=== PATIENT | female | born 1955 | race Caucasian/White ===

== ENCOUNTER 2016-11-21 01:00 | Emergency (ER) ==
[2016-11-21 01:12] VITALS: BP 174/96; TEMP 96.8; BMI 26.6
[2016-11-21] MEDS ORDERED: SODIUM CHLORIDE 1,000 ML IV STA (01:36)
[2016-11-21 02:16] LABS: BASOPHILS % (AUTO) 0.3 % (0.0-3.0); EOSINOPHILS % (AUTO) 0.3 % (0.0-7.0); HEMATOCRIT 38.2 % (37.0-47.0); HEMOGLOBIN 12.8 g/dl (12.0-16.0); IMMATURE GRANULOCYTE % (AUTO) 0.5 % (0.0-5.0); LYMPHOCYTES # (AUTO) 1.3 K/uL (0.60-3.4); LYMPHOCYTES % (AUTO) 20.9 (10.0-50.0); MEAN CORPUSCULAR HEMOGLOBIN 29.2 pg (27.0-31.0); MEAN CORPUSCULAR HGB CONC 33.5 (31.8-35.4); MEAN CORPUSCULAR VOLUME 87.2 fl (81.0-99.0); MONOCYTES # (AUTO) 0.6 K/uL (0.4-2.0); MONOCYTES % (AUTO) 9.5 (0-10); NEUTROPHILS # (AUTO) 4.3 K/ul (2.0-6.9); NEUTROPHILS % (AUTO) 68.5; PLATELET COUNT 178 10^3/uL (140-440); RED BLOOD COUNT 4.38 10^6/ul (4.20-5.40); WHITE BLOOD COUNT 6.33 K/ul (4.6-10.2)
[2016-11-21 02:34] LABS: ALBUMIN 3.8 g/dL (3.4-5.0); ALBUMIN/GLOBULIN RATIO 0.93; ANION GAP 17.1; BILIRUBIN,TOTAL 0.49 mg/dL (0.00-1.20); BUN/CREATININE RATIO 11.5; CALCIUM 9.7 mg/dL (8.2-10.2); CREATININE 1.13 mg/dL (0.60-1.30); POTASSIUM 4.1 mmol/L (3.5-5.10); TOTAL PROTEIN 7.9 g/dL (5.8-8.1)
[2016-11-21] MEDS: ATIVAN IVP PRN ×3 (02:46→06:02)
[2016-11-21 03:03] LABS: ABG BASE EXCESS 6 (-2.0-2.0); ABG HCO3 29.5 (22.0-26.0); ABG PCO2 36.6 mmHg (35-45); ABG PH 7.514 (7.35-7.45); ABG TCO2 31 (22.0-28.0)
[2016-11-21 03:16] LABS: TROPONIN I 0.014 ng/ml (0.0000-0.4000)
[2016-11-21 04:00] LABS: BILIRUBIN,URINE 1+ (NEGATIVE); KETONES,URINE Negative (NEGATIVE); LEUKOCYTE ESTERASE ,URINE Negative (NEGATIVE); NITRITE,URINE Negative (NEGATIVE); PH,URINE 5.5 (5-9); PROTEIN,URINE 1+ (NEGATIVE); URINE, BLOOD Negative (NEGATIVE)
[2016-11-21 04:01] LABS: ADD URINE MICROSCOPIC YES
[2016-11-21 04:11] LABS: COCAIN SCREEN,URINE NEGATIVE (NEGATIVE)
--- NOTE | 2016-11-21 04:15 | CT ---
EXAM: CT brain without contrast HISTORY: Mental status change TECHNIQUE: CT of the brain without intravenous contrast FINDINGS: There is no acute hemorrhage midline shift or mass effect. No hydrocephalus or abnormal extra-axial fluid collection. Chronic microvascular changes of the periventricular white matter, mi ld. No parenchymal attenuation abnormalities otherwise. Relative preservation of cortical volume. The bony cranium appears normal. The visualized paranasal sinuses are clear. Soft tissues without s ignificant abnormality. IMPRESSION: 1. Minor chronic microvascular change of the periventricular white matter. No acute intracranial a bnormality is seen.
--- NOTE | 2016-11-21 04:18 | CT ---
Exam: CT of the chest without contrast History: Chronic obstructive pulmonary disease and altered mental status Technique: [address] of the chest without intravascular contrast FINDINGS: The lung windows show no infiltrative opacities, suspicious nodules or masses. Mild emph ysematous change. Atherosclerotic calcification of the aorta and coronary arteries. No aneurysmal dilation of the aorta. Left approach pacemaker. No pathologic lymph node enlargement or abundance. Prior healed right-sided rib fractures. No acute findings of the bony thorax or chest wall soft t issues. Prior left sided rib fractures also present. Prior low grade thoracic spine wedge deformiti es at T12 and T11. No acute findings of the upper abdomen. Impression: 1. No acute findings of the chest 2. Mild emphysematous change
--- NOTE | 2016-11-21 05:22 | ED.PDOC ---
General Stated Complaint: brought in with her for altered mental status Time Seen by Physician: 01:05 Mode of Arrival: Walk-In Information Source: Patient, Family Exam Limitations: No limitations Nursing and Triage Documentation Reviewed and Agree: Yes <RANI EDGE - Last Filed: 11/21/16 05:55> <DAVON VALLADARES JR - Last Filed: 11/21/16 08:42> ED Provider: [facility] DAVON [facility]ES JR [facility] (DAVON VALLADARES JR) Chief Complaint: Altered Mental Status Primary Care Provider: JAMISON CABRERA ([facility] (DAVON VALLADARES JR) Neurological Complaint Exam - Altered Mental Status Complaint/Exam Current Mental Status: Unresponsiveness, Confusion Onset: Gradual Symptoms Are: Still present Timing: Constant Initial Severity: Mild Current Severity: Moderate Eye Deviation Present: No Character: Reports: Confusion, Agitation, Lethargy Aggravating: Reports: Ingestion Alleviating: Reports: None Associated Signs and Symptoms: Denies: Dizziness, Weakness, Headache, Fever, Illness, Nuchal rigidity, Seizure, Nausea, Vomiting, Recently depressed, Trauma Related History: Reports: Similar episode (brought in several times with same malady) Carotid Bruit Present: No Nystagmus Present: No Gag Reflex Present: Yes Meningeal Signs Positive: No Focal Weakness: Present: None Focal Sensory Loss: Present: None Gait: Unsteady Romberg Test Positive: No Signs of Injury: Present: Normal findings Thrombolytics Considered: No Differential Diagnoses: Medication reaction, Other <RANI EDGE - Last Filed: 11/21/16 05:55> Review of Systems - Review Of Systems Constitutional: Reports: No symptoms Eyes: Reports: No symptoms Ears, Nose, Mouth, Throat: Reports: No symptoms Respiratory: Reports: No symptoms Cardiac: Reports: No symptoms GI: Reports: No symptoms : Reports: No symptoms Musculoskeletal: Reports: No symptoms Skin: Reports: No symptoms Neurological: Reports: Cognitive dysfunction Endocrine: Reports: No symptoms Hematologic/Lymphatic: Reports: No symptoms All Other Systems: Reviewed and Negative <RANI EDGE - Last Filed: 11/21/16 05:55> Past Medical History - Past Medical History Previously Healthy: No Endocrine: Reports: None Cardiovascular: Reports: Hypertension Respiratory: Reports: COPD, Asthma, Pneumonia Hematological: Reports: Anemia Gastrointestinal: Reports: GERD Genitourinary: Reports: CKD Neuro/Psych: Reports: CVA, Schizophrenia Musculoskeletal: Reports: Arthritis, Other Cancer: Reports: Unknown Last Menstrual Period: UNKNOWN Other Pertinent Past Medical History: colon resection - Surgical History General Surgical History: Reports: Appendectomy, Pacemaker, Orthopedic (LEFT LEG FRACTURE,lorne in leg leg and hip SURGERY), Other (KIDNEY, COLON RESECTION, LEFT LEG) - Family History Family History: Reports: Unknown - Social History Smoking Status: Current every day smoker, Heavy tobacco smoker Hx Substance Use: Yes (MARIJUANA IN THE PAST) Alcohol Screening: None Lives: With family - Immunizations Tetanus Shot up to Date: Yes <RANI EDGE Filed: 11/21/16 05:55> Physical Exam - Physical Exam Appearance: Well-appearing, No pain distress, Well-nourished Eyes: SETH, EOMI, Conjunctiva clear ENT: Ears normal, Nose normal, Oropharynx normal Neck: Supple Respiratory: Airway patent, Breath sounds clear, Breath sounds equal, Respirations nonlabored Cardiovascular: RRR, Pulses normal, No rub, No murmur GI/: Soft, Nontender, No masses, Bowel sounds normal, No Organomegaly Musculoskeletal: Normal strength, ROM intact, No edema, No calf tenderness Skin: Warm, Dry, Normal color Neurological: Sensation intact, Motor intact, Reflexes intact, Cranial nerves intact, Disoriented Psychiatric: Affect appropriate, Mood appropriate <RANI EDGE Filed: 11/21/16 05:55> Interpretation - Radiology Interpretation Radiology Interpretation By: Radiologist Radiology Results: Negative Exam Interpreted: CT Scan - EKG Interpretation Time of EKG #1: 02:20 Rate: Normal Rhythm: Sinus Ectopy: None [place]: NL ST Segment: Normal Interpretation: nsr <RANI EDGE Filed: 11/21/16 05:55> Re-Evaluation - Re-Evaluation Time of Re-Evaluation: 05:23 Status: Improved (asleep) Vital Signs Stable: Yes Pain Level: 0 Appearance: NAD Lungs: Clear Skin: Warm and Dry Neuro: Alert and Oriented X3 CV: RRR <RANI EDGE Filed: 11/21/16 05:55> Physician Notification - Case Discussed Physician Notified: dr valladares Time of Notification: 05:23 <RANI EDGE Filed: 11/21/16 05:55> - Case Discussed Endorsed To/Discussed With: 0700 dr nowak Time of Discussion: 07:00 <DAVON VALLADARES JR - Last Filed: 11/21/16 08:42> Critical Care Note - Critical Care Note Total Time (mins): 15 <RANI EDGE - Last Filed: 11/21/16 05:55> Course - Course Hematology/Chemistry: 11/21/16 02:00 11/21/16 02:00 <RANI EDGE - Last Filed: 11/21/16 05:55> - Course Hematology/Chemistry: 11/21/16 02:00 11/21/16 02:00 <DAVON VALLADARES JR - Last Filed: 11/21/16 08:42> - Course Orders, Labs, Meds: Lab Review 11/21/16 11/21/16 11/21/16 01:33 02:00 03:55 WBC 6.33 RBC 4.38 Hgb 12.8 Hct 38.2 MCV 87.2 MCH 29.2 MCHC 33.5 RDW Coeff of Lynda 12.7 Plt Count 178 Immature Gran % (Auto) 0.5 Neut % (Auto) 68.5 Lymph % (Auto) 20.9 [place] % (Auto) 9.5 Eos % (Auto) 0.3 Baso % (Auto) 0.3 Immature Gran # (Auto) 0.0 Neut # 4.3 Lymph # 1.3 [place] # 0.6 Eos # 0.0 Baso # 0.0 D-Dimer 0.50 Puncture Site Lb O2 Saturation 100.0 ABG pH 7.514 H* ABG pCO2 36.6 ABG pO2 191.0 H ABG HCO3 29.5 H ABG Total CO2 31 H ABG Base Excess 6 H Aaron Test + FiO2 % 21.0 Sodium 142 Potassium 4.1 Chloride 107 Carbon Dioxide 22 L Anion Gap 17.1 BUN 13 Creatinine 1.13 Estimated GFR (MDRD) 49.00 BUN/Creatinine Ratio 11.50 Glucose 117 H Calcium 9.7 Total Bilirubin 0.49 AST 19 ALT 19 Alkaline Phosphatase 81 Total Creatine Kinase 69 Troponin I 0.0140 Total Protein 7.9 Albumin 3.8 Globulin 4.1 Albumin/Globulin Ratio 0.93 Urine Color Yellow Urine Clarity Clear Urine pH 5.5 Ur Specific Vivian >=1.030 Urine Protein 1+ Urine Glucose (UA) Negative Urine Ketones Negative Urine Blood Negative Urine Nitrite Negative Urine Bilirubin 1+ Urine Urobilinogen 0.2 Ur Leukocyte Esterase Negative Urine Microscopic RBC 0-2 Ur Squamous Epith Cells 2-5 Hyaline Casts 2-5 Salicylate Level mg/dL Urine Opiates Screen Positive Ur Oxycodone Screen Negative Urine Methadone Screen Negative Ur Propoxyphene Screen Negative Acetaminophen Ur Barbiturates Screen Negative U Tricyclic Antidepress Positive Ur Phencyclidine Scrn Negative Ur Amphetamine Screen Negative U Methamphetamines Scrn Negative U Benzodiazepines Scrn Positive Urine Cocaine Screen Negative U Cannabinoids Screen Negative Plasma/Serum Alcohol 11/21/16 05:35 WBC RBC Hgb Hct MCV MCH MCHC RDW Coeff of Lynda Plt Count Immature Gran % (Auto) Neut % (Auto) Lymph % (Auto) [place] % (Auto) Eos % (Auto) Baso % (Auto) Immature Gran # (Auto) Neut # Lymph # [place] # Eos # Baso # D-Dimer Puncture Site O2 Saturation ABG pH ABG pCO2 ABG pO2 ABG HCO3 ABG Total CO2 ABG Base Excess Aaron Test FiO2 % Sodium Potassium Chloride Carbon Dioxide Anion Gap BUN Creatinine Estimated GFR (MDRD) BUN/Creatinine Ratio Glucose Calcium Total Bilirubin AST ALT Alkaline Phosphatase Total Creatine Kinase Troponin I Total Protein Albumin Globulin Albumin/Globulin Ratio Urine Color Urine Clarity Urine pH Ur Specific Vivian Urine Protein Urine Glucose (UA) Urine Ketones Urine Blood Urine Nitrite Urine Bilirubin Urine Urobilinogen Ur Leukocyte Esterase Urine Microscopic RBC Ur Squamous Epith Cells Hyaline Casts Salicylate Level mg/dL < 5.0 Urine Opiates Screen Ur Oxycodone Screen Urine Methadone Screen Ur Propoxyphene Screen Acetaminophen < 3 L Ur Barbiturates Screen U Tricyclic Antidepress Ur Phencyclidine Scrn Ur Amphetamine Screen U Methamphetamines Scrn U Benzodiazepines Scrn Urine Cocaine Screen U Cannabinoids Screen Plasma/Serum Alcohol < 10.0 Orders Category Date Time Status ABG DRAW REQUEST Stat CARDIO 11/21/16 01:33 Completed EKG-(ED ONLY) Stat CARDIO 11/21/16 01:33 Completed IV [ED IV/MEDIPORT/POWERPORT] .ONCE EMERGENCY 11/21/16 01:36 Active ABG Stat LAB 11/21/16 01:33 Completed ACETAMINOPHEN Stat LAB 11/21/16 05:35 Completed CBC W/ AUTO DIFF Stat LAB 11/21/16 02:00 Completed COMPREHENSIVE METABOLIC PANEL Stat LAB 11/21/16 02:00 Completed CREATINE KINASE Stat LAB 11/21/16 02:00 Completed D-DIMER Stat LAB 11/21/16 02:00 Completed ETOH LEVEL [BLOOD ALCOHOL] Stat LAB 11/21/16 05:35 Completed SALICYLATE Stat LAB 11/21/16 05:35 Completed TROPONIN I Stat LAB 11/21/16 02:00 Completed URINALYSIS C & S IF INDICATED Stat LAB 11/21/16 03:55 Completed URINE DRUG SCREEN (RAPID FOR ED) [DRUG SCREEN, URINE, LAB 11/21/16 03:55 Completed RAPID] Stat 0.9 % Sodium Chloride [Saline Flush] MEDS 11/21/16 01:36 Active 1 syr IVF PRN PRN Diphenhydramine Inj [Benadryl] MEDS 11/21/16 06:57 Discontinued 25 mg IVP ONCE STA Hydroxyzine Pamoate [Vistaril] MEDS 11/21/16 08:24 Discontinued 50 mg PO ONCE STA Lorazepam Inj [Ativan] MEDS 11/21/16 02:09 Active 1 mg IVP Q2H PRN Lorazepam Inj [Ativan] MEDS 11/21/16 06:47 Discontinued 2 mg IVP ONCE STA Sodium Chloride 0.9% [Sodium Chloride] 1,000 ml MEDS 11/21/16 01:36 Active IV 30 mls/hr CT CHEST W/O CONTRAST Stat RADS 11/21/16 01:[address] HEAD W/O CONTRAST Stat RADS 11/21/16 01:34 Completed Medications Generic Name Dose Route Start Last Admin Trade Name Freq PRN Reason Stop Dose Admin Sodium Chloride 1,000 mls @ 30 mls/hr 11/21/16 01:36 11/21/16 03:10 Sodium Chloride IV 11/22/16 10:55 30 mls/hr .[id number] STA Administration Lorazepam 1 mg 11/21/16 02:09 11/21/16 06:02 Ativan IVP 1 mg Q2H PRN Administration Agitation Sodium Chloride 1 syr 11/21/16 01:36 11/21/16 02:50 Saline Flush IVF 1 syr PRN PRN Administration To flush IV Discontinued Medications Generic Name Dose Route Start Last Admin Trade Name Freq PRN Reason Stop Dose Admin Diphenhydramine HCl 25 mg 11/21/16 06:57 11/21/16 07:23 Benadryl IVP 11/21/16 06:58 25 mg ONCE STA Administration Hydroxyzine Pamoate 50 mg 11/21/16 08:24 11/21/16 08:30 Vistaril PO 11/21/16 08:25 50 mg ONCE STA Administration Lorazepam 2 mg 11/21/16 06:47 11/21/16 06:49 Ativan IVP 11/21/16 06:48 2 mg ONCE STA Administration (RANI EDGE) (DAVON VALLADARES JR) Vital Signs: Temp Pulse Resp BP Pulse Ox 11/21/16 01:01 96.8 F L 91 H 20 174/96 H 97 (RANI EDGE) (DAVON VALLADARES JR) Departure - Departure Time of Disposition: 05:23 Pt referred to PMD for follow-up: Yes Disposition Discussed With: Patient, Family <RANI EDGE - Last Filed: 11/21/16 05:55> <DAVON VALLADARES JR - Last Filed: 11/21/16 08:42> - Departure Disposition: HOME SELF-CARE Discharge Problem: Substance abuse Instructions: Polysubstance Abuse (ED) Condition: Stable Additional Instructions: f/u with pcsp Call your psychiatrist for medication refill today contact your personal physician for office follow up may take each morning medication when you get home and continue usual home medications return if fever over 101.0 or if unable to swallow medications advance diet gradually- begin with fluids when fully awake may resume usual activity recommend rest if any lightheadedness or drowsiness Allergies/Adverse Reactions: Allergies haloperidol [From Haldol] Allergy (Severe, Verified 11/21/16 01:13) swelling in mouth Pt to get medical alert necklace haloperidol lactate [From Haldol] Allergy (Severe, Verified 11/21/16 01:13) swelling in mouth Pt to get medical alert necklace olanzapine [From Zyprexa] Adverse Reaction (Severe, Verified 11/21/16 01:13) Hives oxytetracycline [From Terramycin] Adverse Reaction (Severe, Verified 11/21/16 01 :13) Hives oxytetracycline HCl [From Terramycin] Adverse Reaction (Severe, Verified 01:13) Hives Sulfa (Sulfonamide Antibiotics) Adverse Reaction (Verified 11/21/16 01:13) Home Medications: Ambulatory Orders Hydrocodone Bit/Acetaminophen [Lortab 10-500] 1 tab PO TID #1 11/02/14 Budesonide/Formoterol Fumarate [Symbicort 160-4.5 Mcg Inhaler] 2 puff IH BID Benztropine Mesylate 2 mg PO DAILY 04/20/15 Quetiapine Fumarate [Seroquel] 600 mg PO BEDTIME 10/29/16 Baclofen 20 mg PO BID 11/21/16 Citalopram Hydrobromide [Citalopram HBr] 40 mg PO BEDTIME 11/21/16 Cyclobenzaprine HCl 10 mg PO BID 11/21/16 Dicyclomine HCl 10 mg PO TID 11/21/16 Fluphenazine HCl 10 mg PO BEDTIME 11/21/16 Gabapentin 300 mg PO TID 11/21/16 Hydroxyzine HCl 50 mg PO TID 11/21/16 Omeprazole [Prilosec] 20 mg PO QDAC 11/21/16 Zolpidem Tartrate [Ambien] 5 mg PO BEDTIME 11/21/16
[2016-11-21 06:03] LABS: ACETAMINOPHEN < 3 ug/ml (10-30); SALICYLATE < 5.0 mg/dL (2.8-20.0)
[2016-11-21] MEDS ORDERED: ATIVAN IVP STA (06:47)
[2016-11-21] MEDS ORDERED: BENADRYL IVP STA (06:57)
[2016-11-21] MEDS ORDERED: VISTARIL PO STA (08:24)
== END 2016-11-21 08:45 | disposition home or self-care (01) ==
LOC: ED 01:00
DX: F19.10 Other psychoactive substance abuse, uncomplicated (principal); F20.9 Schizophrenia, unspecified; I10 Essential (primary) hypertension; F17.210 Nicotine dependence, cigarettes, uncomplicated; Z79.899 Other long term (current) drug therapy; Z87.19 Personal history of other diseases of the digestive system; Z86.73 Personal history of transient ischemic attack (TIA), and cerebral infarction without residual deficits; Z87.09 Personal history of other diseases of the respiratory system; Z95.0 Presence of cardiac pacemaker
CPT/HCPCS: 36415; 80053; 80306; 80307; 81001; 82550; 82803; 84484; 85025; 85379; 93005; 93010; 96360; 96361; 96374; 96375; 96376; 99285

== ENCOUNTER 2016-11-29 10:52 | Emergency (ER) ==
[2016-11-29 11:00] VITALS: BP 97/51; TEMP 97.9; BMI 27.4
--- NOTE | 2016-11-29 11:16 | ED.PDOC ---
General ED Provider: Dr. SHYLA KOHLI Chief Complaint: Non-specific Complaint Stated Complaint: Patient is a 61 year female who comes to the Er with right cathy area pain after she tripped over the cat and twisted right leg two days ago. States she has limited weight bearing on it. Time Seen by Physician: 11:14 Mode of Arrival: Wheelchair Information Source: Patient Exam Limitations: No limitations Primary Care Provider: JAMISON CABRERA Nursing and Triage Documentation Reviewed and Agree: Yes Musculoskeletal Complaint Exam - Hip/Pelvis Complaint/Exam Location of Pain: Reports: Right Mechanism of Injury: Reports: Trauma (Twisting when she tripped on cat ) Onset/Duration: 2 days Symptoms Are: Still present Initial Severity: Severe Current Severity: Moderate Location: Reports: Discrete Character: Reports: Aching, Throbbing Aggravating: Reports: Movement, Weight bearing Alleviating: Reports: Rest, Position Associated Signs and Symptoms: Denies: Swelling, Redness, Bruising, Fever, Weakness, Dizziness, Syncope, Abdominal pain, Knee pain Related History: Denies: Similar episode, Occupational injury Able to Bear Weight: Yes Septic Arthritis Risk Factors: Reports: None Related Surgical History: Reports: None Pelvis Palpation: Stable Hip/Pelvis Findings: Absent: Extremity shortened, Swelling, Ecchymosis, Erythema , Warmth, Blisters Tenderness: Present: Right, Pubis Range of Motion Limited In: Present: Extension NV Bundle Intact Distal to Injury: Yes Differential Diagnoses: Fracture, Sprain, Strain Review of Systems - Review Of Systems Constitutional: Reports: No symptoms Eyes: Reports: No symptoms Ears, Nose, Mouth, Throat: Reports: No symptoms Respiratory: Reports: No symptoms Cardiac: Reports: No symptoms GI: Reports: No symptoms : Reports: No symptoms Musculoskeletal: Reports: Joint pain Skin: Reports: No symptoms Neurological: Reports: Anxiety Endocrine: Reports: No symptoms Hematologic/Lymphatic: Reports: No symptoms All Other Systems: Reviewed and Negative Past Medical History - Past Medical History Previously Healthy: No Endocrine: Reports: None Cardiovascular: Reports: Hypertension Respiratory: Reports: COPD, Asthma, Pneumonia Hematological: Reports: Anemia Gastrointestinal: Reports: GERD Genitourinary: Reports: CKD Neuro/Psych: Reports: CVA, Schizophrenia Musculoskeletal: Reports: Arthritis, Other Cancer: Reports: Unknown Last Menstrual Period: 1999 Other Pertinent Past Medical History: colon resection - Surgical History General Surgical History: Reports: Appendectomy, Pacemaker, Orthopedic (LEFT LEG FRACTURE,lorne in leg leg and hip SURGERY), Other (KIDNEY, COLON RESECTION, LEFT LEG) - Family History Family History: Reports: Unknown - Social History Smoking Status: Current every day smoker Hx Substance Use: No Alcohol Screening: None - Immunizations Tetanus Shot up to Date: Yes Physical Exam - Physical Exam Appearance: Well-nourished Pain Distress: Mild Eyes: SETH Respiratory: Airway patent, Breath sounds clear, Breath sounds equal, Respirations nonlabored Cardiovascular: RRR, Pulses normal, No rub, No murmur GI/: Soft, Nontender, No masses, Bowel sounds normal, No Organomegaly Musculoskeletal: Normal strength, No edema, No calf tenderness, Limited ROM ( right hip ) Skin: Warm, Dry, Normal color Neurological: Sensation intact, Motor intact, Reflexes intact, Cranial nerves intact, Alert, Oriented Psychiatric: Affect appropriate, Mood appropriate Interpretation - Radiology Interpretation Radiology Interpretation By: Radiologist Radiology Results: Negative Exam Interpreted: Other (Pelvic and right hip. ) Critical Care Note - Critical Care Note Total Time (mins): 0 Course - Course Orders, Labs, Meds: Orders Category Date Time Status HIP, RIGHT 2 VIEWS Stat RADS 11/29/16 11:15 Completed PELVIS 1 OR 2 VIEWS Stat RADS 11/29/16 11:16 Completed Vital Signs: Temp Pulse Resp BP Pulse Ox 11/29/16 10:53 97.9 F 87 22 97/51 L 94 L Departure - Departure Time of Disposition: 12:19 Disposition: HOME SELF-CARE Discharge Problem: Hip sprain Instructions: Hip Sprain (ED) Condition: Fair Pt referred to PMD for follow-up: Yes Additional Instructions: Continue home medications Follow up with PCP in 3 days. Allergies/Adverse Reactions: Allergies haloperidol [From Haldol] Allergy (Severe, Verified 11/29/16 11:03) swelling in mouth Pt to get medical alert necklace haloperidol lactate [From Haldol] Allergy (Severe, Verified 11/29/16 11:03) swelling in mouth Pt to get medical alert necklace olanzapine [From Zyprexa] Adverse Reaction (Severe, Verified 11/29/16 11:03) Hives oxytetracycline [From Terramycin] Adverse Reaction (Severe, Verified 11/29/16 11 :03) Hives oxytetracycline HCl [From Terramycin] Adverse Reaction (Severe, Verified 11:03) Hives Sulfa (Sulfonamide Antibiotics) Adverse Reaction (Verified 11/29/16 11:03) Home Medications: Ambulatory Orders Hydrocodone Bit/Acetaminophen [Lortab 10-500] 1 tab PO TID #1 11/02/14 Budesonide/Formoterol Fumarate [Symbicort 160-4.5 Mcg Inhaler] 2 puff IH BID Benztropine Mesylate 2 mg PO DAILY 04/20/15 Quetiapine Fumarate [Seroquel] 600 mg PO BEDTIME 10/29/16 Baclofen 20 mg PO BID 11/21/16 Citalopram Hydrobromide [Citalopram HBr] 40 mg PO BEDTIME 11/21/16 Cyclobenzaprine HCl 10 mg PO BID 11/21/16 Dicyclomine HCl 10 mg PO TID 11/21/16 Fluphenazine HCl 10 mg PO BEDTIME 11/21/16 Gabapentin 300 mg PO TID 11/21/16 Hydroxyzine HCl 50 mg PO TID 11/21/16 Omeprazole [Prilosec] 20 mg PO QDAC 11/21/16 Zolpidem Tartrate [Ambien] 5 mg PO BEDTIME 11/21/16 Disposition Discussed With: Patient, Family
--- NOTE | 2016-11-29 11:59 | DI ---
Examination: Two radiographic images of the pelvis. Comparison: 11/29/2016 and 02/05/2015. Reason for study: Fall with right hip pain. FINDINGS: No acute fracture or dislocation. The the right femoral head is articulating with the [place] acetabulum. The pelvic ring appears to be intact. The partially imaged left intertrochanteric p late and screw fixation is unchanged from the prior study. Impression: No acute fracture or malalignment is seen within the right hip.
--- NOTE | 2016-11-29 11:59 | DI ---
Examination: Two radiographic images of the right hip. Comparison: Pelvic radiographs from the same day. Reason for study: Hip pain. FINDINGS: No acute fracture or dislocation. The femoral head articulates with the acetabulum. No obvious cortical irregularity or malalignment. Impression: No acute fracture or dislocation in the right hip.
== END 2016-11-29 12:38 | disposition home or self-care (01) ==
LOC: ED 10:52
DX: S73.101A Unspecified sprain of right hip, initial encounter (principal); W01.0XXA Fall on same level from slipping, tripping and stumbling without subsequent striking against object, initial encounter; F17.210 Nicotine dependence, cigarettes, uncomplicated
CPT/HCPCS: 99282; 99283

== ENCOUNTER 2017-02-20 09:00 | Outpatient (CLI) ==
--- NOTE | 2017-02-20 09:42 | DI ---
EXAM: Four views of the lumbar spine HISTORY: Facet arthropathy and degenerative disease of the lumbar spine. COMPARISON: Lumbar spine and 10/11/2008 FINDINGS: There is compression deformity at T11 and T12 which is unchanged. There is minimal compre ssion deformity at L3 which is stable. No new compression fracture is identified. There is no subl uxation. There is scattered facet arthropathy. The lumbosacral junction is intact and unchanged. There is atherosclerotic disease of the aorta. IMPRESSION: 1. No new/acute compression fracture or subluxation. 2. Multilevel compression deformity, stable since 2007. 3. Multilevel degenerative disease of the spine.
--- NOTE | 2017-02-20 09:42 | DI ---
EXAM: Cervical spine six view HISTORY: Cervical disc degeneration, disc disorder with radiculopathy COMPARISON: None TECHNIQUE: Five views cervical spine were performed including oblique views FINDINGS: Evaluation is limited due to patient positioning. C6 and C7 are partially obscured on th e lateral view. No fracture is visualized. Visualized vertebral bodies normal in height. Visualiz ed intervertebral disc spaces maintained with C6 and C7 not visualized. Multilevel facet and uncove rtebral hypertrophy. Evaluation of the neural foramen on the right is limited due to positioning. There could be neural foraminal narrowing on the right in the lower cervical spine though this is ve ry poorly evaluated. There is a 2 mm anterolisthesis of C3 on C4 and a 2 mm anterolisthesis of C4 o n C5. Prevertebral soft tissues appear normal IMPRESSION: 1. Limited examination due to positioning. 2. Chronic discogenic degenerative disease and facet arthrosis with 2 mm anterolisthesis of C3 on C 4 and C4 on C5
== END 2017-02-20 09:01 | disposition home or self-care (01) ==
LOC: RAD 09:00
PROVIDERS: ATTEND Pain Medicine Interventional Pain Medicine
DX: M51.36 Other intervertebral disc degeneration, lumbar region (principal); M51.37 Other intervertebral disc degeneration, lumbosacral region; M47.816 Spondylosis without myelopathy or radiculopathy, lumbar region; M47.817 Spondylosis without myelopathy or radiculopathy, lumbosacral region; M50.122 Cervical disc disorder at C5-C6 level with radiculopathy; M50.31 Other cervical disc degeneration, high cervical region; M50.321 Other cervical disc degeneration at C4-C5 level

== ENCOUNTER 2017-03-26 17:03 | Emergency (ER) ==
[2017-03-26 17:15] VITALS: BP 195/117; TEMP 97.2; BMI 28.3
[2017-03-26] MEDS ORDERED: TRANDATE IVP STA (17:15)
[2017-03-26] MEDS ORDERED: CATAPRES PO STA (17:15)
[2017-03-26 17:39] LABS: BASOPHILS % (AUTO) 0.3 % (0.0-3.0); EOSINOPHILS % (AUTO) 0.2 % (0.0-7.0); HEMATOCRIT 33.2 % (37.0-47.0); IMMATURE GRANULOCYTE % (AUTO) 0.5 % (0.0-5.0); LYMPHOCYTES # (AUTO) 1.6 K/uL (0.60-3.4); LYMPHOCYTES % (AUTO) 27.3 (10.0-50.0); MEAN CORPUSCULAR HEMOGLOBIN 29.5 pg (27.0-31.0); MEAN CORPUSCULAR HGB CONC 33.1 (31.8-35.4); MONOCYTES # (AUTO) 0.5 K/uL (0.4-2.0); MONOCYTES % (AUTO) 7.7 (0-10); NEUTROPHILS # (AUTO) 3.8 K/ul (2.0-6.9); PLATELET COUNT 143 10^3/uL (140-440); RED BLOOD COUNT 3.73 10^6/ul (4.20-5.40); WHITE BLOOD COUNT 5.98 K/ul (4.6-10.2)
[2017-03-26] MEDS ORDERED: NORVASC PO STA (18:04)
--- NOTE | 2017-03-26 18:04 | CT ---
EXAM: CT head without contrast HISTORY: Headache COMPARISON: CT head from 11/21/2016 TECHNIQUE: Helical axial CT of the head was performed without contrast. Coronal and sagittal reconst ructions were performed. FINDINGS: Examination is stable. There is no acute intracranial abnormality. There is no hemorrhage, mass, mid line shift, abnormal extra-axial fluid collection, hydrocephalus or evolving ischemia. The donald-whit e matter junction is well maintained. There is trace chronic small vessel ischemia in the [place]. Brain parenchyma, ventricles and sulci are otherwise normal. There are no acute calvarial lesions. Visualized orbits and globes are unremarkable. The mastoid a ir cells are poorly aerated. The visualized paranasal sinuses show no air-fluid levels. There is sergio e membrane thickening noted and maxillary sinus wall thickening on the right. The sphenoid sinus is hypoplastic. IMPRESSION: 1. No acute intracranial abnormality. There is some minimal chronic small vessel ischemia in the wh ite matter. 2. 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
--- NOTE | 2017-03-26 18:09 | ED.PDOC ---
General ED Provider: Dr. RANI DE LA PAZ-ER Chief Complaint: Hypertension Stated Complaint: my bp has been up for 3 days and my head hurts--my chest hurt yesterday but not today Time Seen by Physician: 17:05 Mode of Arrival: Walk-In Information Source: Patient, Family Exam Limitations: No limitations [facility] and Triage Documentation Reviewed and Agree: Yes Cardiovascular Complaint Exam - Hypertension Complaint/Exam Onset/Duration: 3 days Symptoms Are: Still present Timing: Constant Reported B/P Prior to Arrival: 200/120 Aggravating: Reports: None Alleviating: Reports: None Associated Signs and Symptoms: Reports: Headache. Denies: Chest pain, Vision changes, Anxiety, Recent stress, Numbness, Tingling, Weakness, Dizziness, Short of air, Swelling Related History: Reports: Current Kaiden Inhibitors Cardiac Risk Factors: Reports: Hypertension Recent Change in Medications: No A/V [place]: No Papilledema Present: No JVD Present: No Carotid Bruit Present: No Femoral Pulses Bounding: Yes Differential Diagnoses: Hypertension Review of Systems - Review Of Systems Constitutional: Reports: No symptoms Eyes: Reports: No symptoms Ears, Nose, Mouth, Throat: Reports: No symptoms Respiratory: Reports: No symptoms Cardiac: Reports: No symptoms GI: Reports: No symptoms : Reports: No symptoms Musculoskeletal: Reports: No symptoms Skin: Reports: No symptoms Neurological: Reports: Headache Endocrine: Reports: No symptoms Hematologic/Lymphatic: Reports: No symptoms All Other Systems: Reviewed and Negative Past Medical History - Past Medical History Previously Healthy: No Endocrine: Reports: None Cardiovascular: Reports: Hypertension Respiratory: Reports: COPD, Asthma, Pneumonia Hematological: Reports: Anemia Gastrointestinal: Reports: GERD Genitourinary: Reports: CKD Neuro/Psych: Reports: CVA, Schizophrenia Musculoskeletal: Reports: Arthritis, Other Cancer: Reports: Unknown Last Menstrual Period: N/A Other Pertinent Past Medical History: colon resection - Surgical History General Surgical History: Reports: Appendectomy, Pacemaker, Orthopedic (LEFT LEG FRACTURE,lorne in leg leg and hip SURGERY), Other (KIDNEY, COLON RESECTION, LEFT LEG) - Family History Family History: Reports: Unknown - Social History Smoking Status: Current every day smoker Hx Substance Use: No Alcohol Screening: None Lives: With family - Immunizations Tetanus Shot up to Date: Yes Physical Exam - Physical Exam Appearance: Well-appearing, No pain distress, Well-nourished Pain Distress: Mild Eyes: SETH, EOMI, Conjunctiva clear ENT: Ears normal, Nose normal, Oropharynx normal Neck: Supple Respiratory: Airway patent, Breath sounds clear, Breath sounds equal, Respirations nonlabored Cardiovascular: RRR, Pulses normal, No rub, No murmur GI/: Soft, Nontender, No masses, Bowel sounds normal, No Organomegaly Musculoskeletal: Normal strength, ROM intact, No edema, No calf tenderness Skin: Warm, Dry, Normal color Neurological: Sensation intact, Motor intact, Reflexes intact, Cranial nerves intact, Alert, Oriented Psychiatric: Affect appropriate, Mood appropriate Interpretation - Radiology Interpretation Radiology Interpretation By: Radiologist Radiology Results: Negative Exam Interpreted: CT Scan - EKG Interpretation Time of EKG #1: 18:10 Rate: Normal Rhythm: Sinus Ectopy: None [place]: NL ST Segment: Normal Re-Evaluation - Re-Evaluation Time of Re-Evaluation: 18:16 Status: Improved (bp 160/78--fallon resolved "i sure feel a lot better') Vital Signs Stable: Yes Pain Level: 0 Appearance: NAD Lungs: Clear Skin: Warm and Dry Neuro: Alert and Oriented X3 CV: RRR Critical Care Note - Critical Care Note Total Time (mins): 0 Course - Course Hematology/Chemistry: 03/26/17 17:35 Orders, Labs, Meds: Lab Review 03/26/17 17:35 WBC 5.98 RBC 3.73 L Hgb 11.0 L Hct 33.2 L MCV 89.0 MCH 29.5 MCHC 33.1 RDW Coeff of Lynda 13.0 Plt Count 143 Immature Gran % (Auto) 0.5 Neut % (Auto) 64.0 Lymph % (Auto) 27.3 Wise % (Auto) 7.7 Eos % (Auto) 0.2 Baso % (Auto) 0.3 Immature Gran # (Auto) 0.0 Neut # 3.8 Lymph # 1.6 Wise # 0.5 Eos # 0.0 Baso # 0.0 Orders Category Date Time Status EKG-(ED ONLY) Stat CARDIO 03/26/17 17:14 Completed Fitness Instructor [ED SERVICES HOST APPLIED] .ONCE EMERGENCY 03/26/17 17:15 Active IV [ED IV/MEDIPORT/POWERPORT] .ONCE EMERGENCY 03/26/17 17:15 Active CBC W/ AUTO DIFF Stat LAB 03/26/17 17:35 Completed COMPREHENSIVE METABOLIC PANEL Stat LAB 03/26/17 17:35 Received CREATINE KINASE Stat LAB 03/26/17 17:35 Received TROPONIN I Stat LAB 03/26/17 17:35 Received 0.9 % Sodium Chloride [Saline Flush] MEDS 03/26/17 17:15 Active 1 syr IVF PRN PRN Amlodipine Besylate [Norvasc] MEDS 03/26/17 18:04 Discontinued 5 mg PO ONCE STA Clonidine HCl [Catapres] MEDS 03/26/17 17:15 Discontinued 0.2 mg PO ONCE STA Labetalol HCl [Trandate] MEDS 03/26/17 17:15 Discontinued 20 [address] IVP ONCE STA CT HEAD W/O CONTRAST Stat RADS 03/26/17 17:27 Completed Medications Generic Name Dose Route Start Last Admin Trade Name Freq PRN Reason Stop Dose Admin Sodium Chloride 1 syr 03/26/17 17:15 03/26/17 18:02 Saline Flush IVF 1 syr PRN PRN Administration To flush IV Discontinued Medications Generic Name Dose Route Start Last Admin Trade Name Freq PRN Reason Stop Dose Admin Amlodipine Besylate 5 mg 03/26/17 18:04 Norvasc PO 03/26/17 18:05 ONCE STA Clonidine 0.2 mg 03/26/17 17:15 03/26/17 17:15 Catapres PO 03/26/17 17:16 0.2 mg ONCE STA Administration Labetalol HCl 20 mg 03/26/17 17:15 03/26/17 18:01 Trandate IVP 03/26/17 17:16 20 mg ONCE STA Administration Vital Signs: Temp Pulse Resp BP Pulse Ox 03/26/17 17:03 97.2 F L 83 20 195/117 H 93 L ELODIA Risk Score ELODIA Risk Score: Risk Score Odds of by 30D 0 0.1 (0.1-0.2) 1 0.3 (0.2-0.3) 2 0.4 (0.3-0.5) 3 0.7 (0.6-0.9) 4 1.2 (1.0-1.5) 5 2.2 (1.9-2.6) 6 3.0 (2.5-3.6) 7 4.8 (3.8-6.1) Departure - Departure Time of Disposition: 18:17 Disposition: HOME SELF-CARE Discharge Problem: HTN (hypertension) Qualifiers: Hypertension type: essential hypertension Qualifier Code: (I10) Essential ( primary) hypertension Instructions: Hypertensive Crisis (ED) Condition: Good Pt referred to PMD for follow-up: Yes Additional Instructions: continue lisinopril --add procardia xl 30mg #30--monitor bp--f/u with pcp Allergies/Adverse Reactions: Allergies haloperidol [From Haldol] Allergy (Severe, Verified 03/26/17 17:10) swelling in mouth Pt to get medical alert necklace haloperidol lactate [From Haldol] Allergy (Severe, Verified 03/26/17 17:10) swelling in mouth Pt to get medical alert necklace olanzapine [From Zyprexa] Adverse Reaction (Severe, Verified 03/26/17 17:10) Hives oxytetracycline [From Terramycin] Adverse Reaction (Severe, Verified 03/26/17 17 :10) Hives oxytetracycline HCl [From Terramycin] Adverse Reaction (Severe, Verified 17:10) Hives Sulfa (Sulfonamide Antibiotics) Adverse Reaction (Verified 03/26/17 17:10) Home Medications: Ambulatory Orders Hydrocodone Bit/Acetaminophen [Lortab 10-500] 1 tab PO TID #1 11/02/14 Budesonide/Formoterol Fumarate [Symbicort 160-4.5 Mcg Inhaler] 2 puff IH BID Benztropine Mesylate 2 mg PO DAILY 04/20/15 Quetiapine Fumarate [Seroquel] 600 mg PO BEDTIME 10/29/16 Baclofen 20 mg PO BID 11/21/16 Citalopram Hydrobromide [Citalopram HBr] 40 mg PO BEDTIME 11/21/16 Cyclobenzaprine HCl 10 mg PO BID 11/21/16 Dicyclomine HCl 10 mg PO TID 11/21/16 Fluphenazine HCl 10 mg PO BEDTIME 11/21/16 Gabapentin 300 mg PO TID 11/21/16 Hydroxyzine HCl 50 mg PO TID 11/21/16 Omeprazole [Prilosec] 20 mg PO QDAC 11/21/16 Zolpidem Tartrate [Ambien] 5 mg PO BEDTIME 11/21/16 Hydroxyzine HCl 25 mg PO BEDTIME 12/24/16 Disposition Discussed With: Patient, Family
[2017-03-26 18:15] LABS: ALBUMIN 3.5 g/dL (3.4-5.0); ALBUMIN/GLOBULIN RATIO 0.95; ANION GAP 11.5; BILIRUBIN,TOTAL 0.26 mg/dL (0.00-1.20); BUN/CREATININE RATIO 13.75; CALCIUM 9.1 mg/dL (8.2-10.2); CREATININE 0.8 mg/dL (0.60-1.30); POTASSIUM 3.5 mmol/L (3.5-5.10); TOTAL PROTEIN 7.2 g/dL (5.8-8.1); TROPONIN I 0.012 ng/ml (0.0000-0.4000)
[2017-03-26 18:35] LABS: CREATINE KINASE MB 3.5 ng/ml (0.0-3.6)
== END 2017-03-26 18:29 | disposition home or self-care (01) ==
LOC: ED 17:03
DX: I10 Essential (primary) hypertension (principal); R51 Headache; N18.9 Chronic kidney disease, unspecified; D63.1 Anemia in chronic kidney disease; J44.9 Chronic obstructive pulmonary disease, unspecified; F17.210 Nicotine dependence, cigarettes, uncomplicated; Z79.899 Other long term (current) drug therapy; Z86.73 Personal history of transient ischemic attack (TIA), and cerebral infarction without residual deficits
CPT/HCPCS: 36415; 80053; 82550; 82553; 84484; 85025; 93005; 93010; 96374; 99283

== ENCOUNTER 2017-04-04 13:25 | Emergency (ER) ==
[2017-04-04 13:38] VITALS: BP 162/97; TEMP 97.6; BMI 28.4
--- NOTE | 2017-04-04 14:50 | ED.PDOC ---
General ED Provider: Dr. SHYLA KOHLI Chief Complaint: Extremity Pain/Injury Stated Complaint: Patient states she twisted her right ankle 2 days ago and still has pain. Time Seen by Physician: 14:48 Mode of Arrival: Wheelchair Information Source: Patient, Family Exam Limitations: No limitations [facility] Nursing and Triage Documentation Reviewed and Agree: Yes Review of Systems - Review Of Systems Constitutional: Reports: No symptoms Eyes: Reports: No symptoms Ears, Nose, Mouth, Throat: Reports: No symptoms Respiratory: Reports: No symptoms Cardiac: Reports: No symptoms GI: Reports: No symptoms : Reports: No symptoms Musculoskeletal: Reports: Joint pain Skin: Reports: No symptoms Neurological: Reports: Anxiety Endocrine: Reports: No symptoms Hematologic/Lymphatic: Reports: No symptoms All Other Systems: Reviewed and Negative Past Medical History - Past Medical History Previously Healthy: No Endocrine: Reports: None Cardiovascular: Reports: Hypertension Respiratory: Reports: COPD, Asthma, Pneumonia Hematological: Reports: Anemia Gastrointestinal: Reports: GERD Genitourinary: Reports: CKD Neuro/Psych: Reports: CVA, Schizophrenia Musculoskeletal: Reports: Arthritis, Other Cancer: Reports: Unknown Last Menstrual Period: none Other Pertinent Past Medical History: colon resection - Surgical History General Surgical History: Reports: Appendectomy, Pacemaker, Orthopedic (LEFT LEG FRACTURE,lorne in leg leg and hip SURGERY), Other (KIDNEY, COLON RESECTION, LEFT LEG) - Family History Family History: Reports: Unknown - Social History Smoking Status: Current every day smoker Hx Substance Use: No Alcohol Screening: None Physical Exam - Physical Exam Appearance: Well-appearing, No pain distress, Well-nourished Eyes: SETH, EOMI, Conjunctiva clear ENT: Ears normal, Nose normal, Oropharynx normal Respiratory: Airway patent, Breath sounds clear, Breath sounds equal, Respirations nonlabored Cardiovascular: RRR, Pulses normal, No rub, No murmur GI/: Soft, Nontender, No masses, Bowel sounds normal, No Organomegaly Musculoskeletal: ROM intact, No edema, No calf tenderness Skin: Warm, Dry, Normal color Neurological: Sensation intact, Motor intact, Reflexes intact, Cranial nerves intact, Alert, Oriented Psychiatric: Affect appropriate, Mood appropriate Interpretation - Radiology Interpretation Radiology Interpretation By: ED Physician Radiology Results: Negative Exam Interpreted: Other (Ankle x ray ) Critical Care Note - Critical Care Note Total Time (mins): 0 Course - Course Orders, Labs, Meds: Orders Category Date Time Status ANKLE, RIGHT MIN 3 VIEWS Stat RADS 04/04/17 14:11 Completed Vital Signs: Temp Pulse Resp BP Pulse Ox 04/04/17 13:25 97.6 F 67 18 162/97 H 93 L Departure - Departure Time of Disposition: 14:49 Disposition: HOME SELF-CARE Discharge Problem: Right ankle sprain Qualifiers: Encounter type: initial encounter Involved ligament of ankle: other ligament Qualifier Code: (S93.491A) Sprain of other ligament of right ankle, initial encounter Instructions: Ankle Sprain (ED) Condition: Stable Pt referred to PMD for follow-up: Yes Additional Instructions: Take home pain medications Rest Followup with PCP as needed Allergies/Adverse Reactions: Allergies haloperidol [From Haldol] Allergy (Severe, Verified 04/04/17 13:30) swelling in mouth Pt to get medical alert necklace haloperidol lactate [From Haldol] Allergy (Severe, Verified 04/04/17 13:30) swelling in mouth Pt to get medical alert necklace olanzapine [From Zyprexa] Adverse Reaction (Severe, Verified 04/04/17 13:30) Hives oxytetracycline [From Terramycin] Adverse Reaction (Severe, Verified 04/04/17 13 :30) Hives oxytetracycline HCl [From Terramycin] Adverse Reaction (Severe, Verified 13:30) Hives Sulfa (Sulfonamide Antibiotics) Adverse Reaction (Verified 04/04/17 13:30) Home Medications: Ambulatory Orders Hydrocodone Bit/Acetaminophen [Lortab 10-500] 1 tab PO TID #1 11/02/14 Budesonide/Formoterol Fumarate [Symbicort 160-4.5 Mcg Inhaler] 2 puff IH BID Benztropine Mesylate 2 mg PO DAILY 04/20/15 Quetiapine Fumarate [Seroquel] 600 mg PO BEDTIME 10/29/16 Baclofen 20 mg PO BID 11/21/16 Citalopram Hydrobromide [Citalopram HBr] 40 mg PO BEDTIME 11/21/16 Cyclobenzaprine HCl 10 mg PO BID 11/21/16 Dicyclomine HCl 10 mg PO TID 11/21/16 Fluphenazine HCl 10 mg PO BEDTIME 11/21/16 Omeprazole [Prilosec] 20 mg PO QDAC 11/21/16 Zolpidem Tartrate [Ambien] 5 mg PO BEDTIME 11/21/16 Hydroxyzine HCl 25 mg PO BEDTIME 12/24/16 Disposition Discussed With: Patient
--- NOTE | 2017-04-04 17:36 | DI ---
EXAM: Three views of the right ankle. History: Right ankle trauma. Findings: No acute fracture or dislocation. Diffuse subcutaneous edema. Mild polyarticular joint space narrowing. Impression: No acute osseous abnormality. Subcutaneous edema.
== END 2017-04-04 14:53 | disposition home or self-care (01) ==
LOC: ED 13:25
DX: S93.491A Sprain of other ligament of right ankle, initial encounter (principal); X50.1XXA Overexertion from prolonged static or awkward postures, initial encounter; F17.210 Nicotine dependence, cigarettes, uncomplicated
CPT/HCPCS: 99282

== ENCOUNTER 2017-04-10 14:08 | Outpatient (CLI) | END 2017-04-10 14:09 | disposition home or self-care (01) | LOC: RAD 14:08 | PROVIDERS: ATTEND Emergency Medicine | DX: Z12.31 Encounter for screening mammogram for malignant neoplasm of breast (principal); R19.7 Diarrhea, unspecified; E11.9 Type 2 diabetes mellitus without complications ==

== ENCOUNTER 2017-05-03 14:13 | Emergency (ER) ==
[2017-05-03 14:19] VITALS: BP 119/82; TEMP 97.4; BMI 29.1
[2017-05-03] MEDS ORDERED: SODIUM CHLORIDE 1,000 ML IV STA (14:30)
[2017-05-03] MEDS ORDERED: DUONEB NEB STA (14:31)
[2017-05-03 15:00] LABS: BASOPHILS % (AUTO) 0.4 % (0.0-3.0); EOSINOPHILS # (AUTO) 0.1 K/ul (0.0-0.7); EOSINOPHILS % (AUTO) 2.4 % (0.0-7.0); HEMATOCRIT 37.5 % (37.0-47.0); HEMOGLOBIN 12.5 g/dl (12.0-16.0); IMMATURE GRANULOCYTE % (AUTO) 0.2 % (0.0-5.0); LYMPHOCYTES # (AUTO) 1.7 K/uL (0.60-3.4); LYMPHOCYTES % (AUTO) 30.7 (10.0-50.0); MEAN CORPUSCULAR HEMOGLOBIN 29.8 pg (27.0-31.0); MEAN CORPUSCULAR HGB CONC 33.3 (31.8-35.4); MEAN CORPUSCULAR VOLUME 89.5 fl (81.0-99.0); MONOCYTES # (AUTO) 0.4 K/uL (0.4-2.0); MONOCYTES % (AUTO) 6.9 (0-10); NEUTROPHILS # (AUTO) 3.3 K/ul (2.0-6.9); NEUTROPHILS % (AUTO) 59.4; PLATELET COUNT 151 10^3/uL (140-440); RED BLOOD COUNT 4.19 10^6/ul (4.20-5.40); WHITE BLOOD COUNT 5.47 K/ul (4.6-10.2)
[2017-05-03 15:02] LABS: ABG BASE EXCESS 4 (-2.0-2.0); ABG HCO3 27.5 (22.0-26.0); ABG TCO2 29 (22.0-28.0)
--- NOTE | 2017-05-03 15:04 | CT ---
EXAM: CT chest without contrast HISTORY: Cough and congestion TECHNIQUE: Multi-slice transaxial helical with coronal and sagittal reformed images CONTRAST: None COMPARISON: CT chest from 11/21/2016 FINDINGS: The ascending thoracic aorta is ectatic to 35.0 mm. The aortic arch and descending thorac ic aorta have normal caliber. The left trans-subclavian dual chamber pacemaker is unchanged. The h eart is mildly enlarged. No pericardial or left pleural fluid are detected. A small right pleural effusion layers dependently. No suspicious lymphadenopathy is evident. There are focal opacities i n the right lung base. The lungs are mildly emphysematous. No pulmonary nodules or masses are appr eciated. A calcified granulomas are noted the spleen. There is suggestion of a previous partial left nephrec samir. The solid abdominal organs otherwise normal in their visualized portions of the upper abdomen . The gallbladder is present without biliary dilatation. The bones are free of suspicious osteolytic or osteoblastic lesions. No acute fractures of the righ t fifth, sixth, seventh lateral ribs. There is an old healed fracture of the left 10th anterior rib . There is an old healed sternal fracture. Chronic compression fractures are also noted and T12, T1 1, T5, T4, T3, T1, and C7. IMPRESSION: 1. Small right pleural effusion with subjacent atelectasis and/or pneumonia. 2. Acute minimally-displaced fractures of the right fifth through seventh lateral ribs. 3. Multiple additional old healed fractures involving several thoracic vertebrae and the left 10th anterior rib. Chronic C7 fracture also suggested. 4. Mild cardiomegaly. 5. Ectasia of the ascending thoracic aorta 35.0 mm. 6. Pacemaker. 7. Mild emphysema.
--- NOTE | 2017-05-03 15:04 | CT ---
EXAM: CT scan of the cervical spine without contrast HISTORY: Trauma TECHNIQUE: Imaging of the cervical spine was performed without contrast. Sagittal and coronal vik nstructions and axial images were provided for interpretation. FINDINGS: The alignment is normal. Chronic appearing superior endplate deformities are seen at the T1, T2, T3, and T4 levels. The spinous processes are intact. The occipital condyles, C1 ring appe ar intact. No acute abnormalities are seen within the odontoid process. There is a normal alignment of the facet joints. IMPRESSION: No evidence of acute fracture dislocation seen within the cervical spine.
--- NOTE | 2017-05-03 15:08 | CT ---
EXAM: CT brain without contrast HISTORY: Head trauma TECHNIQUE: Multi-slice transaxial helical with coronal and sagital reformated images COMPARISON: CT brain from 03/26/2017 FINDINGS: The midline structures are central. The ventricles are neither dilated nor displaced. M inimal low attenuation in the periventricular white matter is nonspecific but probably represents th e sequelae of chronic microvascular ischemic disease. No acute intraparenchymal or extraaxial hemorr jerrod are appreciated. Minimal debris is suggested in the right maxillary sinus. The other visible paranasal sinuses and mastoid air cells are clear. The calvarium is intact. The visible paranasal sinuses and mastoid air cells are clear. IMPRESSION: No acute intracranial process. Minimal chronic microvascular ischemic disease. Inspissated debris within the right maxillary sinus.
[2017-05-03 15:19] LABS: ALBUMIN 3.3 g/dL (3.4-5.0); ALBUMIN/GLOBULIN RATIO 0.77; ANION GAP 15.9; BILIRUBIN,TOTAL 0.27 mg/dL (0.00-1.20); BUN/CREATININE RATIO 23.15; CALCIUM 9.1 mg/dL (8.2-10.2); CREATININE 0.95 mg/dL (0.60-1.30); POTASSIUM 3.9 mmol/L (3.5-5.10); TOTAL PROTEIN 7.6 g/dL (5.8-8.1)
[2017-05-03] MEDS ORDERED: URO-JET MUCOUSMEMB STA (15:23)
[2017-05-03] MEDS ORDERED: NARCAN IVP STA (16:11)
[2017-05-03 16:14] LABS: BILIRUBIN,URINE 1+ (NEGATIVE); KETONES,URINE Negative (NEGATIVE); LEUKOCYTE ESTERASE ,URINE Negative (NEGATIVE); NITRITE,URINE Negative (NEGATIVE); PROTEIN,URINE 1+ (NEGATIVE); URINE, BLOOD Negative (NEGATIVE)
[2017-05-03 16:17] LABS: ADD URINE MICROSCOPIC YES
[2017-05-03 16:24] LABS: COCAIN SCREEN,URINE NEGATIVE (NEGATIVE)
--- NOTE | 2017-05-03 16:52 | ED.PDOC ---
General ED Provider: Dr. RANI DE LA PAZ-ER Chief Complaint: Respiratory Complaint Stated Complaint: brought in by for cough and change in mental status Time Seen by Physician: 14:15 Mode of Arrival: Wheelchair Information Source: Patient, Family Exam Limitations: Altered mental status Primary Care Provider: PHYLLIS JIMENEZ-[facility] Nursing and Triage Documentation Reviewed and Agree: Yes Respiratory Complaint Exam - Respiratory Complaint/Exam Onset/Duration: 24 hrs Symptoms Are: Still present Timing: Intermittent Initial Severity: Mild Current Severity: Mild Location: Chest Character: Reports: Non-productive cough Aggravating: Reports: URI Alleviating: Reports: None Associated Signs and Symptoms: Reports: Decreased oral intake. Denies: Rapid breathing, Dyspnea, Fever, Chills, Chest pain, Pleuritic chest pain, Wheezing, Hemoptysis, Dizziness, Calf pain, Calf swelling, Edema, URI, Nasal congestion, Hoarseness, Sinus discomfort, Vomiting, Sore throat, Weight loss, Increased thirst, Increased appetite, Increased urination Related History: Reports: Similar episode History of Healthcare-Acquired Pneumonia: No Pseudomonas Risk Factors: Reports: Chronic Lung Disease Tuberculosis Risk Factors: Reports: Chronic Resp. Faliure, Smoking Status Asthmaticus Risk Factors: Reports: None Home Oxygen Use: No Recent Stress Test: No Recent Echo/LV Function: No Current Antibiotic Use: No Current Asthma Medication Use: No Respiratory Distress: Mild Inadequate Respiratory Effort: Yes Dysphagia Present: No Stridor Present: No JVD Present: No Accessory Muscle Use: No Retractions: Not Present Diminished Breath Sounds: Yes Sinus Tenderness: None Grunting Respirations: No Kussmaul Respirations: No Differential Diagnoses: CHF, Pulmonary Edema, Pneumonia Non-Traumatic Chest Pain Syncope: EKG Performed Review of Systems - Review Of Systems Constitutional: Reports: Weakness Eyes: Reports: No symptoms Ears, Nose, Mouth, Throat: Reports: No symptoms Respiratory: Reports: Cough Cardiac: Reports: No symptoms GI: Reports: No symptoms : Reports: No symptoms Musculoskeletal: Reports: No symptoms Skin: Reports: No symptoms Neurological: Reports: No symptoms Endocrine: Reports: No symptoms Hematologic/Lymphatic: Reports: No symptoms All Other Systems: Reviewed and Negative Past Medical History - Past Medical History Previously Healthy: No Endocrine: Reports: None Cardiovascular: Reports: Hypertension Respiratory: Reports: COPD, Asthma, Pneumonia Hematological: Reports: Anemia Gastrointestinal: Reports: GERD Genitourinary: Reports: CKD Neuro/Psych: Reports: CVA, Schizophrenia Musculoskeletal: Reports: Arthritis, Other Cancer: Reports: Unknown Last Menstrual Period: menopause Other Pertinent Past Medical History: colon resection - Surgical History General Surgical History: Reports: Appendectomy, Pacemaker, Orthopedic (LEFT LEG FRACTURE,lorne in leg leg and hip SURGERY), Other (KIDNEY, COLON RESECTION, LEFT LEG) - Family History Family History: Reports: Unknown - Social History Smoking Status: Current every day smoker Hx Substance Use: No Alcohol Screening: None Lives: With family Physical Exam - Physical Exam Appearance: Well-appearing, No pain distress, Well-nourished Ill-appearing: Mild Eyes: SETH, EOMI, Conjunctiva clear ENT: Ears normal, Nose normal, Oropharynx normal Neck: Supple Respiratory: Crackles, Rhonchi Cardiovascular: RRR, Pulses normal, No rub, No murmur GI/: Soft, Nontender, No masses, Bowel sounds normal, No Organomegaly Musculoskeletal: Normal strength, ROM intact, No edema, No calf tenderness Skin: Warm, Dry, Normal color Neurological: Sensation intact Psychiatric: Affect appropriate, Mood appropriate Interpretation - Radiology Interpretation Radiology Interpretation By: Radiologist Radiology Results: Positive Exam Interpreted: CT Scan Re-Evaluation - Re-Evaluation Time of Re-Evaluation: 16:53 Status: Improved Vital Signs Stable: Yes Pain Level: 0 Appearance: NAD (0) Lungs: Other (course rhonchi) Skin: Warm and Dry Neuro: Alert and Oriented X3 CV: RRR Additional Comments: we begged ms calderón to be admitted but she absolutely refused- Critical Care Note - Critical Care Note Total Time (mins): 0 Course - Course Hematology/Chemistry: 05/03/17 14:50 05/03/17 14:50 Orders, Labs, Meds: Lab Review 05/03/17 05/03/17 05/03/17 14:29 14:50 14:59 WBC 5.47 RBC 4.19 L Hgb 12.5 Hct 37.5 MCV 89.5 MCH 29.8 MCHC 33.3 RDW Coeff of Lynda 12.8 Plt Count 151 Immature Gran % (Auto) 0.2 Neut % (Auto) 59.4 Lymph % (Auto) 30.7 [place] % (Auto) 6.9 Eos % (Auto) 2.4 Baso % (Auto) 0.4 Immature Gran # (Auto) 0.0 Neut # 3.3 Lymph # 1.7 [place] # 0.4 Eos # 0.1 Baso # 0.0 Puncture Site R rad O2 Saturation 95.0 ABG pH 7.50 H ABG pCO2 35.0 ABG pO2 66.0 L ABG HCO3 27.5 H ABG Total CO2 29 H ABG Base Excess 4 H Aaron Test + FiO2 % 21.0 Sodium 140 Potassium 3.9 Chloride 102 Carbon Dioxide 26 Anion Gap 15.9 BUN 22 H Creatinine 0.95 Estimated GFR (MDRD) 60.00 BUN/Creatinine Ratio 23.15 Glucose 88 Lactic Acid 5.9 Calcium 9.1 Total Bilirubin 0.27 AST 21 ALT 26 Alkaline Phosphatase 89 B-Natriuretic Peptide 11 Total Protein 7.6 Albumin 3.3 L Globulin 4.3 Albumin/Globulin Ratio 0.77 Procalcitonin < 0.05 Urine Color Urine Clarity Urine pH Ur Specific [place] Urine Protein Urine Glucose (UA) Urine Ketones Urine Blood Urine Nitrite Urine Bilirubin Urine Urobilinogen Ur Leukocyte Esterase Urine Microscopic RBC Urine Microscopic WBC Ur Squamous Epith Cells Urine Opiates Screen Ur Oxycodone Screen Urine Methadone Screen Ur Propoxyphene Screen Ur Barbiturates Screen U Tricyclic Antidepress Ur Phencyclidine Scrn Ur Amphetamine Screen U Methamphetamines Scrn U Benzodiazepines Scrn Urine Cocaine Screen U Cannabinoids Screen 05/03/17 16:10 WBC RBC Hgb Hct MCV MCH MCHC RDW Coeff of Lynda Plt Count Immature Gran % (Auto) Neut % (Auto) Lymph % (Auto) [place] % (Auto) Eos % (Auto) Baso % (Auto) Immature Gran # (Auto) Neut # Lymph # [place] # Eos # Baso # Puncture Site O2 Saturation ABG pH ABG pCO2 ABG pO2 ABG HCO3 ABG Total CO2 ABG Base Excess Aaron Test FiO2 % Sodium Potassium Chloride Carbon Dioxide Anion Gap BUN Creatinine Estimated GFR (MDRD) BUN/Creatinine Ratio Glucose Lactic Acid Calcium Total Bilirubin AST ALT Alkaline Phosphatase B-Natriuretic Peptide Total Protein Albumin Globulin Albumin/Globulin Ratio Procalcitonin Urine Color Yellow Urine Clarity Clear Urine pH 6.0 Ur Specific [place] >=1.030 Urine Protein 1+ Urine Glucose (UA) Negative Urine Ketones Negative Urine Blood Negative Urine Nitrite Negative Urine Bilirubin 1+ Urine Urobilinogen 1.0 Ur Leukocyte Esterase Negative Urine Microscopic RBC 0-2 Urine Microscopic WBC 0-2 Ur Squamous Epith Cells Not present Urine Opiates Screen Positive Ur Oxycodone Screen Negative Urine Methadone Screen Negative Ur Propoxyphene Screen Negative Ur Barbiturates Screen Negative U Tricyclic Antidepress Positive Ur Phencyclidine Scrn Negative Ur Amphetamine Screen Negative U Methamphetamines Scrn Negative U Benzodiazepines Scrn Positive Urine Cocaine Screen Negative U Cannabinoids Screen Positive Orders Category Date Time Status ABG DRAW REQUEST Stat CARDIO 05/03/17 14:29 Completed EKG-(ED ONLY) Stat CARDIO 05/03/17 14:29 Completed NEBULIZER TREATMENT Stat CARDIO 05/03/17 14:31 Completed ED IV/MEDIPORT/POWERPORT .ONCE EMERGENCY 05/03/17 14:30 Active [place] [ED CATHETER INSERTION AND CARE] .ONCE EMERGENCY 05/03/17 15:23 Active ABG Stat LAB 05/03/17 14:29 Completed BLOOD CULTURE Stat LAB 05/03/17 14:50 Received BNP [B-TYPE NATRIURETIC PEPTIDE] Stat LAB 05/03/17 14:59 Completed CBC W/ AUTO DIFF Stat LAB 05/03/17 14:50 Completed COMPREHENSIVE METABOLIC PANEL Stat LAB 05/03/17 14:50 Completed LACTIC ACID Stat LAB 05/03/17 14:50 Completed PROCALCITONIN Stat LAB 05/03/17 14:50 Completed URINALYSIS C & S IF INDICATED Stat LAB 05/03/17 16:10 Completed URINE DRUG SCREEN (RAPID FOR ED) [DRUG SCREEN, URINE, LAB 05/03/17 16:10 Completed RAPID] Stat 0.9 % Sodium Chloride [Saline Flush] MEDS 05/03/17 14:30 Active 1 syr IVF PRN PRN Ipratropium/Albuterol Neb [Duoneb] MEDS 05/03/17 14:31 Discontinued 1 vial NEB ONCE STA Lidocaine HCl [Uro-Jet] MEDS 05/03/17 15:23 Discontinued 10 ml [id number] ONCE STA Naloxone HCl [Narcan] MEDS 05/03/17 16:11 Discontinued 0.4 mg IVP ONCE STA Sodium Chloride 0.9% [Sodium Chloride] 1,000 ml MEDS 05/03/17 14:30 Active IV 100 mls/hr CT CERVICAL SPINE W/O CONTRAST Stat RADS 05/03/17 14:[address] CHEST W/O CONTRAST Stat RADS 05/03/17 14:[address] HEAD W/O CONTRAST Stat RADS 05/03/17 14:30 Completed Medications Generic Name Dose Route Start Last Admin Trade Name Freq PRN Reason Stop Dose Admin Sodium Chloride 1,000 mls @ 100 mls/hr 05/03/17 14:30 05/03/17 15:17 Sodium Chloride IV 05/04/17 00:29 100 mls/hr .Q10H STA Administration Sodium Chloride 1 syr 05/03/17 14:30 05/03/17 15:17 Saline Flush IVF 1 syr PRN PRN Administration To flush IV Discontinued Medications Generic Name Dose Route Start Last Admin Trade Name Freq PRN Reason Stop Dose Admin Albuterol/Ipratropium 1 vial 05/03/17 14:31 05/03/17 14:54 Duoneb NEB 05/03/17 14:32 1 vial ONCE STA Administration Lidocaine HCl 10 ml 05/03/17 15:23 05/03/17 15:26 Uro-Jet [id number] 05/03/17 15:24 Not Given ONCE STA Naloxone HCl 0.4 mg 05/03/17 16:11 05/03/17 16:23 Narcan IVP 05/03/17 16:12 0.4 mg ONCE STA Administration Vital Signs: Temp Pulse Resp BP Pulse Ox 05/03/17 14:13 97.4 F L 68 16 119/82 88 L Departure - Departure Time of Disposition: 16:54 Disposition: AMA Discharge Problem: Altered mental status Pneumonia Qualifiers: Pneumonia type: due to unspecified organism Laterality: unspecified laterality Lung location: unspecified part of lung Qualifier Code: (J18.9) Pneumonia, unspecified organism Instructions: Pneumonitis (ED) Condition: Stable Pt referred to PMD for follow-up: Yes Additional Instructions: f/u pcp--call 911 if condition worsens Allergies/Adverse Reactions: Allergies haloperidol [From Haldol] Allergy (Severe, Verified 05/03/17 14:21) swelling in mouth Pt to get medical alert necklace haloperidol lactate [From Haldol] Allergy (Severe, Verified 05/03/17 14:21) swelling in mouth Pt to get medical alert necklace olanzapine [From Zyprexa] Adverse Reaction (Severe, Verified 05/03/17 14:21) Hives oxytetracycline [From Terramycin] Adverse Reaction (Severe, Verified 05/03/17 14 :21) Hives oxytetracycline HCl [From Terramycin] Adverse Reaction (Severe, Verified 14:21) Hives Sulfa (Sulfonamide Antibiotics) Adverse Reaction (Verified 05/03/17 14:21) Home Medications: Ambulatory Orders Hydrocodone Bit/Acetaminophen [Lortab 10-500] 1 tab PO TID #1 11/02/14 Budesonide/Formoterol Fumarate [Symbicort 160-4.5 Mcg Inhaler] 2 puff IH BID Benztropine Mesylate 2 mg PO DAILY 04/20/15 Quetiapine Fumarate [Seroquel] 600 mg PO BEDTIME 10/29/16 Baclofen 20 mg PO BID 11/21/16 Citalopram Hydrobromide [Citalopram HBr] 40 mg PO BEDTIME 11/21/16 Cyclobenzaprine HCl 10 mg PO BID 11/21/16 Dicyclomine HCl 10 mg PO TID 11/21/16 Fluphenazine HCl 10 mg PO BEDTIME 11/21/16 Omeprazole [Prilosec] 20 mg PO QDAC 11/21/16 Zolpidem Tartrate [Ambien] 5 mg PO BEDTIME 11/21/16 Hydroxyzine HCl 25 mg PO BEDTIME 12/24/16 Disposition Discussed With: Patient, Family, Other (again i felt she is at great risk for harm by not being admitted but she is insistent on leaving the hospital--the also tried to convince her to stay but she would not--it must be noted she was alert and oriented at the time we tried to convince her to stay)
== END 2017-05-03 17:20 | disposition left against medical advice (07) ==
LOC: ED 14:13
DX: J18.9 Pneumonia, unspecified organism (principal); R41.82 Altered mental status, unspecified; F17.210 Nicotine dependence, cigarettes, uncomplicated; J44.9 Chronic obstructive pulmonary disease, unspecified; N18.9 Chronic kidney disease, unspecified; D63.1 Anemia in chronic kidney disease; I10 Essential (primary) hypertension; Z79.899 Other long term (current) drug therapy; Z86.73 Personal history of transient ischemic attack (TIA), and cerebral infarction without residual deficits; Z87.19 Personal history of other diseases of the digestive system
CPT/HCPCS: 36415; 80053; 80306; 81001; 82803; 83605; 83880; 84145; 85025; 87040; 93005; 93010; 94640; 96361; 96374; 99284

== ENCOUNTER 2017-05-04 08:26 | Inpatient (IN) ==
[2017-05-04 08:31] VITALS: BMI 29.9
--- NOTE | 2017-05-04 08:57 | ED.PDOC ---
General ED Provider: Dr. LESLIE HERNANDEZ Chief Complaint: Respiratory Complaint Stated Complaint: Short of air Time Seen by Physician: 08:35 Mode of Arrival: Wheelchair Information Source: Patient, Family Exam Limitations: Other (Lethargic; wakes up when prompted) [facility] Nursing and Triage Documentation Reviewed and Agree: Yes Review of Systems - Review Of Systems Constitutional: Reports: Weakness Eyes: Reports: No symptoms Ears, Nose, Mouth, Throat: Reports: No symptoms Respiratory: Reports: Cough, Short of air Cardiac: Reports: No symptoms GI: Reports: No symptoms : Reports: No symptoms Musculoskeletal: Reports: No symptoms Skin: Reports: No symptoms Neurological: Reports: Weakness Endocrine: Reports: No symptoms All Other Systems: Reviewed and Negative Past Medical History - Past Medical History Previously Healthy: No Endocrine: Reports: None Cardiovascular: Reports: Hypertension Respiratory: Reports: COPD, Asthma, Pneumonia Hematological: Reports: Anemia Gastrointestinal: Reports: GERD Genitourinary: Reports: CKD Neuro/Psych: Reports: CVA, Schizophrenia Musculoskeletal: Reports: Arthritis, Other Cancer: Reports: Unknown Last Menstrual Period: n/a Other Pertinent Past Medical History: colon resection - Surgical History General Surgical History: Reports: Appendectomy, Pacemaker, Orthopedic (LEFT LEG FRACTURE,lorne in leg leg and hip SURGERY), Other (KIDNEY, COLON RESECTION, LEFT LEG) - Family History Family History: Reports: Unknown - Social History Smoking Status: Current every day smoker Hx Substance Use: No Alcohol Screening: None Physical Exam - Physical Exam Appearance: Ill-appearing Ill-appearing: Mild Eyes: SETH, EOMI, Conjunctiva clear ENT: Nose normal, Oropharynx normal Neck: Supple Respiratory: Airway patent, Breath sounds clear, Breath sounds equal, Breath sounds diminished Cardiovascular: RRR, Pulses normal GI/: Soft, Nontender Musculoskeletal: Normal strength, ROM intact Skin: Warm, Dry, Normal color Neurological: Sensation intact, Motor intact, Alert ( with rompting) Psychiatric: Affect appropriate, Mood appropriate Interpretation - Radiology Interpretation Radiology Interpretation By: Radiologist Radiology Results: No acute changes Exam Interpreted: Portable CXR - Low Altitude [employer]ner Time of Low Altitude [employer]ner Interpretation: 08:50 Rate: Normal Rhythm: Sinus Ectopy: None - EKG Interpretation Time of EKG #1: 09:04 Rate: Normal Rhythm: Sinus Ectopy: None [place]: [place] ST Segment: Normal Critical Care Note - Critical Care Note Total Time (mins): 35 Course - Course Hematology/Chemistry: 05/04/17 09:00 05/04/17 09:00 Orders, Labs, Meds: Lab Review 05/04/17 05/04/17 09:00 09:05 WBC 7.47 RBC 4.19 L Hgb 12.5 Hct 37.3 MCV 89.0 MCH 29.8 MCHC 33.5 RDW Coeff of Lynda 12.9 Plt Count 146 Immature Gran % (Auto) 0.3 Neut % (Auto) 69.5 Lymph % (Auto) 21.6 [place] % (Auto) 7.0 Eos % (Auto) 1.3 Baso % (Auto) 0.3 Immature Gran # (Auto) 0.0 Neut # 5.2 Lymph # 1.6 [place] # 0.5 Eos # 0.1 Baso # 0.0 Puncture Site R rad O2 Saturation 87.0 L ABG pH 7.410 ABG pCO2 44.9 ABG pO2 53.0 L* ABG HCO3 28.5 H ABG Total CO2 30 H ABG Base Excess 4 H Aaron Test + FiO2 % 21.0 Sodium 139 Potassium 3.9 Chloride 101 Carbon Dioxide 26 Anion Gap 15.9 BUN 17 Creatinine 0.85 Estimated GFR (MDRD) 68.00 BUN/Creatinine Ratio 20.00 Glucose 118 H Calcium 9.2 Total Bilirubin 0.44 AST 19 ALT 22 Alkaline Phosphatase 87 Troponin I < 0.0100 Total Protein 7.6 Albumin 3.3 L Globulin 4.3 Albumin/Globulin Ratio 0.77 Orders Category Date Time Status ADMIT PATIENT INPATIENT .TO [facility] (MONITORED BED) ADMISSION 05/04/17 10: 04 Active ABG DRAW REQUEST Stat CARDIO 05/04/17 08:56 Completed EKG-(IP & OP ONLY) Stat CARDIO 05/04/17 08:50 Completed OXYGEN Routine CARDIO 05/04/17 10:05 Ordered ACTIVITY .BR with BRP CARE 05/04/17 10:04 Active INTAKE & OUTPUT Q8HR CARE 05/04/17 10:04 Active TELEMETRY MONITORING TELE CARE 05/04/17 10:10 Active VITAL SIGNS Q8HR CARE 05/04/17 10:04 Active REGULAR DIET DIETARY 05/04/17 Lunch Ordered ABG Stat LAB 05/04/17 09:05 Completed CBC W/ AUTO DIFF DAILY@0600 LAB 05/05/17 06:00 Ordered CBC W/ AUTO DIFF DAILY@0600 LAB 05/06/17 06:00 Ordered CBC W/ AUTO DIFF DAILY@0600 LAB 05/07/17 06:00 Ordered CBC W/ AUTO DIFF DAILY@0600 LAB 05/08/17 06:00 Ordered CBC W/ AUTO DIFF DAILY@0600 LAB 05/09/17 06:00 Ordered CBC W/ AUTO DIFF DAILY@0600 LAB 05/10/17 06:00 Ordered CBC W/ AUTO DIFF DAILY@0600 LAB 05/11/17 06:00 Ordered CBC W/ AUTO DIFF DAILY@0600 LAB 05/12/17 06:00 Ordered CBC W/ AUTO DIFF DAILY@0600 LAB 05/13/17 06:00 Ordered CBC W/ AUTO DIFF DAILY@0600 LAB 05/14/17 06:00 Ordered CBC W/ AUTO DIFF DAILY@0600 LAB 05/15/17 06:00 Ordered CBC W/ AUTO DIFF DAILY@0600 LAB 05/16/17 06:00 Ordered CBC W/ AUTO DIFF DAILY@0600 LAB 05/17/17 06:00 Ordered CBC W/ AUTO DIFF DAILY@0600 LAB 05/18/17 06:00 Ordered CBC W/ AUTO DIFF DAILY@0600 LAB 05/19/17 06:00 Ordered CBC W/ AUTO DIFF DAILY@0600 LAB 05/20/17 06:00 Ordered CBC W/ AUTO DIFF DAILY@0600 LAB 05/21/17 06:00 Ordered CBC W/ AUTO DIFF DAILY@0600 LAB 05/22/17 06:00 Ordered CBC W/ AUTO DIFF DAILY@0600 LAB 05/23/17 06:00 Ordered CBC W/ AUTO DIFF DAILY@0600 LAB 05/24/17 06:00 Ordered CBC W/ AUTO DIFF Stat LAB 05/04/17 09:00 Completed COMPREHENSIVE METABOLIC PANEL DAILY@0600 LAB 05/05/17 06:00 Ordered COMPREHENSIVE METABOLIC PANEL DAILY@0600 LAB 05/06/17 06:00 Ordered COMPREHENSIVE METABOLIC PANEL DAILY@0600 LAB 05/07/17 06:00 Ordered COMPREHENSIVE METABOLIC PANEL DAILY@0600 LAB 05/08/17 06:00 Ordered COMPREHENSIVE METABOLIC PANEL DAILY@0600 LAB 05/09/17 06:00 Ordered COMPREHENSIVE METABOLIC PANEL DAILY@0600 LAB 05/10/17 06:00 Ordered COMPREHENSIVE METABOLIC PANEL DAILY@0600 LAB 05/11/17 06:00 Ordered COMPREHENSIVE METABOLIC PANEL DAILY@0600 LAB 05/12/17 06:00 Ordered COMPREHENSIVE METABOLIC PANEL DAILY@0600 LAB 05/13/17 06:00 Ordered COMPREHENSIVE METABOLIC PANEL DAILY@0600 LAB 05/14/17 06:00 Ordered COMPREHENSIVE METABOLIC PANEL DAILY@0600 LAB 05/15/17 06:00 Ordered COMPREHENSIVE METABOLIC PANEL DAILY@0600 LAB 05/16/17 06:00 Ordered COMPREHENSIVE METABOLIC PANEL DAILY@0600 LAB 05/17/17 06:00 Ordered COMPREHENSIVE METABOLIC PANEL DAILY@0600 LAB 05/18/17 06:00 Ordered COMPREHENSIVE METABOLIC PANEL DAILY@0600 LAB 05/19/17 06:00 Ordered COMPREHENSIVE METABOLIC PANEL DAILY@0600 LAB 05/20/17 06:00 Ordered COMPREHENSIVE METABOLIC PANEL DAILY@0600 LAB 05/21/17 06:00 Ordered COMPREHENSIVE METABOLIC PANEL DAILY@0600 LAB 05/22/17 06:00 Ordered COMPREHENSIVE METABOLIC PANEL DAILY@0600 LAB 05/23/17 06:00 Ordered COMPREHENSIVE METABOLIC PANEL DAILY@0600 LAB 05/24/17 06:00 Ordered COMPREHENSIVE METABOLIC PANEL Stat LAB 05/04/17 09:00 Completed TROPONIN I Stat LAB 05/04/17 09:00 Completed Albuterol Sulfate 0.083% Neb [Albuterol 0.083% Neb] MEDS 05/04/17 10:11 Active 1 vial NEB Q4-6H PRN Baclofen [Baclofen] MEDS 05/04/17 21:00 Ordered 20 mg PO BID Benztropine Mesylate [Benztropine Mesylate] MEDS 05/04/17 10:15 Ordered 2 mg PO DAILY Budesonide/Formoterol Fumarate [Symbicort 160-4.5 Mcg MEDS 05/04/17 10:30 Ordered Inhaler] 2 puff IH BID Ceftriaxone Sodium [Rocephin] 1 gm MEDS 05/04/17 10:30 Active 0.9 % Sodium Chloride [Sodium Chloride] 50 ml IV DAILY Citalopram Hydrobromide [Citalopram HBr] MEDS 05/04/17 10:15 Ordered 40 mg PO BEDTIME Cyclobenzaprine HCl [Flexeril] MEDS 05/04/17 10:30 Ordered 10 mg PO BID Dicyclomine HCl [Bentyl] MEDS 05/04/17 10:30 Ordered 10 mg PO TID Enoxaparin Sodium [Lovenox] MEDS 05/04/17 10:30 Active 40 mg SUBCUT DAILY Ferrous Sulfate [Ferrous Sulfate] MEDS 05/04/17 10:15 Ordered 325 mg PO BID Fluphenazine HCl [Fluphenazine HCl] MEDS 05/04/17 21:00 Ordered 10 mg PO BEDTIME Gabapentin [Neurontin] MEDS 05/04/17 10:30 Ordered 300 mg PO TID Hydrocodone Bit/Acetaminophen MEDS 05/04/17 10:15 Ordered 1 tab PO TID Hydroxyzine HCl [Atarax] MEDS 05/04/17 21:00 Ordered 25 mg PO BEDTIME Lisinopril [Zestril] MEDS 05/04/17 10:30 Ordered 40 mg PO DAILY Metoprolol Tartrate [Lopressor] MEDS 05/04/17 10:30 Ordered 50 mg PO BID Omeprazole [Prilosec] MEDS 05/04/17 10:30 Ordered 20 mg PO QDAC Quetiapine Fumarate [Seroquel] MEDS 05/04/17 21:00 Ordered 600 mg PO BEDTIME Sodium Chloride 0.9% [Sodium Chloride] 1,000 ml MEDS 05/04/17 10:30 Active IV 75 mls/hr Zolpidem Tartrate [Ambien] MEDS 05/04/17 21:00 Ordered 5 mg PO BEDTIME RESUSCITATION STATUS Routine OTHERS 05/04/17 10:04 Ordered CHEST, 1V AP ONLY Stat RADS 05/04/17 08:50 Completed Medications Generic Name Dose Route Start Last Admin Trade Name Freq PRN Reason Stop Dose Admin Albuterol Sulfate 1 vial 05/04/17 10:11 Albuterol 0.083% Neb NEB Q4-6H PRN Wheezing Budesonide/Formoterol Fumarate 2 puff 05/04/17 10:30 Symbicort 160-4.5 Mcg Inhaler IH BID FAUSTINO Cyclobenzaprine HCl 10 mg 05/04/17 10:30 Flexeril PO BID FAUSTINO Dicyclomine HCl 10 mg 05/04/17 10:30 Bentyl PO TID FAUSTINO Enoxaparin Sodium 40 mg 05/04/17 10:30 Lovenox SUBCUT DAILY FAUSTINO Gabapentin 300 mg 05/04/17 10:30 Neurontin PO TID FAUSTINO Hydroxyzine HCl 25 mg 05/04/17 21:00 Atarax PO BEDTIME FAUSTINO Ceftriaxone Sodium 1 gm/ 50 mls @ 75 mls/hr 05/04/17 10:30 Sodium Chloride IV DAILY [facility] Sodium Chloride 1,000 mls @ 75 mls/hr 05/04/17 10:30 Sodium Chloride IV .[id number] [facility] Lisinopril 40 mg 05/04/17 10:30 Zestril PO DAILY [facility] Metoprolol Tartrate 50 mg 05/04/17 10:30 Lopressor PO BID [facility] Non-Formulary Medication 20 mg 05/04/17 21:00 Baclofen [Baclofen] PO BID [place]USTINO Non-Formulary Medication 2 mg 05/04/17 10:15 Benztropine Mesylate [Benztropine Mesylate] PO DAILY [facility] Non-Formulary Medication 40 mg 05/04/17 10:15 Citalopram Hydrobromide [Citalopram Hbr] PO BEDTIME [facility] Non-Formulary Medication 325 mg 05/04/17 10:15 Ferrous Sulfate [Ferrous Sulfate] PO BID [facility] Non-Formulary Medication 10 mg 05/04/17 21:00 Fluphenazine Hcl [Fluphenazine Hcl] PO BEDTIME [facility] Non-Formulary Medication 1 tab 05/04/17 10:15 Hydrocodone Bit/Acetaminophen PO TID [facility] Non-Formulary Medication 600 mg 05/04/17 21:00 Quetiapine Fumarate [Seroquel] PO BEDTIME [facility] Omeprazole 20 mg 05/04/17 10:30 Prilosec PO QDAC [facility] Zolpidem Tartrate 5 mg 05/04/17 21:00 Ambien PO BEDTIME [facility] Vital Signs: Temp Pulse Resp BP Pulse Ox 05/04/17 08:27 97.0 F L 86 20 107/70 84 L Departure - Departure Time of Disposition: 10:19 Disposition: ADMITTED INPATIENT Discharge Problem: Respiratory failure Qualifiers: Chronicity: acute Respiratory failure complication: hypoxia and hypercapnia Qualifier Code: (J96.01) Acute respiratory failure with hypoxia Condition: Stable Pt referred to PMD for follow-up: Yes Allergies/Adverse Reactions: Allergies haloperidol [From Haldol] Allergy (Severe, Verified 05/04/17 09:04) swelling in mouth Pt to get medical alert necklace haloperidol lactate [From Haldol] Allergy (Severe, Verified 05/04/17 09:04) swelling in mouth Pt to get medical alert necklace olanzapine [From Zyprexa] Adverse Reaction (Severe, Verified 05/04/17 09:04) Hives oxytetracycline [From Terramycin] Adverse Reaction (Severe, Verified 05/04/17 09 :04) Hives oxytetracycline HCl [From Terramycin] Adverse Reaction (Severe, Verified 09:04) Hives Sulfa (Sulfonamide Antibiotics) Adverse Reaction (Verified 05/04/17 09:04) Home Medications: Ambulatory Orders Hydrocodone Bit/Acetaminophen [Lortab 10-500] 1 tab PO TID #1 11/02/14 Budesonide/Formoterol Fumarate [Symbicort 160-4.5 Mcg Inhaler] 2 puff IH BID Benztropine Mesylate 2 mg PO DAILY 04/20/15 Quetiapine Fumarate [Seroquel] 600 mg PO BEDTIME 10/29/16 Baclofen 20 mg PO BID 11/21/16 Citalopram Hydrobromide [Citalopram HBr] 40 mg PO BEDTIME 11/21/16 Cyclobenzaprine HCl 10 mg PO BID 11/21/16 Dicyclomine HCl 10 mg PO TID 11/21/16 Fluphenazine HCl 10 mg PO BEDTIME 11/21/16 Omeprazole [Prilosec] 20 mg PO QDAC 11/21/16 Zolpidem Tartrate [Ambien] 5 mg PO BEDTIME 11/21/16 Hydroxyzine HCl 25 mg PO BEDTIME 12/24/16
[2017-05-04 09:08] LABS: BASOPHILS % (AUTO) 0.3 % (0.0-3.0); EOSINOPHILS # (AUTO) 0.1 K/ul (0.0-0.7); EOSINOPHILS % (AUTO) 1.3 % (0.0-7.0); HEMATOCRIT 37.3 % (37.0-47.0); HEMOGLOBIN 12.5 g/dl (12.0-16.0); IMMATURE GRANULOCYTE % (AUTO) 0.3 % (0.0-5.0); LYMPHOCYTES # (AUTO) 1.6 K/uL (0.60-3.4); LYMPHOCYTES % (AUTO) 21.6 (10.0-50.0); MEAN CORPUSCULAR HEMOGLOBIN 29.8 pg (27.0-31.0); MEAN CORPUSCULAR HGB CONC 33.5 (31.8-35.4); MONOCYTES # (AUTO) 0.5 K/uL (0.4-2.0); NEUTROPHILS # (AUTO) 5.2 K/ul (2.0-6.9); NEUTROPHILS % (AUTO) 69.5; PLATELET COUNT 146 10^3/uL (140-440); RED BLOOD COUNT 4.19 10^6/ul (4.20-5.40); WHITE BLOOD COUNT 7.47 K/ul (4.6-10.2)
[2017-05-04 09:16] LABS: ABG PCO2 44.9 mmHg (35-45)
[2017-05-04 09:18] LABS: ABG BASE EXCESS 4 (-2.0-2.0); ABG HCO3 28.5 (22.0-26.0); ABG TCO2 30 (22.0-28.0)
--- NOTE | 2017-05-04 09:35 | DI ---
EXAM: One-view chest HISTORY: Shortness of breath TECHNIQUE: Single frontal view the chest was obtained. Comparison 07/07/2016. FINDINGS: The heart is normal size. Lungs are clear. The pulmonary vasculature appears normal. T here is stable appearance of the pacemaker. IMPRESSION: No active cardiopulmonary disease.
[2017-05-04 09:37] LABS: ALANINE AMINOTRANSFERASE 22 U/L (12-78); ALBUMIN 3.3 g/dL (3.4-5.0); ALBUMIN/GLOBULIN RATIO 0.77; ALKALINE PHOSPHATASE 87 U/L (53-141); ANION GAP 15.9; ASPARTATE AMINO TRANSFERASE 19 U/L (15-37); BILIRUBIN,TOTAL 0.44 mg/dL (0.00-1.20); BLOOD UREA NITROGEN 17 mg/dL (7-18); CALCIUM 9.2 mg/dL (8.2-10.2); CARBON DIOXIDE 26 mmol/L (23-31); CHLORIDE 101 mmol/L (98-107); CREATININE 0.85 mg/dL (0.60-1.30); GLUCOSE 118 mg/dL (82-115); POTASSIUM 3.9 mmol/L (3.5-5.10); SODIUM 139 mmol/L (136-145); TOTAL PROTEIN 7.6 g/dL (5.8-8.1)
[2017-05-04] MEDS ORDERED: ALBUTEROL 0.083% NEB NEB PRN (10:11)
[2017-05-04] MEDS ORDERED: BENZTROPINE MESYLATE 2 MG PO SCH (10:15)
[2017-05-04] MEDS ORDERED: NON-FORMULARY MEDICATION (Hydrocodone Bit/Acetaminophen 1 TAB) PO SCH (10:15)
[2017-05-04] MEDS ORDERED: NON-FORMULARY MEDICATION (Citalopram Hydrobromide [Citalopram Hbr] 40 MG) PO SCH ×22 (10:15)
[2017-05-04] MEDS ORDERED: NON-FORMULARY MEDICATION (Ferrous Sulfate [Ferrous Sulfate] 325 MG) PO SCH ×22 (10:15)
[2017-05-04] MEDS ORDERED: ZOFRAN 4 MG/2 ML IVP PRN (12:52)
[2017-05-04] MEDS: LOVENOX SUBCUT SCH (12:59)
[2017-05-04] MEDS: FLEXERIL PO SCH ×2 (13:00→20:51)
[2017-05-04] MEDS: BENTYL PO SCH ×3 (13:00→20:50)
[2017-05-04] MEDS: NEURONTIN PO SCH ×3 (13:00→20:50)
[2017-05-04] MEDS: FERROUS SULFATE PO SCH ×2 (13:00→20:51)
[2017-05-04] MEDS: PRILOSEC PO SCH (13:00)
[2017-05-04] MEDS: LOPRESSOR PO SCH ×2 (13:00→20:52)
[2017-05-04] MEDS: ROCEPHIN 1 GM in SODIUM CHLORIDE 50 ML IV SCH (13:01)
[2017-05-04] MEDS: COGENTIN PO SCH (13:01)
[2017-05-04] MEDS: ZESTRIL PO SCH (13:01)
[2017-05-04] MEDS: SODIUM CHLORIDE 1,000 ML IV SCH (13:02)
[2017-05-04] MEDS: SYMBICORT 160-4.5 MCG INHALER IH SCH ×2 (13:03→20:47)
[2017-05-04] MEDS: SOLU-MEDROL 125 MG IVP SCH ×2 (13:37→20:53)
[2017-05-04] MEDS: MORPHINE 2 MG/ML SYRINGE IVP PRN ×2 (13:38→19:44)
[2017-05-04] MEDS: NORCO 10-325 PO SCH ×2 (16:07→20:52)
[2017-05-04] MEDS: DUONEB NEB SCH ×2 (17:43→23:00)
[2017-05-04] MEDS: ATARAX PO SCH (20:51)
[2017-05-04] MEDS: BACLOFEN PO SCH (20:51)
[2017-05-04] MEDS: CELEXA PO SCH (20:51)
[2017-05-04] MEDS: SEROQUEL PO SCH (20:52)
[2017-05-04] MEDS: MUCINEX PO SCH (20:52)
[2017-05-04] MEDS: AMBIEN PO SCH (20:52)
[2017-05-04] MEDS: FLUPHENAZINE HCL 10 MG PO SCH (20:53)
[2017-05-04] MEDS ORDERED: NON-FORMULARY MEDICATION (Baclofen [Baclofen] 20 MG) PO SCH (21:00)
[2017-05-04] MEDS ORDERED: NON-FORMULARY MEDICATION (Quetiapine Fumarate [Seroquel] 600 MG) PO SCH (21:00)
[2017-05-05] MEDS: SODIUM CHLORIDE 1,000 ML IV SCH ×3 (02:10→17:30)
[2017-05-05] MEDS: MORPHINE 2 MG/ML SYRINGE IVP PRN (02:28)
[2017-05-05] MEDS: SOLU-MEDROL 125 MG IVP SCH ×3 (04:56→21:40)
[2017-05-05] MEDS: DUONEB NEB SCH ×4 (04:59→23:13)
[2017-05-05 05:39] LABS: BASOPHILS % (AUTO) 0.2 % (0.0-3.0); HEMATOCRIT 35.6 % (37.0-47.0); HEMOGLOBIN 12.2 g/dl (12.0-16.0); IMMATURE GRANULOCYTE % (AUTO) 0.3 % (0.0-5.0); LYMPHOCYTES # (AUTO) 0.8 K/uL (0.60-3.4); LYMPHOCYTES % (AUTO) 12.8 (10.0-50.0); MEAN CORPUSCULAR HEMOGLOBIN 30.3 pg (27.0-31.0); MEAN CORPUSCULAR HGB CONC 34.3 (31.8-35.4); MEAN CORPUSCULAR VOLUME 88.3 fl (81.0-99.0); MONOCYTES # (AUTO) 0.1 K/uL (0.4-2.0); NEUTROPHILS % (AUTO) 85.7; PLATELET COUNT 149 10^3/uL (140-440); RED BLOOD COUNT 4.03 10^6/ul (4.20-5.40); WHITE BLOOD COUNT 5.85 K/ul (4.6-10.2)
[2017-05-05] MEDS: PRILOSEC PO SCH (05:41)
[2017-05-05 05:56] LABS: ALBUMIN 3.2 g/dL (3.4-5.0); ALBUMIN/GLOBULIN RATIO 0.74; ANION GAP 18.2; BILIRUBIN,TOTAL 0.24 mg/dL (0.00-1.20); BUN/CREATININE RATIO 25.92; CALCIUM 8.8 mg/dL (8.2-10.2); CREATININE 0.81 mg/dL (0.60-1.30); POTASSIUM 4.2 mmol/L (3.5-5.10); TOTAL PROTEIN 7.5 g/dL (5.8-8.1)
[2017-05-05] MEDS: BACLOFEN PO SCH ×2 (09:04→21:21)
[2017-05-05] MEDS: FLEXERIL PO SCH ×2 (09:04→21:22)
[2017-05-05] MEDS: NORCO 10-325 PO SCH ×3 (09:05→21:36)
[2017-05-05] MEDS: ZESTRIL PO SCH (09:05)
[2017-05-05] MEDS: FERROUS SULFATE PO SCH ×2 (09:05→21:22)
[2017-05-05] MEDS: MUCINEX PO SCH ×2 (09:05→21:22)
[2017-05-05] MEDS: BENTYL PO SCH ×3 (09:05→21:22)
[2017-05-05] MEDS: COGENTIN PO SCH (09:05)
[2017-05-05] MEDS: LOPRESSOR PO SCH ×2 (09:06→21:22)
[2017-05-05] MEDS: LOVENOX SUBCUT SCH (09:06)
[2017-05-05] MEDS: NEURONTIN PO SCH ×3 (09:06→21:24)
[2017-05-05] MEDS: ROCEPHIN 1 GM in SODIUM CHLORIDE 50 ML IV SCH (09:08)
[2017-05-05] MEDS: SYMBICORT 160-4.5 MCG INHALER IH SCH ×2 (09:08→21:28)
--- NOTE | 2017-05-05 11:01 | PCM.PROG ---
Attending Provider: ATTENDING PROVIDER: [facility] DATE OF SERVICE: 05/05/17 SUBJECTIVE: This 61 year old WHITE/ F was hospitalized 05/04/17. The patient is admitted with COPD exacerbation secondary to bronchitis and hypoxemia. The patient is still coughing, getting thick phlegm and is short of breath with minimal exertion. No fever no chills. The patient's family is in the room and she is wanting to go home. The came and is talking with her. REVIEW OF SYSTEMS: CONSTITUTIONAL: No fever, no chills. ENDOCRINE: No weight loss or weight gain. HEENT: No sinus drainage, no sore throat. CVS: No angina symptoms. No CHF symptoms. No palpitations. No atypical chest pain for CAD. Shortness of breath with minimal exertion. RESPIRATORY: Cough, productive. No hemoptysis. GI: No melena. No abdominal pain. No nausea, no vomiting. : No hematuria. No polyuria. SKIN: No rash. No wounds. MUSCULOSKELETAL: No pain. DIGESTER OPERATOR HELPER: No blackout, no dizziness. No headache. No double vision. PSYCHIATRIC: Not anxious; no depression. No suicidal thoughts. No homicidal thoughts. PHYSICAL EXAMINATION: GENERAL: Lying in bed in no distress. VITAL SIGNS: Temperature 97.7 F, Pulse 77, Respiratory Rate 19, BP 148/79, Pulse Ox 93% HEENT: Normocephalic, atraumatic. Mucosa is dry, pallor positive. No scleral icterus. NECK: No JVP, no carotid bruit. No lymphadenopathy. CARDIAC: S1, S2, no S3. No murmur, gallop or regurgitation. LUNGS: Clear to auscultation. ABDOMEN: Soft, non-tender. Bowel sounds active. No rigidity, guarding or CVA tenderness. EXTREMITIES: No clubbing, cyanosis or edema. NEUROLOGIC: Awake, alert and oriented x3. LYMPHATIC: No palpable lymph nodes SKIN: Not dry. Intact. MUSCULOSKELETAL: No joint swelling. LAB REVIEW: 05/05/17 05:37 05/05/17 05:37 05/05/17 05:37: WBC 5.85, RBC 4.03 L, Hgb 12.2, Hct 35.6 L, MCV 88.3, MCH 30.3, MCHC 34.3, RDW Coeff of Lynda 12.4, Plt Count 149, Immature Gran % (Auto) 0.3, Neut % (Auto) 85.7, Lymph % (Auto) 12.8, [place] % (Auto) 1.0, Eos % (Auto) 0.0, Baso % (Auto) 0.2, Immature Gran # (Auto) 0.0, Neut # 5.0, Lymph # 0.8, [place] # 0.1 L, Eos # 0.0, Baso # 0.0, Sodium 140, Potassium 4.2, Chloride 102, Carbon Dioxide 24, Anion Gap 18.2, BUN 21 H, Creatinine 0.81, Estimated GFR (MDRD) 72.00, BUN/Creatinine Ratio 25.92, Glucose 138 H, Calcium 8.8, Total Bilirubin 0.24, AST 18, ALT 18, Alkaline Phosphatase 81, Total Protein 7.5, Albumin 3.2 L , Globulin 4.3, Albumin/Globulin Ratio 0.74 ASSESSMENT: 1. COPD exacebation secondary to bronchitis. 2. Hypoxemia secondary to COPD exacerbation. 3. Depression. 4. DJD spine. 5. Substance abuse 6. Hypertension PLAN: 1. Continue Rocephin, Solu-Medrol and Duonebs 2. Daily I & O's 3. Out of bed to chair as the patient tolerates Plan and coordination of the patient's care discussed in the presence of Sandblast Operator and nurse. CONDITION: Stable SCRIBED BY: ELDON FRIAS [facility] Home Mother scribed while in presence of service performed by Dr. PHYLLIS JIMENEZ-[facility] on 05/05/17 ([id number])
[2017-05-05] MEDS: ATARAX PO SCH (21:21)
[2017-05-05] MEDS: CELEXA PO SCH (21:21)
[2017-05-05] MEDS: SEROQUEL PO SCH (21:26)
[2017-05-05] MEDS: FLUPHENAZINE HCL 10 MG PO SCH (21:33)
[2017-05-05] MEDS: AMBIEN PO SCH (21:35)
[2017-05-06 04:48] LABS: BASOPHILS % (AUTO) 0.1 % (0.0-3.0); HEMATOCRIT 34.1 % (37.0-47.0); HEMOGLOBIN 11.4 g/dl (12.0-16.0); IMMATURE GRANULOCYTE % (AUTO) 0.5 % (0.0-5.0); LYMPHOCYTES # (AUTO) 0.6 K/uL (0.60-3.4); LYMPHOCYTES % (AUTO) 4.5 (10.0-50.0); MEAN CORPUSCULAR HEMOGLOBIN 29.5 pg (27.0-31.0); MEAN CORPUSCULAR HGB CONC 33.4 (31.8-35.4); MEAN CORPUSCULAR VOLUME 88.3 fl (81.0-99.0); MONOCYTES # (AUTO) 0.2 K/uL (0.4-2.0); MONOCYTES % (AUTO) 1.3 (0-10); NEUTROPHILS # (AUTO) 12.4 K/ul (2.0-6.9); NEUTROPHILS % (AUTO) 93.6; PLATELET COUNT 159 10^3/uL (140-440); RED BLOOD COUNT 3.86 10^6/ul (4.20-5.40); WHITE BLOOD COUNT 13.28 K/ul (4.6-10.2)
[2017-05-06] MEDS: DUONEB NEB SCH (04:57)
[2017-05-06 05:09] LABS: ALBUMIN/GLOBULIN RATIO 0.79; ANION GAP 17.1; BILIRUBIN,TOTAL 0.19 mg/dL (0.00-1.20); BUN/CREATININE RATIO 27.16; CALCIUM 8.7 mg/dL (8.2-10.2); CREATININE 0.81 mg/dL (0.60-1.30); POTASSIUM 4.1 mmol/L (3.5-5.10); TOTAL PROTEIN 6.8 g/dL (5.8-8.1)
[2017-05-06 05:12] VITALS: BP 150/72; TEMP 97.2
[2017-05-06] MEDS: SOLU-MEDROL 125 MG IVP SCH (05:26)
[2017-05-06] MEDS: PRILOSEC PO SCH (05:41)
--- NOTE | 2017-05-18 15:02 | DS ---
DATE OF SERVICE: 05/06/17 FINAL DIAGNOSIS: 1. CHRONIC OBSTRUCTIVE PULMONARY DISEASE EXACERBATION SECONDARY TO BRONCHITIS WITH HYPOXEMIA 2. HISTORY OF HYPERTENSION 3. DYSLIPIDEMIA 4. OSTEOARTHRITIS 5. DJD OF THE SPINE 6. SUBSTANCE USE 7. DEPRESSION 8. BIPOLAR 9. PERMANENT PACEMAKER 10. HISTORY OF SEIZURE DISORDER, NONE SINCE 2011 11. APPENDECTOMY 12. STATUS POST LEFT HALF NEPHRECTOMY 13. PARTIAL COLECTOMY FOR THE ULCERATIVE COLITIS IN 2009 PLAN: 1. Discharge the patient home. 2. Follow up in the [facility] in one week on 05/12/2017. 3. Medication-New prescription of Clindamycin 500 mg p.o. twice daily for 7 days and Medrol dose pack, Albuterol nebulizer. 4. Continue using the C-PAP at home at night time. 5. Diet-cardiac and healthy. 6. Activity as much as tolerated. 7. Continue the rest of the home medications; Baclofen 20 mg p.o. twice daily Benztropine 2 mg p.o. daily Symbicort two puffs twice daily Citalopram 40 mg at bedtime Cyclobenzaprine 10 mg twice daily Dicyclomine 10 mg three times daily Ferrous sulfate 325 mg twice daily Fluphenazine 10 mg at bedtime Gabapentin 300 mg p.o. three times daily Hydrocodone one tablet p.o. three times daily Hydroxyzine 25 mg tablet at bedtime Lisinopril 40 mg tablet daily Metoprolol 50 mg p.o. twice daily Prilosec 20 mg p.o. daily Seroquel 600 mg p.o. at bedtime Ambien 5 mg at bedtime DISEASE SPECIFIC EDUCATION: About the COPD and the risk of pneumonia. Advised to get the pneumonia vaccination. HOSPITAL COURSE: The patient came to the emergency room with shortness of breath, coughing, congestion and was seen by Dr. Abernathy in the emergency room. ABG's showed the pH of 7.410, PO2 53. Chest x-ray showed negative for any infection. BUN and creatinine was now normal. After treatment with the breathing treatment, the patient was still having problems with the coughing and shortness of breath and wheezing. The patient was admitted to the hospital for the same reason with the hypoxemia and COPD exacerbation. The patient was started on the breathing treatments, DuoNebs and Solu-Medrol and Mucinex was given. IV fluids at 50 ml per hour. With the given treatment, she started feeling better. Rocephin was also given. She was up and about and walking. Less short of breath. Saturations were above 94 at 2 liters. At that time, the patient was discharged to home. Time spent on the patient is more than 60 minutes today. LUISD
== END 2017-05-06 09:30 | disposition home or self-care (01) | DRG 202 ==
LOC: ED 08:26 → SCU 10:16
PROVIDERS: ADMIT Emergency Medicine; ATTEND Emergency Medicine
DX: J20.9 Acute bronchitis, unspecified (principal); J96.01 Acute respiratory failure with hypoxia; J44.1 Chronic obstructive pulmonary disease with (acute) exacerbation; I10 Essential (primary) hypertension; E78.5 Hyperlipidemia, unspecified; M19.90 Unspecified osteoarthritis, unspecified site; M47.9 Spondylosis, unspecified; F19.90 Other psychoactive substance use, unspecified, uncomplicated; F31.9 Bipolar disorder, unspecified; F17.200 Nicotine dependence, unspecified, uncomplicated; R53.83 Other fatigue; R05 Cough; Z79.899 Other long term (current) drug therapy; Z95.0 Presence of cardiac pacemaker; Z86.69 Personal history of other diseases of the nervous system and sense organs
CPT/HCPCS: 36415; 80053; 82803; 84484; 85025; 93005; 93010; 94640; 99284

== ENCOUNTER 2017-06-01 13:37 | Outpatient (CLI) ==
--- NOTE | 2017-06-01 14:59 | DI ---
Exam: Right ankle three-view. HISTORY: Right ankle pain. Findings: Three images of the right ankle are submitted. These demonstrate a diffusely osteopenic patient with no acute fracture or dislocation. There is no osseous erosion or radiodense foreign bod y. There is no focal soft tissue swelling. Impressions: Diffuse osteopenia with no acute fracture or dislocation identified in the right ankle .
== END 2017-06-01 13:38 | disposition home or self-care (01) ==
LOC: RAD 13:37
PROVIDERS: ATTEND Emergency Medicine
DX: M25.571 Pain in right ankle and joints of right foot (principal)

== ENCOUNTER 2017-07-10 13:55 | Outpatient (CLI) ==
--- NOTE | 2017-07-10 15:26 | DEXA ---
EXAM: Bone densitometry. History: Age related osteoporosis. Findings: Evaluation of the lumbar spine reveals a total bone mineral density of 0.854 grams per centimeter squ ared with T-score of negative 2.7. Evaluation of the right hip reveals a total bone mineral density of 0.598 grams per centimeter square d with T-score of negative 3.3 Impression: Osteoporosis of the lumbar spine and right hip
== END 2017-07-10 13:56 | disposition home or self-care (01) ==
LOC: RAD 13:55
PROVIDERS: ATTEND Emergency Medicine
DX: M81.0 Age-related osteoporosis without current pathological fracture (principal)

== ENCOUNTER 2017-07-13 13:11 | Outpatient (CLI) ==
[2017-07-13 13:52] LABS: BASOPHILS % (AUTO) 0.7 % (0.0-3.0); EOSINOPHILS # (AUTO) 0.1 K/ul (0.0-0.7); EOSINOPHILS % (AUTO) 2.1 % (0.0-7.0); HEMATOCRIT 35.5 % (37.0-47.0); HEMOGLOBIN 12.2 g/dl (12.0-16.0); IMMATURE GRANULOCYTE % (AUTO) 0.2 % (0.0-5.0); LYMPHOCYTES # (AUTO) 1.6 K/uL (0.60-3.4); LYMPHOCYTES % (AUTO) 36.8 (10.0-50.0); MEAN CORPUSCULAR HEMOGLOBIN 30.3 pg (27.0-31.0); MEAN CORPUSCULAR HGB CONC 34.4 (31.8-35.4); MEAN CORPUSCULAR VOLUME 88.1 fl (81.0-99.0); MONOCYTES # (AUTO) 0.3 K/uL (0.4-2.0); MONOCYTES % (AUTO) 5.9 (0-10); NEUTROPHILS # (AUTO) 2.4 K/ul (2.0-6.9); NEUTROPHILS % (AUTO) 54.3; PLATELET COUNT 168 10^3/uL (140-440); RED BLOOD COUNT 4.03 10^6/ul (4.20-5.40); WHITE BLOOD COUNT 4.38 K/ul (4.6-10.2)
[2017-07-13 16:11] LABS: ALBUMIN 3.3 g/dL (3.4-5.0); ALBUMIN/GLOBULIN RATIO 0.87; ANION GAP 12.1; BILIRUBIN,TOTAL 0.28 mg/dL (0.00-1.20); BUN/CREATININE RATIO 11.32; CALCIUM 9.4 mg/dL (8.2-10.2); CHOL/HDL RATIO 5.2 (4.5-5.5); CREATININE 1.06 mg/dL (0.60-1.30); POTASSIUM 4.1 mmol/L (3.5-5.10); TOTAL PROTEIN 7.1 g/dL (5.8-8.1)
== END 2017-07-13 13:12 | disposition home or self-care (01) ==
LOC: LAB 13:11
DX: Z79.899 Other long term (current) drug therapy (principal)
CPT/HCPCS: 36415; 80053; 80061; 83036; 84439; 84443; 85025

== ENCOUNTER 2017-07-16 19:44 | Emergency (ER) ==
[2017-07-16 19:48] VITALS: BP 145/86; TEMP 98.1; BMI 27.4
[2017-07-16] MEDS ORDERED: ZOFRAN 4 MG/2 ML IM STA (19:55)
[2017-07-16 20:14] LABS: BASOPHILS % (AUTO) 0.3 % (0.0-3.0); EOSINOPHILS # (AUTO) 0.1 K/ul (0.0-0.7); HEMATOCRIT 37.4 % (37.0-47.0); HEMOGLOBIN 12.8 g/dl (12.0-16.0); IMMATURE GRANULOCYTE % (AUTO) 0.2 % (0.0-5.0); LYMPHOCYTES # (AUTO) 2.6 K/uL (0.60-3.4); LYMPHOCYTES % (AUTO) 42.7 (10.0-50.0); MEAN CORPUSCULAR HEMOGLOBIN 29.9 pg (27.0-31.0); MEAN CORPUSCULAR HGB CONC 34.2 (31.8-35.4); MEAN CORPUSCULAR VOLUME 87.4 fl (81.0-99.0); MONOCYTES # (AUTO) 0.5 K/uL (0.4-2.0); MONOCYTES % (AUTO) 7.7 (0-10); NEUTROPHILS # (AUTO) 2.8 K/ul (2.0-6.9); NEUTROPHILS % (AUTO) 47.1; PLATELET COUNT 179 10^3/uL (140-440); RED BLOOD COUNT 4.28 10^6/ul (4.20-5.40); WHITE BLOOD COUNT 5.97 K/ul (4.6-10.2)
[2017-07-16 20:16] LABS: BILIRUBIN,URINE Negative (NEGATIVE); KETONES,URINE Negative (NEGATIVE); LEUKOCYTE ESTERASE ,URINE Trace (NEGATIVE); NITRITE,URINE Negative (NEGATIVE); PH,URINE 5.5 (5-9); PROTEIN,URINE Negative (NEGATIVE); URINE, BLOOD Negative (NEGATIVE)
[2017-07-16 20:17] LABS: ADD URINE MICROSCOPIC YES
[2017-07-16 20:34] LABS: ALBUMIN 3.4 g/dL (3.4-5.0); ALBUMIN/GLOBULIN RATIO 0.79; ANION GAP 14.6; BILIRUBIN,TOTAL 0.22 mg/dL (0.00-1.20); BUN/CREATININE RATIO 13.04; CALCIUM 9.4 mg/dL (8.2-10.2); CREATININE 0.92 mg/dL (0.60-1.30); POTASSIUM 3.6 mmol/L (3.5-5.10); TOTAL PROTEIN 7.7 g/dL (5.8-8.1)
[2017-07-16 20:40] LABS: CREATINE KINASE 50 U/L; LIPASE 49 U/L (8-78)
[2017-07-16] MEDS ORDERED: PHENERGAN 25 MG/ML VIAL IM STA (20:40)
--- NOTE | 2017-07-16 20:59 | CT ---
EXAM: CT scan abdomen pelvis without contrast HISTORY: Nausea COMPARISON: CT scan abdomen pelvis 10/25/2015 FINDINGS: Contiguous axial images obtained from lung bases to the symphysis pubis without contrast u tilizing 3-mm collimation. Sagittal and coronal reconstructions were imaged and reviewed.. The visu alized lung bases are clear. There are benign granulomatous changes in the spleen. Gallbladder appe ars contracted. The liver pancreas and adrenal glands have normal unenhanced CT appearance.. Right kidney is unremarkable. There has been partial left nephrectomy. Atherosclerotic changes are seen i nvolving the aorta without aneurysm formation.. Redemonstrated is a supraumbilical hernia containing only fat.. Postsurgical changes are seen in relation to the colon.. There is no evidence of free f luid or inflammatory changes.. Chronic compression deformities are seen within the lower thoracic sp ine. Avascular necrosis is seen within the right femoral head. There is left-sided intramedullary ro d and nail. There is a chronic fracture involving the anterior and foramen on the left. There is int erval fracture right inferior pubic ramus with partial healing. IMPRESSION: No acute intra-abdominal findings. Stable tiny ventral hernia containing only fat. Postoperative changes as described. ASVD without aneurysm.
--- NOTE | 2017-07-16 21:10 | ED.PDOC ---
General ED Provider: Dr. RANI DE LA PAZ-ER Chief Complaint: Nausea/Vomiting Stated Complaint: aurelio had nausea since starting lexapro 5 days ago Time Seen by Physician: 19:50 Mode of Arrival: Walk-In Information Source: Patient Exam Limitations: No limitations Primary Care Provider: PH[facility]LLIS [facility] Nursing and Triage Documentation Reviewed and Agree: Yes GI Complaint Exam - Vomiting/Diarrhea Complaint/Exam Onset/Duration: 5 days Episodes of Vomiting over last 24 Hours: 0 Initial Severity: Mild Current Severity: Mild Aggravating: Reports: None Alleviating: Reports: None Associated Signs and Symptoms: Denies: Dizziness, Light-headedness, Melena, Hematemesis, Fever, Abdominal pain, Cramping Recent Positive Test: No Use of Oral Contraceptives: No Use of Depoprovera: No Non-GI Risk Factors: Reports: None Related Surgical History: Reports: None Abdominal Findings: Present: None Kussmaul Respirations Present: No Differential Diagnoses: Other Review of Systems - Review Of Systems Constitutional: Reports: No symptoms Eyes: Reports: No symptoms Ears, Nose, Mouth, Throat: Reports: No symptoms Respiratory: Reports: No symptoms Cardiac: Reports: No symptoms GI: Reports: Nausea. Denies: Abdominal pain, Constipated, Diarrhea, Rectal bleeding, Vomiting : Reports: No symptoms Musculoskeletal: Reports: No symptoms Skin: Reports: No symptoms Neurological: Reports: No symptoms Endocrine: Reports: No symptoms Hematologic/Lymphatic: Reports: No symptoms All Other Systems: Reviewed and Negative Past Medical History - Past Medical History Previously Healthy: No Endocrine: Reports: None Cardiovascular: Reports: Hypertension Respiratory: Reports: COPD, Asthma, Pneumonia Hematological: Reports: Anemia Gastrointestinal: Reports: GERD Genitourinary: Reports: CKD Neuro/Psych: Reports: CVA, Schizophrenia Musculoskeletal: Reports: Arthritis, Other Cancer: Reports: Unknown Last Menstrual Period: N/A Other Pertinent Past Medical History: colon resection - Surgical History General Surgical History: Reports: Appendectomy, Pacemaker, Orthopedic (LEFT LEG FRACTURE,lorne in leg leg and hip SURGERY), Other (KIDNEY, COLON RESECTION, LEFT LEG) - Family History Family History: Reports: Unknown - Social History Smoking Status: Current every day smoker Hx Substance Use: No Alcohol Screening: None Lives: With family - Immunizations Tetanus Shot up to Date: No Physical Exam - Physical Exam Appearance: Well-appearing Eyes: SETH, EOMI, Conjunctiva clear ENT: Ears normal, Nose normal, Oropharynx normal Neck: Supple Respiratory: Airway patent, Breath sounds clear, Breath sounds equal, Respirations nonlabored Cardiovascular: RRR, Pulses normal, No rub, No murmur GI/: Soft, Nontender, No masses, Bowel sounds normal, No Organomegaly Musculoskeletal: Normal strength, ROM intact, No edema, No calf tenderness Skin: Warm Neurological: Sensation intact Psychiatric: Affect appropriate, Mood appropriate Interpretation - Radiology Interpretation Radiology Interpretation By: Radiologist Radiology Results: Negative Exam Interpreted: CT Scan - EKG Interpretation Time of EKG #1: 21:10 Rate: Normal Rhythm: Sinus Ectopy: None [place]: NL ST Segment: Normal Critical Care Note - Critical Care Note Total Time (mins): 0 Course - Course Hematology/Chemistry: 07/16/17 20:12 07/16/17 20:12 Orders, Labs, Meds: Lab Review 07/16/17 07/16/17 07/16/17 20:12 20:12 20:12 WBC 5.97 RBC 4.28 Hgb 12.8 Hct 37.4 MCV 87.4 MCH 29.9 MCHC 34.2 RDW Coeff of Lynda 12.7 Plt Count 179 Immature Gran % (Auto) 0.2 Neut % (Auto) 47.1 Lymph % (Auto) 42.7 [place] % (Auto) 7.7 Eos % (Auto) 2.0 Baso % (Auto) 0.3 Immature Gran # (Auto) 0.0 Neut # 2.8 Lymph # 2.6 [place] # 0.5 Eos # 0.1 Baso # 0.0 Sodium 139 Potassium 3.6 Chloride 105 Carbon Dioxide 23 Anion Gap 14.6 BUN 12 Creatinine 0.92 Estimated GFR (MDRD) 62.00 BUN/Creatinine Ratio 13.04 Glucose 98 Calcium 9.4 Total Bilirubin 0.22 AST 12 L ALT 9 L Alkaline Phosphatase 97 Total Creatine Kinase Troponin I Total Protein 7.7 Albumin 3.4 Globulin 4.3 Albumin/Globulin Ratio 0.79 Amylase 61 Lipase Urine Color Yellow Urine Clarity Clear Urine pH 5.5 Ur Specific [place] 1.020 Urine Protein Negative Urine Glucose (UA) Negative Urine Ketones Negative Urine Blood Negative Urine Nitrite Negative Urine Bilirubin Negative Urine Urobilinogen 0.2 Ur Leukocyte Esterase Trace Urine Microscopic RBC 0-2 Urine Microscopic WBC 2-5 Ur Squamous Epith Cells 2-5 07/16/17 20:13 WBC RBC Hgb Hct MCV MCH MCHC RDW Coeff of Lynda Plt Count Immature Gran % (Auto) Neut % (Auto) Lymph % (Auto) [place] % (Auto) Eos % (Auto) Baso % (Auto) Immature Gran # (Auto) Neut # Lymph # [place] # Eos # Baso # Sodium Potassium Chloride Carbon Dioxide Anion Gap BUN Creatinine Estimated GFR (MDRD) BUN/Creatinine Ratio Glucose Calcium Total Bilirubin AST ALT Alkaline Phosphatase Total Creatine Kinase 50 Troponin I < 0.0100 Total Protein Albumin Globulin Albumin/Globulin Ratio Amylase Lipase 49 Urine Color Urine Clarity Urine pH Ur Specific [place] Urine Protein Urine Glucose (UA) Urine Ketones Urine Blood Urine Nitrite Urine Bilirubin Urine Urobilinogen Ur Leukocyte Esterase Urine Microscopic RBC Urine Microscopic WBC Ur Squamous Epith Cells Orders Category Date Time Status EKG-(ED ONLY) Stat CARDIO 07/16/17 19:53 Completed AMYLASE Stat LAB 07/16/17 20:12 Completed CBC W/ AUTO DIFF Stat LAB 07/16/17 20:12 Completed COMPREHENSIVE METABOLIC PANEL Stat LAB 07/16/17 20:12 Completed CREATINE KINASE Stat LAB 07/16/17 20:13 Completed LIPASE Stat LAB 07/16/17 20:13 Completed TROPONIN I Stat LAB 07/16/17 20:13 Completed URINALYSIS C & S IF INDICATED Stat LAB 07/16/17 20:12 Completed Ondansetron HCl/Pf [Zofran 4 mg/2 ml] MEDS 07/16/17 19:55 Discontinued 4 mg IM ONCE STA Promethazine HCl [Phenergan 25 mg/ml Vial] MEDS 07/16/17 20:40 Discontinued 25 mg IM ONCE STA CT ABDOMEN/PELVIS WO CONTRAST Stat RADS 07/16/17 19:54 Completed Medications Discontinued Medications Generic Name Dose Route Start Last Admin Trade Name Freq PRN Reason Stop Dose Admin Ondansetron HCl 4 mg 07/16/17 19:55 07/16/17 20:03 Zofran 4 Mg/2 Ml IM 07/16/17 19:56 4 mg ONCE STA Administration Promethazine HCl 25 mg 07/16/17 20:40 07/16/17 20:52 Phenergan 25 Mg/Ml Vial IM 07/16/17 20:41 25 mg ONCE STA Administration Vital Signs: Temp Pulse Resp BP Pulse Ox 07/16/17 19:45 98.1 F 69 20 145/86 H 97 Departure - Departure Time of Disposition: 21:10 Disposition: HOME SELF-CARE Discharge Problem: Nausea Instructions: Abdominal Pain (ED) Condition: Good Pt referred to PMD for follow-up: Yes Additional Instructions: hold lexapro tomorrow until u talk to your doctor Allergies/Adverse Reactions: Allergies haloperidol [From Haldol] Allergy (Severe, Verified 07/16/17 19:49) swelling in mouth Pt to get medical alert necklace haloperidol lactate [From Haldol] Allergy (Severe, Verified 07/16/17 19:49) swelling in mouth Pt to get medical alert necklace olanzapine [From Zyprexa] Adverse Reaction (Severe, Verified 07/16/17 19:49) Hives oxytetracycline [From Terramycin] Adverse Reaction (Severe, Verified 07/16/17 19 :49) Hives oxytetracycline HCl [From Terramycin] Adverse Reaction (Severe, Verified 19:49) Hives Sulfa (Sulfonamide Antibiotics) Adverse Reaction (Verified 07/16/17 19:49) Home Medications: Ambulatory Orders Hydrocodone Bit/Acetaminophen [Lortab 10-500] 1 tab PO TID #1 11/02/14 Budesonide/Formoterol Fumarate [Symbicort 160-4.5 Mcg Inhaler] 2 puff IH BID Benztropine Mesylate 2 mg PO DAILY 04/20/15 Quetiapine Fumarate [Seroquel] 600 mg PO BEDTIME 10/29/16 Baclofen 20 mg PO BID 11/21/16 Citalopram Hydrobromide [Citalopram HBr] 40 mg PO BEDTIME 11/21/16 Cyclobenzaprine HCl 10 mg PO BID 11/21/16 Dicyclomine HCl 10 mg PO TID 11/21/16 Fluphenazine HCl 10 mg PO BEDTIME 11/21/16 Omeprazole [Prilosec] 20 mg PO QDAC 11/21/16 Zolpidem Tartrate [Ambien] 5 mg PO BEDTIME 11/21/16 Hydroxyzine HCl 25 mg PO BEDTIME 12/24/16 Cephalexin [Keflex] 500 mg PO Q12HR #14 capsule 05/06/17 Methylprednisolone [Medrol Dosepak] 4 mg PO DIRECTED #1 tab.ds.pk 05/06/17 Disposition Discussed With: Patient
== END 2017-07-16 21:20 | disposition home or self-care (01) ==
LOC: ED 19:44
DX: R11.0 Nausea (principal); F17.210 Nicotine dependence, cigarettes, uncomplicated; Z79.899 Other long term (current) drug therapy; Z86.73 Personal history of transient ischemic attack (TIA), and cerebral infarction without residual deficits; N18.9 Chronic kidney disease, unspecified; I10 Essential (primary) hypertension; J44.9 Chronic obstructive pulmonary disease, unspecified; K21.9 Gastro-esophageal reflux disease without esophagitis; Z95.0 Presence of cardiac pacemaker
CPT/HCPCS: 36415; 80053; 81001; 82150; 82550; 83690; 84484; 85025; 93005; 93010; 96372; 99283

== ENCOUNTER 2017-08-05 09:36 | Outpatient (CLI) ==
[2017-08-05] MEDS ORDERED: PROLIA SUBCUT STA (09:44)
== END 2017-08-05 09:37 | disposition home or self-care (01) ==
LOC: OPMED 09:36
PROVIDERS: ATTEND Emergency Medicine
DX: M81.0 Age-related osteoporosis without current pathological fracture (principal); M19.90 Unspecified osteoarthritis, unspecified site
CPT/HCPCS: 96372

== ENCOUNTER 2017-08-08 12:49 | Emergency (ER) ==
[2017-08-08 12:49] VITALS: BMI 27.4
[2017-08-08 12:56] VITALS: BP 149/85; TEMP 99
--- NOTE | 2017-08-08 13:15 | ED.PDOC ---
General ED Provider: Dr. GENNARO ANDRES Chief Complaint: Nausea/Vomiting Stated Complaint: Nauseated x 3 days. Onset after Prolia injection (to improve blood count). No vomiting. Diarrhea (frequent watery stools) since yesterday, [facility]. Time Seen by Physician: 13:17 Information Source: Patient Exam Limitations: Physical impairment [facility] T[facility] Documentation Reviewed and Agree: Yes GI Complaint Exam - Vomiting/Diarrhea Complaint/Exam Onset/Duration: 3 days Symptoms Are: Still present Episodes of Vomiting over last 24 Hours: 0 Episodes of Diarrhea Over Last 24 Hours: 20 ([facility]) Initial Severity: Mild Current Severity: Moderate Character of Diarrhea: Reports: Watery Aggravating: Reports: Food Alleviating: Reports: None Related History: Denies: Similar episode, Recent antibiotics Non-GI Risk Factors: Reports: None Surgical Obstruction Risk Factors: Reports: None Related Surgical History: Reports: Colectomy (partial for ulcerative colitis) Abdominal Findings: Present: None Differential Diagnoses: Gastritis, PUD, Viral Gastroenteritis, Bacterial Gastroenteritis Review of Systems - Review Of Systems Constitutional: Reports: No symptoms Eyes: Reports: No symptoms Ears, Nose, Mouth, Throat: Reports: No symptoms Respiratory: Reports: No symptoms Cardiac: Reports: No symptoms GI: Reports: Diarrhea, Nausea. Denies: Vomiting : Reports: No symptoms Musculoskeletal: Reports: No symptoms Skin: Reports: No symptoms Neurological: Reports: No symptoms All Other Systems: Reviewed and Negative Past Medical History - Past Medical History Previously Healthy: No Endocrine: Reports: None Cardiovascular: Reports: Hypertension Respiratory: Reports: COPD, Asthma, Pneumonia Hematological: Reports: Anemia Gastrointestinal: Reports: GERD Genitourinary: Reports: CKD Neuro/Psych: Reports: CVA, Schizophrenia Musculoskeletal: Reports: Arthritis, Other Cancer: Reports: Unknown Last Menstrual Period: n/a Other Pertinent Past Medical History: colon resection - Surgical History General Surgical History: Reports: Appendectomy, Pacemaker, Orthopedic (LEFT LEG FRACTURE,lorne in leg leg and hip SURGERY), Other (KIDNEY, COLON RESECTION, LEFT LEG) - Family History Family History: Reports: Unknown - Social History Smoking Status: Current every day smoker Hx Substance Use: No Alcohol Screening: None - Immunizations Tetanus Shot up to Date: No Physical Exam - Physical Exam Appearance: Well-appearing, No pain distress, Well-nourished Ill-appearing: None Pain Distress: None Eyes: SETH, EOMI, Conjunctiva clear ENT: Ears normal, Nose normal, Oropharynx normal Neck: Supple Respiratory: Airway patent, Breath sounds clear, Breath sounds equal, Respirations nonlabored Cardiovascular: RRR, Pulses normal, No rub, No murmur GI/: Soft, Nontender, No masses, Bowel sounds normal, No Organomegaly Musculoskeletal: Normal strength Skin: Warm, Dry, Normal color Neurological: Sensation intact, Motor intact, Reflexes intact, Cranial nerves intact, Alert, Oriented Psychiatric: Affect appropriate, Mood appropriate Critical Care Note - Critical Care Note Total Time (mins): 0 Course - Course Hematology/Chemistry: 08/08/17 13:35 08/08/17 13:35 Orders, Labs, Meds: Lab Review 08/08/17 08/08/17 08/08/17 13:35 13:35 13:35 WBC 6.81 RBC 4.35 Hgb 13.2 Hct 38.2 MCV 87.8 MCH 30.3 MCHC 34.6 RDW Coeff of Lynda 13.0 Plt Count 174 Immature Gran % (Auto) 0.4 Neut % (Auto) 63.7 Lymph % (Auto) 26.4 [place] % (Auto) 8.2 Eos % (Auto) 0.9 Baso % (Auto) 0.4 Immature Gran # (Auto) 0.0 Neut # 4.3 Lymph # 1.8 [place] # 0.6 Eos # 0.1 Baso # 0.0 Sodium 139 Potassium 4.1 Chloride 106 Carbon Dioxide 22 L Anion Gap 15.1 BUN 11 Creatinine 0.95 Estimated GFR (MDRD) 60.00 BUN/Creatinine Ratio 11.57 Glucose 110 Calcium 9.3 Total Bilirubin 0.44 AST 13 L ALT 9 L Alkaline Phosphatase 91 Total Creatine Kinase 57 Total Protein 8.0 Albumin 3.6 Globulin 4.4 Albumin/Globulin Ratio 0.82 Amylase 52 Lipase 22 Urine Color Yellow Urine Clarity Clear Urine pH 5.5 Ur Specific [place] 1.025 Urine Protein Trace Urine Glucose (UA) Negative Urine Ketones Negative Urine Blood Trace-intact Urine Nitrite Negative Urine Bilirubin Negative Urine Urobilinogen 0.2 Ur Leukocyte Esterase Trace Urine Microscopic RBC 0-2 Urine Microscopic WBC 0-2 Ur Squamous Epith Cells 0-2 Urine Bacteria Trace Orders Category Date Time Status AMYLASE Stat LAB 08/08/17 13:35 Completed CBC W/ AUTO DIFF Stat LAB 08/08/17 13:35 Completed CK [CREATINE KINASE] Stat LAB 08/08/17 13:35 Completed COMPREHENSIVE METABOLIC PANEL Stat LAB 08/08/17 13:35 Completed LIPASE Stat LAB 08/08/17 13:35 Completed URINALYSIS C & S IF INDICATED Stat LAB 08/08/17 13:35 Completed Ondansetron [Zofran Odt] MEDS 08/08/17 13:22 Discontinued 4 mg PO ONCE STA Medications Discontinued Medications Generic Name Dose Route Start Last Admin Trade Name Maritza PRN Reason Stop Dose Admin Ondansetron HCl 4 mg 08/08/17 13:22 08/08/17 13:32 Zofran Odt PO 08/08/17 13:23 4 mg ONCE STA Administration Vital Signs: Temp Pulse Resp BP Pulse Ox 08/08/17 12:51 99.0 F 86 20 149/85 H 97 Departure - Departure Time of Disposition: 14:22 Disposition: HOME SELF-CARE Discharge Problem: Allergic reaction to drug Qualifiers: Encounter type: initial encounter Qualified Code(s): T78.40XA - Allergy, unspecified, initial encounter Instructions: Urticaria (ED), General Allergic Reaction (ED) Condition: Good Pt referred to PMD for follow-up: No (See doctor if no better in 2 days. Advixe doctor of your allergic reaction ) Additional Instructions: Benadryl 25 to 50 mg every 4 hours as needed for itching. Avoid direct sunlight or excessive heat. Allergies/Adverse Reactions: Allergies haloperidol [From Haldol] Allergy (Severe, Verified 08/08/17 12:56) swelling in mouth Pt to get medical alert necklace haloperidol lactate [From Haldol] Allergy (Severe, Verified 08/08/17 12:56) swelling in mouth Pt to get medical alert necklace olanzapine [From Zyprexa] Adverse Reaction (Severe, Verified 08/08/17 12:56) Hives oxytetracycline [From Terramycin] Adverse Reaction (Severe, Verified 08/08/17 12 :56) Hives oxytetracycline HCl [From Terramycin] Adverse Reaction (Severe, Verified 12:56) Hives Sulfa (Sulfonamide Antibiotics) Adverse Reaction (Verified 08/08/17 12:56) Home Medications: Ambulatory Orders Hydrocodone Bit/Acetaminophen [Lortab 10-500] 1 tab PO TID #1 11/02/14 Budesonide/Formoterol Fumarate [Symbicort 160-4.5 Mcg Inhaler] 2 puff IH BID Quetiapine Fumarate [Seroquel] 600 mg PO BEDTIME 10/29/16 Baclofen 20 mg PO BID 11/21/16 Cyclobenzaprine HCl 10 mg PO BID 11/21/16 Dicyclomine HCl 10 mg PO TID 11/21/16 Omeprazole [Prilosec] 20 mg PO QDAC 11/21/16 Zolpidem Tartrate [Ambien] 5 mg PO BEDTIME 11/21/16 Hydroxyzine HCl 25 mg PO BEDTIME 12/24/16 Cephalexin [Keflex] 500 mg PO Q12HR #14 capsule 05/06/17 Methylprednisolone [Medrol Dosepak] 4 mg PO DIRECTED #1 tab.ds.pk 05/06/17 Ondansetron [Zofran Odt] 8 mg PO Q6H PRN #20 tab.rapdis 08/08/17 Disposition Discussed With: Patient
[2017-08-08] MEDS ORDERED: ZOFRAN ODT PO STA ×2 (13:22→14:18)
[2017-08-08 13:46] LABS: BASOPHILS % (AUTO) 0.4 % (0.0-3.0); EOSINOPHILS # (AUTO) 0.1 K/ul (0.0-0.7); EOSINOPHILS % (AUTO) 0.9 % (0.0-7.0); HEMATOCRIT 38.2 % (37.0-47.0); HEMOGLOBIN 13.2 g/dl (12.0-16.0); IMMATURE GRANULOCYTE % (AUTO) 0.4 % (0.0-5.0); LYMPHOCYTES # (AUTO) 1.8 K/uL (0.60-3.4); LYMPHOCYTES % (AUTO) 26.4 (10.0-50.0); MEAN CORPUSCULAR HEMOGLOBIN 30.3 pg (27.0-31.0); MEAN CORPUSCULAR HGB CONC 34.6 (31.8-35.4); MEAN CORPUSCULAR VOLUME 87.8 fl (81.0-99.0); MONOCYTES # (AUTO) 0.6 K/uL (0.4-2.0); MONOCYTES % (AUTO) 8.2 (0-10); NEUTROPHILS # (AUTO) 4.3 K/ul (2.0-6.9); NEUTROPHILS % (AUTO) 63.7; PLATELET COUNT 174 10^3/uL (140-440); RED BLOOD COUNT 4.35 10^6/ul (4.20-5.40); WHITE BLOOD COUNT 6.81 K/ul (4.6-10.2)
[2017-08-08 13:48] LABS: BILIRUBIN,URINE Negative (NEGATIVE); KETONES,URINE Negative (NEGATIVE); LEUKOCYTE ESTERASE ,URINE Trace (NEGATIVE); NITRITE,URINE Negative (NEGATIVE); PH,URINE 5.5 (5-9); PROTEIN,URINE Trace (NEGATIVE); URINE, BLOOD Trace-intact (NEGATIVE)
[2017-08-08 13:50] LABS: ADD URINE MICROSCOPIC YES
[2017-08-08 13:51] LABS: BACTERIA,URINE TRACE (NOT PRESENT)
[2017-08-08 14:06] LABS: ALBUMIN 3.6 g/dL (3.4-5.0); ALBUMIN/GLOBULIN RATIO 0.82; ANION GAP 15.1; BILIRUBIN,TOTAL 0.44 mg/dL (0.00-1.20); CALCIUM 9.3 mg/dL (8.2-10.2); CREATININE 0.95 mg/dL (0.60-1.30); POTASSIUM 4.1 mmol/L (3.5-5.10)
[2017-08-08 14:07] LABS: BUN/CREATININE RATIO 11.57
== END 2017-08-08 14:34 | disposition home or self-care (01) ==
LOC: ED 12:49
DX: T78.40XA Allergy, unspecified, initial encounter (principal); R19.7 Diarrhea, unspecified; R11.0 Nausea; N18.9 Chronic kidney disease, unspecified; D63.1 Anemia in chronic kidney disease; I10 Essential (primary) hypertension; F17.210 Nicotine dependence, cigarettes, uncomplicated; Z79.899 Other long term (current) drug therapy
CPT/HCPCS: 36415; 80053; 81001; 82150; 82550; 83690; 85025; 99284

== ENCOUNTER 2017-08-15 09:08 | Emergency (ER) ==
[2017-08-15 09:16] VITALS: TEMP 98.3; BMI 26.9
[2017-08-15] MEDS ORDERED: PHENERGAN 25 MG/ML VIAL IM STA (09:48)
--- NOTE | 2017-08-15 09:48 | ED.PDOC ---
General ED Provider: Dr. SHYLA KOHLI Chief Complaint: Abdominal Pain Stated Complaint: Patient is a 61 year old female who came to the hospital for Prolia injection 1 week ago for RA since has had abdominal pain/cramping, nausea /vomiting, diarrhea - 4-5 x times a day Time Seen by Physician: 09:46 Mode of Arrival: Walk-In Information Source: Patient Primary Care [facility] Nursing and Triage Documentation Reviewed and Agree: Yes Review of Systems - Review Of Systems Constitutional: Reports: No symptoms Eyes: Reports: No symptoms Ears, Nose, Mouth, Throat: Reports: No symptoms Respiratory: Reports: No symptoms Cardiac: Reports: No symptoms GI: Reports: Nausea, Poor appetite : Reports: No symptoms Musculoskeletal: Reports: No symptoms Skin: Reports: No symptoms Neurological: Reports: No symptoms Endocrine: Reports: No symptoms Hematologic/Lymphatic: Reports: No symptoms All Other Systems: Reviewed and Negative Past Medical History - Past Medical History Previously Healthy: No Endocrine: Reports: None Cardiovascular: Reports: Hypertension Respiratory: Reports: COPD, Asthma, Pneumonia Hematological: Reports: Anemia Gastrointestinal: Reports: GERD Genitourinary: Reports: CKD Neuro/Psych: Reports: CVA, Schizophrenia Musculoskeletal: Reports: Arthritis (Rheumatoid ), Other Cancer: Reports: Unknown Last Menstrual Period: N/A - last time about 8 years ago Other Pertinent Past Medical History: colon resection - Surgical History General Surgical History: Reports: Appendectomy, Pacemaker, Orthopedic (LEFT LEG FRACTURE,lorne in leg leg and hip SURGERY), Other (KIDNEY, COLON RESECTION, LEFT LEG) - Family History Family History: Reports: Unknown - Social History Smoking Status: Current every day smoker Hx Substance Use: No Alcohol Screening: None - Immunizations Tetanus Shot up to Date: Yes Physical Exam - Physical Exam Appearance: Ill-appearing, Obese Ill-appearing: Moderate Eyes: SETH, EOMI, Conjunctiva clear Neck: Supple Respiratory: Airway patent, Breath sounds clear, Breath sounds equal, Respirations nonlabored Cardiovascular: RRR, Pulses normal, No rub, No murmur GI/: Soft, Nontender, No masses, Bowel sounds normal, No Organomegaly Musculoskeletal: Normal strength, ROM intact, No edema, No calf tenderness Skin: Warm, Dry, Normal color Neurological: Sensation intact, Motor intact, Alert, Oriented Psychiatric: Anxious Re-Evaluation - Re-Evaluation Time of Re-Evaluation: 11:03 Status: Improved Vital Signs Stable: Yes (162/88) Critical Care Note - Critical Care Note Total Time (mins): 0 Course - Course Hematology/Chemistry: 08/15/17 10:15 08/15/17 10:15 Orders, Labs, Meds: Lab Review 08/15/17 08/15/17 10:15 10:15 WBC 4.84 RBC 4.22 Hgb 12.7 Hct 36.9 L MCV 87.4 MCH 30.1 MCHC 34.4 RDW Coeff of Lynda 12.8 Plt Count 148 Immature Gran % (Auto) 0.4 Neut % (Auto) 63.7 Lymph % (Auto) 28.9 [place] % (Auto) 5.8 Eos % (Auto) 0.8 Baso % (Auto) 0.4 Immature Gran # (Auto) 0.0 Neut # 3.1 Lymph # 1.4 [place] # 0.3 L Eos # 0.0 Baso # 0.0 Sodium 137 Potassium 4.5 Chloride 108 H Carbon Dioxide 22 L Anion Gap 11.5 BUN 17 Creatinine 1.10 Estimated GFR (MDRD) 51.00 BUN/Creatinine Ratio 15.45 Glucose 99 Calcium 8.7 Total Bilirubin 0.34 AST 12 L ALT 9 L Alkaline Phosphatase 83 Total Protein 7.4 Albumin 3.6 Globulin 3.8 Albumin/Globulin Ratio 0.95 Amylase 84 Lipase 90 H Orders Category Date Time Status AMYLASE Stat LAB 08/15/17 10:15 Completed CBC W/ AUTO DIFF Stat LAB 08/15/17 10:15 Completed COMPREHENSIVE METABOLIC PANEL Stat LAB 08/15/17 10:15 Completed LIPASE Stat LAB 08/15/17 10:15 Completed Promethazine HCl [Phenergan 25 mg/ml Vial] MEDS 08/15/17 09:48 Discontinued 25 mg IM ONCE STA Medications Discontinued Medications Generic Name Dose Route Start Last Admin Trade Name Freq PRN Reason Stop Dose Admin Promethazine HCl 25 mg 08/15/17 09:48 08/15/17 09:56 Phenergan 25 Mg/Ml Vial IM 08/15/17 09:49 25 mg ONCE STA Administration Vital Signs: Temp Pulse Resp BP Pulse Ox 08/15/17 11:00 59 L 18 162/88 H 95 08/15/17 09:10 98.3 F 83 18 180/82 H 97 Departure - Departure Time of Disposition: 10:57 Disposition: HOME SELF-CARE Discharge Problem: Gastroenteritis Gastritis Qualifiers: Gastritis type: unspecified gastritis Chronicity: acute Gastritis bleeding: without bleeding Qualified Code(s): K29.00 - Acute gastritis without bleeding Instructions: Gastritis (ED), Gastroenteritis (ED) Condition: Stable Pt referred to PMD for follow-up: Yes Additional Instructions: Push fluids Take Nausea medications as needed for nausea Followup with PCP in 3 days Prescriptions: Diphenoxylate HCl/Atropine [Lomotil 2.5-0.025 mg Tablet] 1 each PO TID PRN #15 tablet PRN Reason: Diarrhea Promethazine HCl [Phenergan Tab] 25 mg PO Q6H PRN #15 tablet PRN Reason: Nausea / Vomiting Allergies/Adverse Reactions: Allergies haloperidol [From Haldol] Allergy (Severe, Verified 08/08/17 12:56) swelling in mouth Pt to get medical alert necklace haloperidol lactate [From Haldol] Allergy (Severe, Verified 08/08/17 12:56) swelling in mouth Pt to get medical alert necklace olanzapine [From Zyprexa] Adverse Reaction (Severe, Verified 08/08/17 12:56) Hives oxytetracycline [From Terramycin] Adverse Reaction (Severe, Verified 08/08/17 12 :56) Hives oxytetracycline HCl [From Terramycin] Adverse Reaction (Severe, Verified 12:56) Hives Sulfa (Sulfonamide Antibiotics) Adverse Reaction (Verified 08/08/17 12:56) Home Medications: Ambulatory Orders Hydrocodone Bit/Acetaminophen [Lortab 10-500] 1 tab PO TID #1 11/02/14 Budesonide/Formoterol Fumarate [Symbicort 160-4.5 Mcg Inhaler] 2 puff IH BID Quetiapine Fumarate [Seroquel] 600 mg PO BEDTIME 10/29/16 Cyclobenzaprine HCl 10 mg PO BID 11/21/16 Dicyclomine HCl 10 mg PO TID 11/21/16 Omeprazole [Prilosec] 20 mg PO QDAC 11/21/16 Zolpidem Tartrate [Ambien] 5 mg PO BEDTIME 11/21/16 Hydroxyzine HCl 25 mg PO BEDTIME 12/24/16 Denosumab [Prolia] 60 mg SQ DIRECTED 08/15/17 Diphenoxylate HCl/Atropine [Lomotil 2.5-0.025 mg Tablet] 1 each PO TID PRN #15 tablet 08/15/17 Promethazine HCl [Phenergan Tab] 25 mg PO Q6H PRN #15 tablet 08/15/17
[2017-08-15 10:22] LABS: BASOPHILS % (AUTO) 0.4 % (0.0-3.0); EOSINOPHILS % (AUTO) 0.8 % (0.0-7.0); HEMATOCRIT 36.9 % (37.0-47.0); HEMOGLOBIN 12.7 g/dl (12.0-16.0); IMMATURE GRANULOCYTE % (AUTO) 0.4 % (0.0-5.0); LYMPHOCYTES # (AUTO) 1.4 K/uL (0.60-3.4); LYMPHOCYTES % (AUTO) 28.9 (10.0-50.0); MEAN CORPUSCULAR HEMOGLOBIN 30.1 pg (27.0-31.0); MEAN CORPUSCULAR HGB CONC 34.4 (31.8-35.4); MEAN CORPUSCULAR VOLUME 87.4 fl (81.0-99.0); MONOCYTES # (AUTO) 0.3 K/uL (0.4-2.0); MONOCYTES % (AUTO) 5.8 (0-10); NEUTROPHILS # (AUTO) 3.1 K/ul (2.0-6.9); NEUTROPHILS % (AUTO) 63.7; PLATELET COUNT 148 10^3/uL (140-440); RED BLOOD COUNT 4.22 10^6/ul (4.20-5.40); WHITE BLOOD COUNT 4.84 K/ul (4.6-10.2)
[2017-08-15 10:41] LABS: ALBUMIN 3.6 g/dL (3.4-5.0); ALBUMIN/GLOBULIN RATIO 0.95; ANION GAP 11.5; BILIRUBIN,TOTAL 0.34 mg/dL (0.00-1.20); BUN/CREATININE RATIO 15.45; CALCIUM 8.7 mg/dL (8.2-10.2); CREATININE 1.1 mg/dL (0.60-1.30); POTASSIUM 4.5 mmol/L (3.5-5.10); TOTAL PROTEIN 7.4 g/dL (5.8-8.1)
[2017-08-15 11:05] VITALS: BP 162/88
== END 2017-08-15 11:12 | disposition home or self-care (01) ==
LOC: ED 09:08
DX: K29.00 Acute gastritis without bleeding (principal); M06.9 Rheumatoid arthritis, unspecified; I10 Essential (primary) hypertension; F17.210 Nicotine dependence, cigarettes, uncomplicated; Z79.899 Other long term (current) drug therapy
CPT/HCPCS: 36415; 80053; 82150; 83690; 85025; 96372; 99283

== ENCOUNTER 2017-08-18 09:38 | Inpatient (IN) ==
[2017-08-18 10:03] VITALS: BMI 25.7
[2017-08-18] MEDS ORDERED: PHENERGAN 25 MG/ML VIAL 12.5 MG in SODIUM CHLORIDE 50 ML IV PRN (10:14)
[2017-08-18 10:58] LABS: BASOPHILS % (AUTO) 0.3 % (0.0-3.0); EOSINOPHILS # (AUTO) 0.1 K/ul (0.0-0.7); EOSINOPHILS % (AUTO) 1.1 % (0.0-7.0); HEMATOCRIT 36.5 % (37.0-47.0); HEMOGLOBIN 12.7 g/dl (12.0-16.0); IMMATURE GRANULOCYTE % (AUTO) 0.3 % (0.0-5.0); LYMPHOCYTES # (AUTO) 1.6 K/uL (0.60-3.4); LYMPHOCYTES % (AUTO) 23.9 (10.0-50.0); MEAN CORPUSCULAR HEMOGLOBIN 30.2 pg (27.0-31.0); MEAN CORPUSCULAR HGB CONC 34.8 (31.8-35.4); MEAN CORPUSCULAR VOLUME 86.9 fl (81.0-99.0); MONOCYTES # (AUTO) 0.4 K/uL (0.4-2.0); MONOCYTES % (AUTO) 5.7 (0-10); NEUTROPHILS # (AUTO) 4.6 K/ul (2.0-6.9); NEUTROPHILS % (AUTO) 68.7; PLATELET COUNT 171 10^3/uL (140-440); WHITE BLOOD COUNT 6.65 K/ul (4.6-10.2)
[2017-08-18 11:21] LABS: ALBUMIN 3.6 g/dL (3.4-5.0); ALBUMIN/GLOBULIN RATIO 0.9; ANION GAP 12.2; BILIRUBIN,TOTAL 0.45 mg/dL (0.00-1.20); BUN/CREATININE RATIO 13.33; CREATININE 1.05 mg/dL (0.60-1.30); POTASSIUM 4.2 mmol/L (3.5-5.10); TOTAL PROTEIN 7.6 g/dL (5.8-8.1)
[2017-08-18] MEDS ORDERED: ALBUTEROL 0.083% NEB NEB PRN (11:26)
[2017-08-18] MEDS ORDERED: LOMOTIL PO PRN (11:26)
[2017-08-18] MEDS: SODIUM CHLORIDE 1,000 ML IV SCH (12:05)
--- NOTE | 2017-08-18 13:21 | CT ---
EXAM: CT Abdomen without contrast. CT Pelvis without contrast. HISTORY: Epigastric pain for 2 weeks. COMPARISON: 07/16/2017. TECHNIQUE: Multiple axial images of the abdomen and pelvis were obtained without intravenous contras t. Images were reformatted in the coronal plane. FINDINGS: Please note that evaluation of the abdominal and pelvic structures is limited due to lack of intravenous contrast. Internal fixation of old left femoral fracture noted. Old rib fractures are seen along with old comp ression deformities of L3, T12 and T11. Old right superior and inferior pubic ramus fractures again n oted with slightly increased sclerosis at the fracture sites. The lung bases are clear. The liver, gallbladder, pancreas, spleen, and adrenal glands demonstrate normal contour. Postsurgica l changes of the left kidney noted. There is no hydronephrosis. The bowel is normal in course and caliber without evidence for obstruction or inflammatory process. Question partial colectomy. Small fat-containing ventral hernia noted on axial image 37 without asso ciated inflammation. Uterus demonstrates normal contour. Urinary bladder is unremarkable. No free fluid or free air identified. Atherosclerotic calcifications are present. IMPRESSION: No acute abnormality within the abdomen or pelvis.
[2017-08-18] MEDS ORDERED: PHENERGAN 25 MG/ML VIAL ONE (13:42)
[2017-08-18] MEDS: PROTONIX IV IVP SCH ×2 (13:59→22:38)
[2017-08-18] MEDS ORDERED: NON-FORMULARY MEDICATION (Hydrocodone Bit/Acetaminophen 1 TAB) PO SCH (15:00)
[2017-08-18] MEDS ORDERED: ZOFRAN ODT PO SCH (15:00)
[2017-08-18] MEDS ORDERED: NON-FORMULARY MEDICATION (Zofran Odt 4 MG) PO SCH (15:00)
[2017-08-18] MEDS: BENTYL PO SCH ×2 (15:51→22:02)
[2017-08-18] MEDS: ZOFRAN TAB PO SCH ×2 (15:52→22:03)
[2017-08-18] MEDS: NEURONTIN PO SCH ×2 (15:52→22:02)
[2017-08-18] MEDS: NORCO 10-325 PO SCH ×2 (15:52→22:03)
[2017-08-18 17:09] LABS: CREATINE KINASE 39 U/L
[2017-08-18] MEDS: PHENERGAN TAB PO PRN (20:00)
[2017-08-18] MEDS ORDERED: NON-FORMULARY MEDICATION (Quetiapine Fumarate [Seroquel] 600 MG) PO SCH (21:00)
[2017-08-18] MEDS: SEROQUEL PO SCH (22:02)
[2017-08-18] MEDS: SYMBICORT 160-4.5 MCG INHALER IH SCH (22:02)
[2017-08-18] MEDS: FLEXERIL PO SCH (22:03)
[2017-08-18] MEDS: ATARAX PO SCH (22:03)
[2017-08-18] MEDS: AMBIEN PO SCH (22:03)
[2017-08-18] MEDS: LOPRESSOR PO SCH (22:03)
[2017-08-19 02:21] LABS: BASOPHILS % (AUTO) 0.4 % (0.0-3.0); EOSINOPHILS # (AUTO) 0.2 K/ul (0.0-0.7); EOSINOPHILS % (AUTO) 3.2 % (0.0-7.0); HEMATOCRIT 36.1 % (37.0-47.0); HEMOGLOBIN 12.3 g/dl (12.0-16.0); IMMATURE GRANULOCYTE % (AUTO) 0.2 % (0.0-5.0); LYMPHOCYTES # (AUTO) 2.1 K/uL (0.60-3.4); LYMPHOCYTES % (AUTO) 42.8 (10.0-50.0); MEAN CORPUSCULAR HEMOGLOBIN 30.1 pg (27.0-31.0); MEAN CORPUSCULAR HGB CONC 34.1 (31.8-35.4); MEAN CORPUSCULAR VOLUME 88.5 fl (81.0-99.0); MONOCYTES # (AUTO) 0.3 K/uL (0.4-2.0); MONOCYTES % (AUTO) 6.6 (0-10); NEUTROPHILS # (AUTO) 2.3 K/ul (2.0-6.9); NEUTROPHILS % (AUTO) 46.8; PLATELET COUNT 170 10^3/uL (140-440); RED BLOOD COUNT 4.08 10^6/ul (4.20-5.40)
[2017-08-19 02:47] LABS: ALBUMIN 3.3 g/dL (3.4-5.0); ALBUMIN/GLOBULIN RATIO 0.94; BILIRUBIN,TOTAL 0.46 mg/dL (0.00-1.20); BUN/CREATININE RATIO 12.64; CALCIUM 8.3 mg/dL (8.2-10.2); CREATININE 0.87 mg/dL (0.60-1.30); TOTAL PROTEIN 6.8 g/dL (5.8-8.1)
[2017-08-19 02:55] LABS: CREATINE KINASE 30 U/L
[2017-08-19] MEDS: SODIUM CHLORIDE 1,000 ML IV SCH ×2 (05:04→18:42)
[2017-08-19] MEDS: PRILOSEC PO SCH (05:56)
[2017-08-19] MEDS: SYMBICORT 160-4.5 MCG INHALER IH SCH ×2 (08:39→22:20)
[2017-08-19] MEDS: PHENERGAN TAB PO PRN (08:40)
[2017-08-19] MEDS: PROTONIX IV IVP SCH ×2 (08:40→22:20)
[2017-08-19] MEDS: ZESTRIL PO SCH (08:40)
[2017-08-19] MEDS: FLEXERIL PO SCH ×2 (08:40→22:19)
[2017-08-19] MEDS: NORCO 10-325 PO SCH ×3 (08:40→22:20)
[2017-08-19] MEDS: BENTYL PO SCH ×3 (08:40→22:20)
[2017-08-19] MEDS: NEURONTIN PO SCH ×3 (08:40→22:19)
[2017-08-19] MEDS: ZOFRAN TAB PO SCH ×3 (08:40→22:19)
[2017-08-19] MEDS: LOPRESSOR PO SCH ×2 (08:40→22:20)
[2017-08-19] MEDS: CARAFATE PO SCH ×3 (11:33→22:20)
[2017-08-19] MEDS: SEROQUEL PO SCH (22:18)
[2017-08-19] MEDS: AMBIEN PO SCH (22:19)
[2017-08-19] MEDS: ATARAX PO SCH (22:19)
[2017-08-20 05:29] LABS: BASOPHILS % (AUTO) 0.4 % (0.0-3.0); EOSINOPHILS # (AUTO) 0.2 K/ul (0.0-0.7); HEMATOCRIT 32.2 % (37.0-47.0); IMMATURE GRANULOCYTE % (AUTO) 0.4 % (0.0-5.0); LYMPHOCYTES # (AUTO) 2.2 K/uL (0.60-3.4); LYMPHOCYTES % (AUTO) 41.4 (10.0-50.0); MEAN CORPUSCULAR HEMOGLOBIN 30.7 pg (27.0-31.0); MEAN CORPUSCULAR HGB CONC 34.2 (31.8-35.4); MEAN CORPUSCULAR VOLUME 89.9 fl (81.0-99.0); MONOCYTES # (AUTO) 0.3 K/uL (0.4-2.0); NEUTROPHILS # (AUTO) 2.6 K/ul (2.0-6.9); NEUTROPHILS % (AUTO) 48.8; PLATELET COUNT 147 10^3/uL (140-440); RED BLOOD COUNT 3.58 10^6/ul (4.20-5.40); WHITE BLOOD COUNT 5.31 K/ul (4.6-10.2)
[2017-08-20 05:34] VITALS: BP 102/64; TEMP 97.6
[2017-08-20] MEDS: PRILOSEC PO SCH (05:47)
[2017-08-20] MEDS: CARAFATE PO SCH (05:47)
[2017-08-20 05:50] LABS: ALBUMIN/GLOBULIN RATIO 0.94; ANION GAP 7.1; BILIRUBIN,TOTAL 0.33 mg/dL (0.00-1.20); BUN/CREATININE RATIO 13.09; CREATININE 0.84 mg/dL (0.60-1.30); POTASSIUM 4.1 mmol/L (3.5-5.10); TOTAL PROTEIN 6.2 g/dL (5.8-8.1)
[2017-08-20] MEDS: SYMBICORT 160-4.5 MCG INHALER IH SCH (09:40)
[2017-08-20] MEDS: LOPRESSOR PO SCH (09:40)
[2017-08-20] MEDS: ZESTRIL PO SCH (09:40)
[2017-08-20] MEDS: FLEXERIL PO SCH (09:41)
[2017-08-20] MEDS: NORCO 10-325 PO SCH (09:41)
[2017-08-20] MEDS: ZOFRAN TAB PO SCH (09:41)
[2017-08-20] MEDS: NEURONTIN PO SCH (09:41)
[2017-08-20] MEDS: BENTYL PO SCH (09:41)
[2017-08-20] MEDS: PROTONIX IV IVP SCH (09:41)
--- NOTE | 2017-09-25 10:07 | PN ---
DATE OF SERVICE: 08/19/17 SUBJECTIVE: The patient is admitted with intractable nausea and vomiting. The patient has been taking Zofran and Phenergan, not helping. She says she has been not able to eat. The patient had a reverse reaction with Prolia. The patient's is with her near the bed. REVIEW OF SYSTEMS: CONSTITUTIONAL: No fever, no chills. HEENT: Normal. ENDOCRINE: No weight gain, no weight loss. CVS: No angina symptoms. No CHF symptoms. No palpitations. No atypical chest pain for CAD. No shortness of breath. No PND, no orthopnea. RESPIRATORY: No cough, no hemoptysis. GI: Nausea, vomiting. Abdomnial discomfort. : No hematuria. No polyuria. MUSCULOSKELETAL:. No joint swelling. PSYCHIATRIC: Not anxious. No depression. No suicidal thoughts. No homicidal thoughts. SKIN: Intact. No rash. PHYSICAL EXAMINATION: V/S: BP 122/74, respiratory rate 16, heart rate 62, temperature 98.1, saturation 97. HEENT: Normocephalic, atraumatic. Mucosa dry. NECK: Supple. No JVD, no carotid bruit. No lymphadenopathy. LUNGS: Bilateral entry, decreased and clear to auscultation. No rales or rhonchi. HEART: S1, S2 normal. No S3. No murmur, gallop or regurgitation. ABDOMEN: Epigastric discomfort. Bowel sounds active. No rigidity. No rebound or guarding. No CVA tenderness. EXTREMITIES: No clubbing, cyanosis or pedal edema. MUSCULOSKELETAL: No joint swelling. NEUROLOGIC: Awake, alert, oriented times three. No focal deficit. LYMPHATIC: No lymph nodes palpable. SKIN: Intact. LABS: White count 5.0, hemoglobin 12.3, hematocrit 36.1, platelet count 170. Sodium 140, potassium 4.0, chloride 110, bicarb 23, BUN 11, creatinine 0.87. ASSESSMENT: 1. INTRACTABLE NAUSEA AND VOMITING 2. ACUTE GASTRITIS, RECENT REACTION TO MEDICATION PROLIA 3. HISTORY OF HYPERTENSION 4. DYSLIPIDEMIA 5. BIPOLAR DISORDER 6. DEPRESSION 7. ANXIETY 8. OSTEOARTHRITIS 9. DJD SPINE PLAN: 1. Continue Protonix 40 mg p.o. b.i.d. 2. Will add Carafate 1 gm a.c. and h.s. 3. Liquid diet 4. Daily I & O's 5. Breathing treatment 6. Will follow with the patient in daily rounds TIME SPENT: More than 35 minutes MTDD
--- NOTE | 2017-09-25 10:20 | DS ---
DATE OF SERVICE: 08/20/17 FINAL DIAGNOSIS: 1. INTRACTABLE NAUSEA AND VOMITING 2. ACUTE GASTRITIS 3. HISTORY OF HYPERTENSION 4. DYSLIPIDEMIA 5. BIPOLAR 6. PERMANENT PACEMAKER 7. SEIZURE DISORDER 8. COPD 9. SLEEP APNEA 10. POLYSUBSTANCE USE 11. CHRONIC KIDNEY DISEASE 12. OSTEOPOROSIS 13. NICOTINE USE DISCHARGE INSTRUCTIONS: Followup appointment: Followup with Dr. Pennington for endoscopy. MEDICATIONS AT DISCHARGE: Continue Albuterol Symbicort Cyclobenzeprine Dicyclomine Lomotil Gabapentin Hydrocodone Hydroxyzine Lisinopril Metoprolol Prilosec Phenergan Seroquel Carafate Zofran Ambien NEW PRESCRIPTIONS: Carafate 1 gm a.c. and h.s. Lomotil p.r.n. for loose stools DIET INSTRUCTIONS: Soft diet for 3 to 4 days; increase hydration ACTIVITY: As much as tolerated. SMOKING: Smoker DISEASE SPECIFIC EDUCATION: Gastritis, dehydration discussed HOSPITAL COURSE: 61-year-old female came to the office complaining of severe nausea and vomiting not able to keep anything down. It all started almost 10 days ago on 08/08/17 when she went to the emergency room with nausea, vomiting and abdominal pain. After having Prolia subQ shot for the osteoporosis, she started having nausea and vomiting. She was evaluated and checked in the emergency room. CT scan was negative. The patient was released from the emergency room. The patient was given Phenergan but it was not helping. She continued to have vomiting, unable to keep anything down. She came to the office. At that time, the patient was directly admitted from the [facility] to the hospital. She was started on IV fluids, Phenergan, Zofran, IV Protonix and Carafate was given. With the given treatment, the patient was settling down and clear liquids were given. Amylase, lipase were normal, [address] abdomen was normal. She had a severe case of gastritis. Gradually, the patient's stomach was settling down, the patient was up and about walking, going out to smoke. No nausea, vomiting, was able to keep clear liquids down and advanced diet to soft diet which she was able to keep down. As the patient was doing fine, up and about and patient had appointment with Dr. Pennington, she was discharged home. TIME SPENT: MORE THAN 65 MINUTES MTDD
--- NOTE | 2017-09-25 10:28 | PN ---
DATE OF SERVICE: 08/19/17 SUBJECTIVE: The patient is admitted with severe gastroenteritis after having a reaction to Prolia. With Zofran and Protonix the patient is feeling a little better. She was able to keep soft diet down. The patient's is in the room. REVIEW OF SYSTEMS: CONSTITUTIONAL: No fever, no chills. HEENT: Normal. ENDOCRINE: No weight gain, no weight loss. CVS: No angina symptoms. No CHF symptoms. No palpitations. No atypical chest pain for CAD. No shortness of breath. No PND, no orthopnea. RESPIRATORY: No cough, no hemoptysis. GI: Abdominal discomfort. No nausea, no vomiting. : No hematuria. No polyuria. MUSCULOSKELETAL:. No joint swelling. PSYCHIATRIC: Not anxious. No depression. No suicidal thoughts. No homicidal thoughts. SKIN: Intact. No rash. PHYSICAL EXAMINATION: V/S: BP 111/71, respiratory rate 20, heart rate 62, temperature 98.1, saturation 96. HEENT: Normocephalic, atraumatic. Mucosa is dry. Pallor icterus. NECK: Supple. No JVD, no carotid bruit. No lymphadenopathy. LUNGS: Decreased basilar crackles. No rales or rhonchi. HEART: S1, S2 normal. No S3. No murmur, gallop or regurgitation. ABDOMEN: Epigastric discomfort present. Bowel sounds active. No rigidity. No rebound or guarding. No CVA tenderness. EXTREMITIES: No clubbing, cyanosis or pedal edema. MUSCULOSKELETAL: No joint swelling. NEUROLOGIC: Awake, alert, oriented times three. No focal deficit. LYMPHATIC: No lymph nodes palpable. SKIN: Intact. LABS: White count 5.0, hemoglobin 12.3, hematocrit 36.1, platelet count 170. Sodium 140, potassium 4.0, chloride 110, bicarb 23, BUN 11, creatinine 0.87. ASSESSMENT: 1. INTRACTABLE NAUSEA AND VOMITING, RECENT ALLERGIC REACTION TO PROLIA 2. HISTORY OF COPD 3. CAD 4. HYPERTENSION 5. PERMANENT PACEMAKER 6. SEIZURE DISORDER 7. DEPRESSION AND ANXIETY PLAN: 1. Continue IV fluids 2. Zofran 3. Protonix 4. Advance diet as tolerated 5. Out of bed to chair 6. Activity as tolerated TIME SPENT: More than 55 minutes MTDD
== END 2017-08-20 10:59 | disposition home or self-care (01) | DRG 392 ==
LOC: MEDSURG A 09:38
PROVIDERS: ADMIT Emergency Medicine; ATTEND Emergency Medicine
DX: R11.2 Nausea with vomiting, unspecified (principal); K29.00 Acute gastritis without bleeding; T50.995A Adverse effect of other drugs, medicaments and biological substances, initial encounter; I10 Essential (primary) hypertension; E78.5 Hyperlipidemia, unspecified; F31.9 Bipolar disorder, unspecified; G40.909 Epilepsy, unspecified, not intractable, without status epilepticus; J44.9 Chronic obstructive pulmonary disease, unspecified; G47.30 Sleep apnea, unspecified; F19.90 Other psychoactive substance use, unspecified, uncomplicated; M81.0 Age-related osteoporosis without current pathological fracture; F17.200 Nicotine dependence, unspecified, uncomplicated; Z95.0 Presence of cardiac pacemaker; Z79.899 Other long term (current) drug therapy
CPT/HCPCS: 36415; 80053; 82150; 82550; 82962; 83690; 84484; 85025; 93005; 93010; 97802

== ENCOUNTER 2017-09-12 12:21 | Emergency (ER) ==
[2017-09-12 12:25] VITALS: BP 173/102; TEMP 98; BMI 26.1
[2017-09-12] MEDS ORDERED: GI COCKTAIL PO STA (12:36)
[2017-09-12 13:04] LABS: BASOPHILS % (AUTO) 0.6 % (0.0-3.0); EOSINOPHILS % (AUTO) 0.4 % (0.0-7.0); HEMATOCRIT 34.1 % (37.0-47.0); HEMOGLOBIN 11.9 g/dl (12.0-16.0); IMMATURE GRANULOCYTE % (AUTO) 0.4 % (0.0-5.0); LYMPHOCYTES # (AUTO) 1.2 K/uL (0.60-3.4); LYMPHOCYTES % (AUTO) 23.3 (10.0-50.0); MEAN CORPUSCULAR HEMOGLOBIN 30.5 pg (27.0-31.0); MEAN CORPUSCULAR HGB CONC 34.9 (31.8-35.4); MEAN CORPUSCULAR VOLUME 87.4 fl (81.0-99.0); MONOCYTES # (AUTO) 0.3 K/uL (0.4-2.0); MONOCYTES % (AUTO) 5.4 (0-10); NEUTROPHILS # (AUTO) 3.7 K/ul (2.0-6.9); NEUTROPHILS % (AUTO) 69.9; PLATELET COUNT 148 10^3/uL (140-440); WHITE BLOOD COUNT 5.33 K/ul (4.6-10.2)
--- NOTE | 2017-09-12 13:12 | CT ---
EXAM: CT abdomen and pelvis without contrast HISTORY: Stomach pain for 3 weeks TECHNIQUE: Multi-slice transaxial helical with coronal and sagittal reformed images COMPARISON: CT abdomen/pelvis from 08/18/2017 FINDINGS: The lung bases are free of acute airspace or interstitial opacities. The heart size is nor mal. There are no pericardial or pleural effusions. Minimal dependent atelectasis is noted. A dual c hamber pacemaker is in place. The hepatic attenuation is normal relative to the spleen. The gallbladder is present without biliary dilatation. Calcified granulomas are detected in the otherwise normal spleen. The adrenal glands h ave normal attenuation and morphology. The pancreas is grossly normal. There are areas of renal cortical thinning in both kidneys. Surgical clips are suggested at the infe rior pole of the left kidney. No focal masses or nephrolithiasis are evident. The ureters have norm al caliber. The nonopacified bladder is grossly normal. The uterus and adnexa are grossly normal. A previous leander colectomy has been performed in the past with reanastomosis. No intestinal distensio n is appreciated. No lymphadenopathy or ascites are evident. The abdominal aorta is atherosclerotic with normal caliber. The bones are free of suspicious osteolytic or osteoblastic lesions. Old healed right rib fractures a re noted. An old right anterior acetabular column and inferior pubic ramus fracture are also detecte d. A left hip fracture has been internally stabilized in the past. No acute fractures are appreciat ed. There are mild chronic compression deformities at L3, T11, and T12. IMPRESSION: 1. Normal abdominal gas pattern. Previous partial colectomy with reanastomosis. 2. Pacemaker and ASCVD. 3. No lymphadenopathy or ascites. 4. Multiple old healed fractures.
[2017-09-12 13:24] LABS: ALBUMIN 3.5 g/dL (3.4-5.0); ALBUMIN/GLOBULIN RATIO 1.03; ANION GAP 11.6; BILIRUBIN,TOTAL 0.29 mg/dL (0.00-1.20); BUN/CREATININE RATIO 9.19; CALCIUM 8.4 mg/dL (8.2-10.2); CREATININE 0.87 mg/dL (0.60-1.30); POTASSIUM 3.6 mmol/L (3.5-5.10); TOTAL PROTEIN 6.9 g/dL (5.8-8.1)
--- NOTE | 2017-09-12 13:30 | ED.PDOC ---
General ED Provider: Dr. ZEYNEP EPSTEIN Chief Complaint: Abdominal Pain Stated Complaint: abdominal pain Time Seen by Physician: 12:33 (this a chronic issue) Mode of Arrival: Walk-In Information Source: Patient Exam Limitations: No limitations Primary Care Provider: PHYLLIS ORANTESLinda Referred to ED by: Other (negative injury ) Nursing and Triage Documentation Reviewed and Agree: Yes (seen with nursing staff ) GI Complaint Exam - Abdominal Pain Complaint/Exam Onset: Gradual (EPIGASTRIC TODAY) Duration: today morning Symptoms Are: Still present Timing: Intermittent Initial Severity: Mild Current Severity: Mild Location of Pain: Epigastric Radiates To: Denies: Chest, Back, Flank Character: Reports: Burning Aggravating: Reports: Food Alleviating: Reports: Medication Associated Signs and Symptoms: Denies: Diaphoresis, Fever, Cough, Chest pain, Dizziness, Back pain, Constipation, Blood in stool, Dysuria, Urinary frequency, Decreased urine output, Decreased appetite, Vaginal bleeding, Vaginal discharge , Nausea, Vomiting, Diarrhea, Sore throat, Decreased activity Related History: Reports: Similar episode (GERD) AAA Risk Factors: Reports: Hypertension Cardiac Risk Factors: Reports: Hypertension Ectopic Risk Factors: Reports: None Ovarian Torsion Risk Factors: Reports: None Surgical Obstruction Risk Factors: Reports: None Related Surgical History: Reports: None Patient Rh Status: Unknown Abdominal Findings: Present: None Differential Diagnoses: Diverticulitis, Other (GERD) Quality Indicator For Non-Traumatic Chest Pain/Syncope: EKG Performed Review of Systems - Review Of Systems Constitutional: Reports: No symptoms Eyes: Reports: No symptoms Ears, Nose, Mouth, Throat: Reports: No symptoms Respiratory: Reports: No symptoms Cardiac: Reports: No symptoms GI: Reports: Abdominal pain (EPIGASTRIC ) : Reports: No symptoms Musculoskeletal: Reports: No symptoms Skin: Reports: No symptoms Neurological: Reports: No symptoms Endocrine: Reports: No symptoms Hematologic/Lymphatic: Reports: No symptoms All Other Systems: Reviewed and Negative Past Medical History - Past Medical History Previously Healthy: No Endocrine: Reports: None Cardiovascular: Reports: Hypertension Respiratory: Reports: COPD, Asthma, Pneumonia Hematological: Reports: Anemia Gastrointestinal: Reports: GERD Genitourinary: Reports: CKD Neuro/Psych: Reports: CVA, Schizophrenia Musculoskeletal: Reports: Arthritis (Rheumatoid ), Other Cancer: Reports: Unknown Last Menstrual Period: N/A Other Pertinent Past Medical History: colon resection - Surgical History General Surgical History: Reports: Appendectomy, Pacemaker, Orthopedic (LEFT LEG FRACTURE,lorne in leg leg and hip SURGERY), Other (KIDNEY, COLON RESECTION, LEFT LEG) - Family History Family History: Reports: Unknown - Social History Smoking Status: Current every day smoker Hx Substance Use: No Alcohol Screening: None - Immunizations Tetanus Shot up to Date: Yes Physical Exam - Physical Exam Appearance: Well-appearing, No pain distress, Well-nourished Eyes: SETH, EOMI, Conjunctiva clear ENT: Ears normal, Nose normal, Oropharynx normal Respiratory: Airway patent, Breath sounds clear, Breath sounds equal, Respirations nonlabored Cardiovascular: RRR, Pulses normal, No rub, No murmur GI/: Soft, Nontender, No masses, Bowel sounds normal, No Organomegaly Musculoskeletal: Normal strength, ROM intact, No edema, No calf tenderness Skin: Warm, Dry, Normal color Neurological: Sensation intact, Motor intact, Reflexes intact, Cranial nerves intact, Alert, Oriented Psychiatric: Affect appropriate, Mood appropriate Re-Evaluation - Re-Evaluation Time of Re-Evaluation: 12:50 Status: Improved Vital Signs Stable: Yes Pain Level: 0 POST GI COCKTAIL Appearance: NAD Lungs: Clear Skin: Warm and Dry Neuro: Alert and Oriented X3 CV: RRR - Re-Evaluation Time of Re-Evaluation: 13:32 Status: Improved Vital Signs Stable: Yes Pain Level: 0 Appearance: NAD Skin: Warm and Dry Neuro: Alert and Oriented X3 CV: RRR (100 RESPONSE TO GI COCKTAIL) Critical Care Note - Critical Care Note Total Time (mins): 0 Course - Course Hematology/Chemistry: 09/12/17 12:50 Orders, Labs, Meds: Lab Review 09/12/17 12:50 WBC 5.33 RBC 3.90 L Hgb 11.9 L Hct 34.1 L MCV 87.4 MCH 30.5 MCHC 34.9 RDW Coeff of Lynda 13.2 Plt Count 148 Immature Gran % (Auto) 0.4 Neut % (Auto) 69.9 Lymph % (Auto) 23.3 [place] % (Auto) 5.4 Eos % (Auto) 0.4 Baso % (Auto) 0.6 Immature Gran # (Auto) 0.0 Neut # 3.7 Lymph # 1.2 [place] # 0.3 L Eos # 0.0 Baso # 0.0 Orders Category Date Time Status AMYLASE Stat LAB 09/12/17 12:50 Received CBC W/ AUTO DIFF Stat LAB 09/12/17 12:50 Completed COMPREHENSIVE METABOLIC PANEL Stat LAB 09/12/17 12:50 Received LIPASE Stat LAB 09/12/17 12:50 Received URINALYSIS C & S IF INDICATED Stat LAB 09/12/17 12:36 Uncollected Mag-Al Plus//Lidocaine [Gi Cocktail] MEDS 09/12/17 12:36 Discontinued 30 ml PO ONCE STA CT ABDOMEN/PELVIS WO CONTRAST Stat RADS 09/12/17 12:36 Completed Medications Discontinued Medications Generic Name Dose Route Start Last Admin Trade Name Freq PRN Reason Stop Dose Admin Al Hydroxide/Mg Hydroxide 30 ml 09/12/17 12:36 09/12/17 13:08 Gi Cocktail PO 09/12/17 12:37 30 ml ONCE STA Administration Vital Signs: Temp Pulse Resp BP Pulse Ox 09/12/17 12:22 98.0 F 81 18 173/102 H 95 Departure - Departure Time of Disposition: 14:00 (PT SLEEPING COMFOTTABLY 1:30 PM PRESENT KOBI SUSAN) Disposition: HOME SELF-CARE Discharge Problem: Abdominal pain Instructions: Abdominal Pain (ED) Condition: Good Pt referred to PMD for follow-up: Yes Additional Instructions: Please call your Family Physician as soon as possible to schedule a follow-up appointment. Allergies/Adverse Reactions: Allergies haloperidol [From Haldol] Allergy (Severe, Verified 09/12/17 12:26) swelling in mouth Pt to get medical alert necklace haloperidol lactate [From Haldol] Allergy (Severe, Verified 09/12/17 12:26) swelling in mouth Pt to get medical alert necklace olanzapine [From Zyprexa] Adverse Reaction (Severe, Verified 09/12/17 12:26) Hives oxytetracycline [From Terramycin] Adverse Reaction (Severe, Verified 09/12/17 12 :26) Hives oxytetracycline HCl [From Terramycin] Adverse Reaction (Severe, Verified 12:26) Hives Sulfa (Sulfonamide Antibiotics) Adverse Reaction (Verified 09/12/17 12:26) Home Medications: Ambulatory Orders Hydrocodone Bit/Acetaminophen [Lortab 10-500] 1 tab PO TID #1 11/02/14 Budesonide/Formoterol Fumarate [Symbicort 160-4.5 Mcg Inhaler] 2 puff IH BID Quetiapine Fumarate [Seroquel] 600 mg PO BEDTIME 10/29/16 Cyclobenzaprine HCl 10 mg PO BID 11/21/16 Dicyclomine HCl 10 mg PO TID 11/21/16 Omeprazole [Prilosec] 20 mg PO QDAC 11/21/16 Zolpidem Tartrate [Ambien] 5 mg PO BEDTIME 11/21/16 Hydroxyzine HCl 25 mg PO BEDTIME 12/24/16 Diphenoxylate HCl/Atropine [Lomotil 2.5-0.025 mg Tablet] 1 each PO TID PRN #15 tablet 08/15/17 Promethazine HCl [Phenergan Tab] 25 mg PO Q6H PRN #15 tablet 08/15/17
== END 2017-09-12 13:45 | disposition home or self-care (01) ==
LOC: ED 12:21
DX: R10.13 Epigastric pain (principal); I10 Essential (primary) hypertension; D64.9 Anemia, unspecified; N18.9 Chronic kidney disease, unspecified; F17.210 Nicotine dependence, cigarettes, uncomplicated; Z79.899 Other long term (current) drug therapy
CPT/HCPCS: 36415; 80053; 82150; 83690; 85025; 99284

== ENCOUNTER 2017-09-13 11:19 | Emergency (ER) ==
[2017-09-13 11:26] VITALS: BP 177/105; TEMP 98.7; BMI 27.8
[2017-09-13] MEDS ORDERED: GI COCKTAIL PO STA (11:32)
[2017-09-13] MEDS ORDERED: ZOFRAN 4 MG/2 ML IM STA (11:32)
[2017-09-13 11:51] LABS: BASOPHILS % (AUTO) 0.5 % (0.0-3.0); EOSINOPHILS # (AUTO) 0.1 K/ul (0.0-0.7); EOSINOPHILS % (AUTO) 1.1 % (0.0-7.0); HEMATOCRIT 35.1 % (37.0-47.0); HEMOGLOBIN 12.2 g/dl (12.0-16.0); IMMATURE GRANULOCYTE % (AUTO) 0.2 % (0.0-5.0); LYMPHOCYTES # (AUTO) 1.4 K/uL (0.60-3.4); LYMPHOCYTES % (AUTO) 31.9 (10.0-50.0); MEAN CORPUSCULAR HEMOGLOBIN 30.3 pg (27.0-31.0); MEAN CORPUSCULAR HGB CONC 34.8 (31.8-35.4); MEAN CORPUSCULAR VOLUME 87.3 fl (81.0-99.0); MONOCYTES # (AUTO) 0.4 K/uL (0.4-2.0); MONOCYTES % (AUTO) 8.1 (0-10); NEUTROPHILS # (AUTO) 2.6 K/ul (2.0-6.9); NEUTROPHILS % (AUTO) 58.2; PLATELET COUNT 150 10^3/uL (140-440); RED BLOOD COUNT 4.02 10^6/ul (4.20-5.40); WHITE BLOOD COUNT 4.42 K/ul (4.6-10.2)
--- NOTE | 2017-09-13 12:00 | ED.PDOC ---
General ED Provider: Dr. PHYLLIS JIMENEZ Chief Complaint: Nausea/Vomiting Stated Complaint: Hurting in epigastric area, its been on and off for 6 weeks, had EGD which showed Gastritis. Time Seen by Physician: 11:58 Mode of Arrival: Walk-In Information Source: Patient, Family Primary Care Provider: PHYLLIS JIMENEZ-[facility] Nursing and Triage Documentation Reviewed and Agree: Yes GI Complaint Exam - Abdominal Pain Complaint/Exam Onset: Gradual Symptoms Are: Still present Timing: Constant Initial Severity: Moderate Current Severity: Severe Location of Pain: Epigastric Radiates To: Reports: Back Character: Reports: Sharp, Aching, Throbbing Aggravating: Reports: Food Alleviating: Reports: None Associated Signs and Symptoms: Reports: Nausea, Vomiting. Denies: Diaphoresis, Fever, Cough, Chest pain, Dizziness, Back pain, Constipation, Blood in stool, Dysuria, Urinary frequency, Decreased urine output, Decreased appetite, Vaginal bleeding, Vaginal discharge, Diarrhea, Sore throat, Decreased activity Related History: Reports: Similar episode AAA Risk Factors: Reports: None Cardiac Risk Factors: Reports: None Ectopic Risk Factors: Reports: None Ovarian Torsion Risk Factors: Reports: None Surgical Obstruction Risk Factors: Reports: None Related Surgical History: Reports: None Patient Rh Status: Unknown Abdominal Findings: Absent: Pulsatile mass, Abdominal distention, Unequal femoral pulses Differential Diagnoses: PUD Review of Systems - Review Of Systems Constitutional: Reports: No symptoms Eyes: Reports: No symptoms Ears, Nose, Mouth, Throat: Reports: No symptoms Respiratory: Reports: No symptoms Cardiac: Reports: No symptoms GI: Reports: Abdominal pain, Nausea, Vomiting : Reports: No symptoms Musculoskeletal: Reports: No symptoms Skin: Reports: No symptoms Neurological: Reports: No symptoms Endocrine: Reports: No symptoms Hematologic/Lymphatic: Reports: No symptoms All Other Systems: Reviewed and Negative Past Medical History - Past Medical History Previously Healthy: No Endocrine: Reports: None Cardiovascular: Reports: Hypertension Respiratory: Reports: COPD, Asthma, Pneumonia Hematological: Reports: Anemia Gastrointestinal: Reports: GERD Genitourinary: Reports: CKD Neuro/Psych: Reports: CVA, Schizophrenia Musculoskeletal: Reports: Arthritis (Rheumatoid ), Other Cancer: Reports: Unknown Last Menstrual Period: na Other Pertinent Past Medical History: colon resection - Surgical History General Surgical History: Reports: Appendectomy, Pacemaker, Orthopedic (LEFT LEG FRACTURE,lorne in leg leg and hip SURGERY), Other (KIDNEY, COLON RESECTION, LEFT LEG) - Family History Family History: Reports: Unknown - Social History Smoking Status: Current every day smoker Smoking Cessation Counseling Time: > 3 min - 10 min Hx Substance Use: No Alcohol Screening: None - Immunizations Tetanus Shot up to Date: Yes Physical Exam - Physical Exam Appearance: Ill-appearing Eyes: SETH, EOMI, Conjunctiva clear ENT: Ears normal, Nose normal, Oropharynx normal Respiratory: Airway patent, Breath sounds clear, Breath sounds equal, Respirations nonlabored Cardiovascular: RRR, Pulses normal, No rub, No murmur GI/: Tender Musculoskeletal: Normal strength, ROM intact, No edema, No calf tenderness Skin: Warm, Dry, Normal color Neurological: Sensation intact, Motor intact, Reflexes intact, Cranial nerves intact, Alert, Oriented Psychiatric: Affect appropriate, Mood appropriate Interpretation - Radiology Interpretation Radiology Interpretation By: Radiologist Radiology Results: Negative Exam Interpreted: CT Scan Re-Evaluation - Re-Evaluation Time of Re-Evaluation: 13:02 Status: Improved Critical Care Note - Critical Care Note Total Time (mins): 30 Course - Course Hematology/Chemistry: 09/13/17 11:45 09/13/17 11:45 Orders, Labs, Meds: Lab Review 09/13/17 09/13/17 11:45 11:45 WBC 4.42 L RBC 4.02 L Hgb 12.2 Hct 35.1 L MCV 87.3 MCH 30.3 MCHC 34.8 RDW Coeff of Lynda 13.1 Plt Count 150 Immature Gran % (Auto) 0.2 Neut % (Auto) 58.2 Lymph % (Auto) 31.9 [place] % (Auto) 8.1 Eos % (Auto) 1.1 Baso % (Auto) 0.5 Immature Gran # (Auto) 0.0 Neut # 2.6 Lymph # 1.4 [place] # 0.4 Eos # 0.1 Baso # 0.0 Sodium 140 Potassium 3.3 L Chloride 109 H Carbon Dioxide 23 Anion Gap 11.3 BUN 7 Creatinine 0.82 Estimated GFR (MDRD) 71.00 BUN/Creatinine Ratio 8.53 Glucose 107 Calcium 8.4 Total Bilirubin 0.37 AST 15 ALT 14 Alkaline Phosphatase 79 Total Protein 7.1 Albumin 3.5 Globulin 3.6 Albumin/Globulin Ratio 0.97 Amylase 58 D Lipase 20 Orders Category Date Time Status AMYLASE Stat LAB 09/13/17 11:45 Completed CBC W/ AUTO DIFF Stat LAB 09/13/17 11:45 Completed COMPREHENSIVE METABOLIC PANEL Stat LAB 09/13/17 11:45 Completed LIPASE Stat LAB 09/13/17 11:45 Completed Mag-Al Plus//Lidocaine [Gi Cocktail] MEDS 09/13/17 11:32 Discontinued 30 ml PO ONCE STA Meperidine HCl/Pf [Demerol 25 mg/ml Vial] MEDS 09/13/17 11:32 Discontinued 25 mg IM ONCE STA Ondansetron HCl/Pf [Zofran 4 mg/2 ml] MEDS 09/13/17 11:32 Discontinued 4 mg IM ONCE STA CT ABDOMEN/PELVIS WO CONTRAST Stat RADS 09/13/17 11:32 Completed Medications Discontinued Medications Generic Name Dose Route Start Last Admin Trade Name Freq PRN Reason Stop Dose Admin Al Hydroxide/Mg Hydroxide 30 ml 09/13/17 11:32 09/13/17 12:01 Gi Cocktail PO 09/13/17 11:33 30 ml ONCE STA Administration Meperidine HCl 25 mg 09/13/17 11:32 09/13/17 12:02 Demerol 25 Mg/Ml Vial IM 09/13/17 11:33 25 mg ONCE STA Administration Ondansetron HCl 4 mg 09/13/17 11:32 09/13/17 12:25 Zofran 4 Mg/2 Ml IM 09/13/17 11:33 4 mg ONCE STA Administration Vital Signs: Temp Pulse Resp BP Pulse Ox 09/13/17 11:20 98.7 F 75 22 177/105 H 98 Departure - Departure Time of Disposition: 13:02 Disposition: HOME SELF-CARE Discharge Problem: Gastritis Qualifiers: Gastritis type: other gastritis Chronicity: chronic Gastritis bleeding: without bleeding Qualified Code(s): K29.50 - Unspecified chronic gastritis without bleeding Instructions: Gastritis (ED) Condition: Good Pt referred to PMD for follow-up: Yes Additional Instructions: SOFT DIET NO SPICY FOOD, NO FRIED FOOD. F/U [facility] Prescriptions: Mag-Al Plus//Lidocaine [Gi Cocktail] 30 ml PO BID #1 bottle Sucralfate Susp [Carafate] 1 gm PO ACHS #1 bottle Allergies/Adverse Reactions: Allergies haloperidol [From Haldol] Allergy (Severe, Verified 09/12/17 12:26) swelling in mouth Pt to get medical alert necklace haloperidol lactate [From Haldol] Allergy (Severe, Verified 09/12/17 12:26) swelling in mouth Pt to get medical alert necklace olanzapine [From Zyprexa] Adverse Reaction (Severe, Verified 09/12/17 12:26) Hives oxytetracycline [From Terramycin] Adverse Reaction (Severe, Verified 09/12/17 12 :26) Hives oxytetracycline HCl [From Terramycin] Adverse Reaction (Severe, Verified 12:26) Hives Sulfa (Sulfonamide Antibiotics) Adverse Reaction (Verified 09/12/17 12:26) Home Medications: Ambulatory Orders Hydrocodone Bit/Acetaminophen [Lortab 10-500] 1 tab PO TID #1 11/02/14 Budesonide/Formoterol Fumarate [Symbicort 160-4.5 Mcg Inhaler] 2 puff IH BID Quetiapine Fumarate [Seroquel] 600 mg PO BEDTIME 10/29/16 Cyclobenzaprine HCl 10 mg PO BID 11/21/16 Dicyclomine HCl 10 mg PO TID 11/21/16 Omeprazole [Prilosec] 20 mg PO QDAC 11/21/16 Zolpidem Tartrate [Ambien] 5 mg PO BEDTIME 11/21/16 Hydroxyzine HCl 25 mg PO BEDTIME 12/24/16 Diphenoxylate HCl/Atropine [Lomotil 2.5-0.025 mg Tablet] 1 each PO TID PRN #15 tablet 08/15/17 Promethazine HCl [Phenergan Tab] 25 mg PO Q6H PRN #15 tablet 08/15/17 Mag-Al Plus//Lidocaine [Gi Cocktail] 30 ml PO BID #1 bottle 09/13/17 Sucralfate Susp [Carafate] 1 gm PO ACHS #1 bottle 09/13/17 Disposition Discussed With: Patient, Family
[2017-09-13] MEDS: DEMEROL 25 MG/ML VIAL IM STA (12:02)
[2017-09-13 12:11] LABS: ALBUMIN 3.5 g/dL (3.4-5.0); ALBUMIN/GLOBULIN RATIO 0.97; ANION GAP 11.3; BILIRUBIN,TOTAL 0.37 mg/dL (0.00-1.20); BUN/CREATININE RATIO 8.53; CALCIUM 8.4 mg/dL (8.2-10.2); CREATININE 0.82 mg/dL (0.60-1.30); POTASSIUM 3.3 mmol/L (3.5-5.10); TOTAL PROTEIN 7.1 g/dL (5.8-8.1)
--- NOTE | 2017-09-13 12:45 | CT ---
Exam: CT of the abdomen pelvis without intravenous contrast. Comparison: 09/12/2017. Reason for exam: Epigastric pain. FINDINGS: There is mild atelectasis without pleural effusion, or focal consolidation in the partiall y imaged lung bases. Image interpretation is limited by the lack of intravenous contrast administration. The liver, gallbladder, spleen, adrenal glands, and pancreas appear grossly unremarkable within the l imitations of a noncontrasted study. No hydronephrosis, hydroureter, or nephrolithiasis is seen in either kidney with cortical thinning bi laterally. There are surgical clips inferior to the left kidney. Atherosclerotic disease is seen within the aorta and distal arterial vasculature. No focal small bowel dilatation or transition point. The appendix is not seen although no inflammatory changes are seen in the expected location of the ap pendix. No intra-abdominal free air or pelvic free fluid. Surgical changes are seen after an partial colectom y. The bladder appears grossly unremarkable. Similar appearing old right acetabulum and inferior pubic ramus fracture. Operative changes are seen after left hip fixation. There is similar appearing compression deformitie s in the T11, T12, and L3 vertebral bodies. Impression: 1. No acute inflammatory findings are seen within the abdomen or pelvis. Evaluation is limited by the lack of intravenous contrast administration. 2. Similar appearing operative changes within the abdomen and pelvis. 3. Multiple healed/healing fractures. Report faxed at 1240 hours on 09/13/2017
== END 2017-09-13 13:32 | disposition home or self-care (01) ==
LOC: ED 11:19
DX: K29.50 Unspecified chronic gastritis without bleeding (principal); F17.210 Nicotine dependence, cigarettes, uncomplicated
CPT/HCPCS: 36415; 80053; 82150; 83690; 85025; 96372; 99283

== ENCOUNTER 2017-09-15 15:35 | Emergency (ER) ==
[2017-09-15 15:41] VITALS: TEMP 99.4; BMI 27.1
[2017-09-15] MEDS ORDERED: ZOFRAN 4 MG/2 ML IM STA (16:06)
[2017-09-15] MEDS ORDERED: GI COCKTAIL PO STA (16:07)
[2017-09-15] MEDS ORDERED: PHENERGAN 25 MG/ML VIAL IM STA (16:16)
[2017-09-15 16:36] LABS: BASOPHILS % (AUTO) 0.3 % (0.0-3.0); EOSINOPHILS # (AUTO) 0.1 K/ul (0.0-0.7); EOSINOPHILS % (AUTO) 1.8 % (0.0-7.0); HEMATOCRIT 35.3 % (37.0-47.0); HEMOGLOBIN 12.1 g/dl (12.0-16.0); IMMATURE GRANULOCYTE % (AUTO) 0.3 % (0.0-5.0); LYMPHOCYTES # (AUTO) 1.4 K/uL (0.60-3.4); LYMPHOCYTES % (AUTO) 20.4 (10.0-50.0); MEAN CORPUSCULAR HEMOGLOBIN 30.3 pg (27.0-31.0); MEAN CORPUSCULAR HGB CONC 34.3 (31.8-35.4); MEAN CORPUSCULAR VOLUME 88.5 fl (81.0-99.0); MONOCYTES # (AUTO) 0.5 K/uL (0.4-2.0); MONOCYTES % (AUTO) 7.2 (0-10); NEUTROPHILS # (AUTO) 4.7 K/ul (2.0-6.9); PLATELET COUNT 167 10^3/uL (140-440); RED BLOOD COUNT 3.99 10^6/ul (4.20-5.40); WHITE BLOOD COUNT 6.77 K/ul (4.6-10.2)
--- NOTE | 2017-09-15 17:00 | CT ---
EXAM: CT ABDOMEN AND PELVIS HISTORY: Abdominal pain, nausea, vomiting and diarrhea. TECHNIQUE: CT abdomen and pelvis without intravenous contrast. Images were reconstructed using 5 mm section thickness. Reformations were prepared. COMPARISON: 2 days back FINDINGS: Diagnostic limitations exist without including contrast enhanced images. No focal hepatic lesions. Splenic calcifications consistent with old granulomatous disease. Gallbladder is decompressed with p ossible mild wall thickening. Pancreas and adrenal glands within normal limits. Vascular calcificat ions are noted. No hydronephrosis or evidence of ureteral obstruction. No gastric distension. The patient is post appendectomy. Apparent postop changes of the colon. Non obstructive bowel gas pattern. Uterus and urinary bladder are within normal limits. No ascites or i nflammatory infiltration of the abdominal fat. There is a tiny fatty supraumbilical ventral hernia with a transverse neck of about 1 cm stable since previous exam. Bones appear demineralized. Early compression fractures of the lower thoracic spine are stable. No fractures of the ribs are redemonstrated. Possible insufficiency fracture of the ri ght sacral body unchanged. Left hip prosthesis. 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 Healing fractures of the right pubic bones. Lung bases are free of acute infiltrate. No pneumoper itoneum. IMPRESSION: 1. Postop changes of the colon. Nonobstructive bowel gas pattern. No free air or ascites. 2. Decompressed gallbladder with possible mild wall thickening. Correlate with ultrasound if indica nik. 3. Vascular calcifications. 4. Significant chronic changes of the bones as described in the last paragraph of the report.
[2017-09-15 17:01] LABS: ALBUMIN 3.5 g/dL (3.4-5.0); ALBUMIN/GLOBULIN RATIO 0.88; ANION GAP 12.8; BILIRUBIN,TOTAL 0.29 mg/dL (0.00-1.20); BUN/CREATININE RATIO 11.49; CALCIUM 8.5 mg/dL (8.2-10.2); CREATININE 0.87 mg/dL (0.60-1.30); POTASSIUM 3.8 mmol/L (3.5-5.10); TOTAL PROTEIN 7.5 g/dL (5.8-8.1)
[2017-09-15 17:04] LABS: BILIRUBIN,URINE Negative (NEGATIVE); KETONES,URINE Negative (NEGATIVE); LEUKOCYTE ESTERASE ,URINE Trace (NEGATIVE); NITRITE,URINE Negative (NEGATIVE); PROTEIN,URINE Trace (NEGATIVE); URINE, BLOOD Negative (NEGATIVE)
[2017-09-15 17:09] LABS: ADD URINE MICROSCOPIC YES
--- NOTE | 2017-09-15 17:12 | ED.PDOC ---
General ED Provider: Dr. ZEYNEP EPSETIN Chief Complaint: Nausea/Vomiting Stated Complaint: chronic abdominal pain Time Seen by Physician: 15:45 (seen x 2 within past week for the same issue ) Mode of Arrival: Walk-In Information Source: Patient Exam Limitations: No limitations [facility] and Triage Documentation Reviewed and Agree: Yes (seen with nursing staff) GI Complaint Exam - Abdominal Pain Complaint/Exam Onset: Gradual Duration: THIS IS A CHRONIC EPIGASTRIC PAIN NO NEW FEATURE S NO CHEST PAIN Symptoms Are: Resolved Timing: Intermittent Initial Severity: Moderate Current Severity: Mild Location of Pain: Diffuse, Epigastric Character: Reports: Aching, Cramping Aggravating: Reports: None Alleviating: Reports: Medication Associated Signs and Symptoms: Reports: Urinary frequency, Decreased appetite. Denies: Diaphoresis, Fever, Cough, Chest pain, Dizziness, Back pain, Constipation, Blood in stool, Dysuria, Decreased urine output, Vaginal bleeding , Vaginal discharge, Nausea, Vomiting, Diarrhea, Sore throat, Decreased activity Related History: Reports: Similar episode AAA Risk Factors: Reports: Hypertension Cardiac Risk Factors: Reports: Hypertension Ectopic Risk Factors: Reports: None Ovarian Torsion Risk Factors: Reports: None Surgical Obstruction Risk Factors: Reports: None Related Surgical History: Reports: None Patient Rh Status: Unknown Abdominal Findings: Present: None Differential Diagnoses: Appendicitis, Bowel Obstruction, Constipation, Diverticulitis, Gastroenteritis, Pancreatitis, Renal Colic, Ureteral Stone Review of Systems - Review Of Systems Constitutional: Reports: No symptoms Eyes: Reports: No symptoms Ears, Nose, Mouth, Throat: Reports: No symptoms Respiratory: Reports: No symptoms Cardiac: Reports: No symptoms GI: Reports: Abdominal pain, Nausea : Reports: No symptoms Musculoskeletal: Reports: No symptoms Skin: Reports: No symptoms Neurological: Reports: No symptoms Endocrine: Reports: No symptoms Hematologic/Lymphatic: Reports: No symptoms All Other Systems: Reviewed and Negative Past Medical History - Past Medical History Previously Healthy: No Endocrine: Reports: None Cardiovascular: Reports: Hypertension Respiratory: Reports: COPD, Asthma, Pneumonia Hematological: Reports: Anemia Gastrointestinal: Reports: GERD Genitourinary: Reports: CKD Neuro/Psych: Reports: CVA, Schizophrenia Musculoskeletal: Reports: Arthritis (Rheumatoid ), Other Cancer: Reports: Unknown Last Menstrual Period: menopause Other Pertinent Past Medical History: colon resection - Surgical History General Surgical History: Reports: Appendectomy, Pacemaker, Orthopedic (LEFT LEG FRACTURE,lorne in leg leg and hip SURGERY), Other (KIDNEY, COLON RESECTION, LEFT LEG) - Family History Family History: Reports: Unknown - Social History Smoking Status: Current every day smoker Hx Substance Use: No Alcohol Screening: None Physical Exam - Physical Exam Appearance: Well-appearing, No pain distress, Well-nourished Eyes: SETH, EOMI, Conjunctiva clear ENT: Ears normal, Nose normal, Oropharynx normal Respiratory: Airway patent, Breath sounds clear, Breath sounds equal, Respirations nonlabored Cardiovascular: RRR, Pulses normal, No rub, No murmur GI/: Soft, Nontender, No masses, Bowel sounds normal, No Organomegaly Musculoskeletal: Normal strength, ROM intact, No edema, No calf tenderness Skin: Warm, Dry, Normal color Neurological: Sensation intact, Motor intact, Reflexes intact, Cranial nerves intact, Alert, Oriented Psychiatric: Affect appropriate, Mood appropriate Interpretation - Radiology Interpretation Radiology Interpretation By: Radiologist Radiology Results: No acute changes Critical Care Note - Critical Care Note Total Time (mins): 0 Course - Course Hematology/Chemistry: 09/15/17 16:30 09/15/17 16:30 Orders, Labs, Meds: Lab Review 09/15/17 09/15/17 09/15/17 16:30 16:30 16:57 WBC 6.77 RBC 3.99 L Hgb 12.1 Hct 35.3 L MCV 88.5 MCH 30.3 MCHC 34.3 RDW Coeff of Lynda 13.1 Plt Count 167 Immature Gran % (Auto) 0.3 Neut % (Auto) 70.0 Lymph % (Auto) 20.4 [place] % (Auto) 7.2 Eos % (Auto) 1.8 Baso % (Auto) 0.3 Immature Gran # (Auto) 0.0 Neut # 4.7 Lymph # 1.4 [place] # 0.5 Eos # 0.1 Baso # 0.0 Sodium 140 Potassium 3.8 Chloride 108 H Carbon Dioxide 23 Anion Gap 12.8 BUN 10 Creatinine 0.87 Estimated GFR (MDRD) 66.00 BUN/Creatinine Ratio 11.49 Glucose 104 Calcium 8.5 Total Bilirubin 0.29 AST 25 ALT 25 Alkaline Phosphatase 80 Total Protein 7.5 Albumin 3.5 Globulin 4.0 Albumin/Globulin Ratio 0.88 Urine Color Yellow Urine Clarity Clear Urine pH 7.0 Ur Specific [place] 1.015 Urine Protein Trace Urine Glucose (UA) Negative Urine Ketones Negative Urine Blood Negative Urine Nitrite Negative Urine Bilirubin Negative Urine Urobilinogen 0.2 Ur Leukocyte Esterase Trace Urine Microscopic WBC 0-2 Ur Squamous Epith Cells 5-10 Urine Mucus 1+ Orders Category Date Time Status CBC W/ AUTO DIFF Stat LAB 09/15/17 16:30 Completed COMPREHENSIVE METABOLIC PANEL Stat LAB 09/15/17 16:30 Completed URINALYSIS C & S IF INDICATED Stat LAB 09/15/17 16:57 Completed Mag-Al Plus//Lidocaine [Gi Cocktail] MEDS 09/15/17 16:07 Discontinued 30 ml PO ONCE STA Ondansetron HCl/Pf [Zofran 4 mg/2 ml] MEDS 09/15/17 16:06 Discontinued 4 mg IM ONCE STA Promethazine HCl [Phenergan 25 mg/ml Vial] MEDS 09/15/17 16:16 Discontinued 25 mg IM ONCE STA CT ABDOMEN/PELVIS WO CONTRAST Stat RADS 09/15/17 16:06 Completed Medications Discontinued Medications Generic Name Dose Route Start Last Admin Trade Name Maritza PRN Reason Stop Dose Admin Al Hydroxide/Mg Hydroxide 30 ml 09/15/17 16:07 09/15/17 16:58 Gi Cocktail PO 09/15/17 16:08 Not Given ONCE STA Ondansetron HCl 4 mg 09/15/17 16:06 Zofran 4 Mg/2 Ml IM 09/15/17 16:07 ONCE STA Promethazine HCl 25 mg 09/15/17 16:16 09/15/17 16:48 Phenergan 25 Mg/Ml Vial IM 09/15/17 16:17 25 mg ONCE STA Administration Vital Signs: Temp Pulse Resp BP Pulse Ox 09/15/17 15:35 99.4 F 69 20 180/102 H 95 Departure - Departure Time of Disposition: 17:13 Disposition: HOME SELF-CARE Discharge Problem: Nausea, Vomiting, Abdominal pain Instructions: Abdominal Pain (ED) Condition: Good Pt referred to PMD for follow-up: Yes Allergies/Adverse Reactions: Allergies haloperidol [From Haldol] Allergy (Severe, Verified 09/15/17 15:43) swelling in mouth Pt to get medical alert necklace haloperidol lactate [From Haldol] Allergy (Severe, Verified 09/15/17 15:43) swelling in mouth Pt to get medical alert necklace olanzapine [From Zyprexa] Adverse Reaction (Severe, Verified 09/15/17 15:43) Hives oxytetracycline [From Terramycin] Adverse Reaction (Severe, Verified 09/15/17 15 :43) Hives oxytetracycline HCl [From Terramycin] Adverse Reaction (Severe, Verified 15:43) Hives Sulfa (Sulfonamide Antibiotics) Adverse Reaction (Verified 09/15/17 15:43) Home Medications: Ambulatory Orders Hydrocodone Bit/Acetaminophen [Lortab 10-500] 1 tab PO TID #1 11/02/14 Budesonide/Formoterol Fumarate [Symbicort 160-4.5 Mcg Inhaler] 2 puff IH BID Quetiapine Fumarate [Seroquel] 600 mg PO BEDTIME 10/29/16 Cyclobenzaprine HCl 10 mg PO BID 11/21/16 Dicyclomine HCl 10 mg PO TID 11/21/16 Omeprazole [Prilosec] 20 mg PO QDAC 11/21/16 Zolpidem Tartrate [Ambien] 5 mg PO BEDTIME 11/21/16 Hydroxyzine HCl 25 mg PO BEDTIME 12/24/16 Diphenoxylate HCl/Atropine [Lomotil 2.5-0.025 mg Tablet] 1 each PO TID PRN #15 tablet 08/15/17 Promethazine HCl [Phenergan Tab] 25 mg PO Q6H PRN #15 tablet 08/15/17 Mag-Al Plus//Lidocaine [Gi Cocktail] 30 ml PO BID #1 bottle 09/13/17 Sucralfate Susp [Carafate] 1 gm PO ACHS #1 bottle 09/13/17
[2017-09-15 17:27] VITALS: BP 176/98
== END 2017-09-15 17:24 | disposition home or self-care (01) ==
LOC: ED 15:35
DX: R11.2 Nausea with vomiting, unspecified (principal); R10.84 Generalized abdominal pain; G89.29 Other chronic pain; I10 Essential (primary) hypertension; F17.210 Nicotine dependence, cigarettes, uncomplicated; Z79.899 Other long term (current) drug therapy
CPT/HCPCS: 36415; 80053; 81001; 85025; 96372; 99283

== ENCOUNTER 2017-10-16 07:06 | Outpatient (CLI) ==
--- NOTE | 2017-10-16 09:08 | US ---
EXAM: ULTRASOUND ABDOMEN LIMITED HISTORY: Right upper quadrant pain FINDINGS: Ultrasound abdomen, limited. Simon-scale ultrasound and color Doppler was performed. Live r size was within normal limits at about 10 cm. The liver parenchyma demonstrated normal sonographic appearance without evidence of intrahepatic biliary dilatation or focal lesion. Patent and hepatopeda l main portal vein. No evidence of gallbladder stones or sludge. Gallbladder wall thickness was normal at 0.27 cm. The common bile duct diameter was minimally dilated at 0.68 cm. Visualized pancreas was within normal li mits. No ascites identified. Survey of the right kidney revealed no hydronephrosis. IMPRESSION: 1. No gallstones or gallbladder sludge identified. Gallbladder wall thickness was normal. There wa s mild dilatation of the common bile duct. 2. Otherwise unremarkable exam.
== END 2017-10-16 07:07 | disposition home or self-care (01) ==
LOC: RAD 07:06
PROVIDERS: ATTEND Emergency Medicine
DX: R10.11 Right upper quadrant pain (principal)

== ENCOUNTER 2017-10-23 08:26 | Outpatient (CLI) ==
--- NOTE | 2017-10-23 10:53 | NM ---
EXAM: Hepatobiliary imaging HISTORY: Nausea COMPARISON: Limited abdominal ultrasound on the 10/16/2017 showed normal gallbladder. Mild dilatatio n of common bile duct. TECHNIQUE: Patient was injected 4.8 mCi of technetium 99m Choletec intravenously. Multiple anterior scintigraphic images of the right upper quadrant region of the abdomen were then obtained up to 1 rachelle r interval. Patient was subsequently given fatty meal and gallbladder ejection fraction was calculat ed. FINDINGS: There is normal visualization of liver and gallbladder. Proximal bile duct appears slightl y prominent. Small bowel activity is normally visualized. Gallbladder ejection fraction is 83%. IMPRESSION: 1. There is no evidence of acute or chronic cholecystitis. 2. Mildly prominent proximal bile duct.
== END 2017-10-23 08:27 | disposition home or self-care (01) ==
LOC: RAD 08:26
PROVIDERS: ATTEND Emergency Medicine
DX: R11.0 Nausea (principal)

== ENCOUNTER 2017-11-25 06:53 | Inpatient (IN) ==
[2017-11-25] MEDS ORDERED: ATIVAN IVP STA ×3 (07:14→13:11)
[2017-11-25] MEDS ORDERED: HALDOL IM STA (07:15)
[2017-11-25] MEDS ORDERED: ATIVAN ONE ×5 (07:21→13:11)
[2017-11-25] MEDS ORDERED: ATIVAN IM STA ×2 (07:21→07:28)
[2017-11-25] MEDS ORDERED: GEODON IM STA (07:31)
--- NOTE | 2017-11-25 08:17 | ED.PDOC ---
General ED Provider: Dr. ZEYNEP EPSTEIN Chief Complaint: Altered Mental Status Stated Complaint: altered mental status Time Seen by Physician: 07:00 (pt brought agitated acutely agitated grimmsing and lip smacking on arrival) Mode of Arrival: Wheelchair Information Source: Family Exam Limitations: Clinical condition, Altered mental status, Intoxication ( history of substance in the past. pt is afebrile and very agitated , has to use soft restraints for pt safety) Primary Care Provider: PHYLLIS PEREIRA Referred to ED by: Other ( was in the room at all time until 8:15 when the pt was much less agitated ) Nursing and Triage Documentation Reviewed and Agree: Yes (a possible head injury is reported by ) Reviewed sepsis parameters & appropriate labs ordered?: Yes System Inflammatory Response Syndrome: Not Applicable Sepsis Protocol: For patient's 13 years and over: Temp is 96.8 and below OR 101 and greater Pulse >90 BPM Resp >20/minute Acutely Altered Mental Status Are patient's symptoms suggestive of a new infection, such as: -Pneumonia -Skin, Soft Tissue -Endocarditis -UTI -Bone, Joint Infection -Implantable Device -Acute Abdominal Infection -Wound Infection -Meningitis -Blood Stream Catheter Infection -Unknown System Inflammatory Response Syndrome: Not Applicable Neurological Complaint Exam - Altered Mental Status Complaint/Exam Current Mental Status: Confusion, Agitation Last Known Well: 1 day ago . acutely worse this morning Onset: Sudden Duration: present 7am Symptoms Are: Still present Timing: Constant (less since arrival due to meds) Episodes Lasting: Minutes Initial Severity: Severe Current Severity: Severe Eye Deviation Present: No Character: Reports: Confusion, Agitation. Denies: Responsiveness, Lethargy Aggravating: Reports: Trauma (head is possible ), Medication change Alleviating: Reports: Medication Associated Signs and Symptoms: Reports: Weakness Related History: Reports: Similar episode Cardiac Risk Factors: Reports: Hypertension CVA Risk Factors: Reports: Hypertension Related Surgical History: Reports: None Carotid Bruit Present: No Glascow Coma Scale (see protocol): 15 Nystagmus Present: No Gag Reflex Present: Yes Meningeal Signs Positive: No Focal Weakness: Present: None Focal Sensory Loss: Present: None Gait: Unable Romberg Test Positive: No (cant examine also can not asses gait due to pt's agitation) Babinski Sign: Negative Right, Negative Left Heel to Toe Normal: No Signs of Injury: Present: Normal findings Thrombolytics Considered: No Differential Diagnoses: Injury, Metabolic Disorder, Hypoglycemia, Overdose, Medication reaction Review of Systems - Review Of Systems Constitutional: Reports: No symptoms Eyes: Reports: No symptoms Ears, Nose, Mouth, Throat: Reports: No symptoms Respiratory: Reports: No symptoms Cardiac: Reports: No symptoms GI: Reports: No symptoms : Reports: No symptoms Musculoskeletal: Reports: No symptoms Skin: Reports: No symptoms Neurological: Reports: No symptoms Endocrine: Reports: No symptoms Hematologic/Lymphatic: Reports: No symptoms All Other Systems: Reviewed and Negative Past Medical History - Past Medical History Previously Healthy: No Endocrine: Reports: None Cardiovascular: Reports: Hypertension Respiratory: Reports: COPD, Asthma, Pneumonia Hematological: Reports: Anemia Gastrointestinal: Reports: GERD Genitourinary: Reports: CKD Neuro/Psych: Reports: CVA, Schizophrenia Musculoskeletal: Reports: Arthritis (Rheumatoid ), Other Cancer: Reports: Unknown Last Menstrual Period: UNKNOWN Other Pertinent Past Medical History: colon resection - Surgical History General Surgical History: Reports: Appendectomy, Pacemaker, Orthopedic (LEFT LEG FRACTURE,lorne in leg leg and hip SURGERY), Other (KIDNEY, COLON RESECTION, LEFT LEG) - Family History Family History: Reports: Unknown - Social History Smoking Status: Current every day smoker Hx Substance Use: No Alcohol Screening: None - Immunizations Tetanus Shot up to Date: (UNKNOWN) Physical Exam - Physical Exam Appearance: Well-appearing, No pain distress, Well-nourished Eyes: SETH, EOMI, Conjunctiva clear ENT: Ears normal, Nose normal, Oropharynx normal Respiratory: Airway patent, Breath sounds clear, Breath sounds equal, Respirations nonlabored Cardiovascular: RRR, Pulses normal, No rub, No murmur GI/: Soft, Nontender, No masses, Bowel sounds normal, No Organomegaly Musculoskeletal: Normal strength, ROM intact, No edema, No calf tenderness Skin: Warm, Dry, Normal color Neurological: Sensation intact, Motor intact, Reflexes intact, Cranial nerves intact, Alert, Oriented Psychiatric: Affect appropriate, Mood appropriate Re-Evaluation - Re-Evaluation Time of Re-Evaluation: 08:00 (right sided EJ PLACE BY RAFATI FIRST ATTEMPT ) Status: Unchanged, Improved Vital Signs Stable: Yes Pain Level: no pain pt more or less agitated soft restraint in place at bed Appearance: NAD Lungs: Clear Skin: Warm and Dry Neuro: Other (SEE BELOW) CV: RRR - Re-Evaluation Time of Re-Evaluation: 09:00 (9:12 AM I PUUSHED IV KETAMINE 25 MG AND AT [address] SCAN. I STAYED WITH PT DURING CT PT COMFORTABLE ) Status: Unchanged Vital Signs Stable: Yes Appearance: NAD Skin: Warm and Dry Neuro: Other (ALERT OREINETED TO SELF) Physician Notification - Case Discussed Physician Notified: PMD Time of Notification: 10:15 (I INFORMED PT THAT PT IS STABLE SEDATE 50 MG OF IV KETAMINE IS INFUSED ) Admit To: SCU Critical Care Note - Critical Care Note Total Time (mins): 0 Course - Course Hematology/Chemistry: 11/25/17 08:40 11/25/17 08:40 Orders, Labs, Meds: Lab Review 11/25/17 11/25/17 11/25/17 08:40 08:40 09:10 WBC 5.74 RBC 4.07 L Hgb 12.2 Hct 35.7 L MCV 87.7 MCH 30.0 MCHC 34.2 RDW Coeff of Lynda 11.9 Plt Count 131 L Immature Gran % (Auto) 0.5 Neut % (Auto) 74.7 Lymph % (Auto) 18.8 [place] % (Auto) 5.2 Eos % (Auto) 0.5 Baso % (Auto) 0.3 Immature Gran # (Auto) 0.0 Neut # 4.3 Lymph # 1.1 [place] # 0.3 L Eos # 0.0 Baso # 0.0 Sodium 142 Potassium 3.2 L Chloride 107 Carbon Dioxide 27 Anion Gap 11.2 BUN 13 Creatinine 0.81 Estimated GFR (MDRD) 72.00 BUN/Creatinine Ratio 16.04 Glucose 111 Calcium 8.8 Total Bilirubin 0.3 AST 12 L ALT 10 L Alkaline Phosphatase 63 Total Protein 6.8 Albumin 3.4 Globulin 3.4 Albumin/Globulin Ratio 1.00 Urine Color Urine Clarity Urine pH Ur Specific [place] Urine Protein Urine Glucose (UA) Urine Ketones Urine Blood Urine Nitrite Urine Bilirubin Urine Urobilinogen Ur Leukocyte Esterase Urine Microscopic RBC Urine Microscopic WBC Ur Squamous Epith Cells Ur Transition Epith Cell Urine Bacteria Salicylate Level mg/dL < 5.0 Urine Opiates Screen Positive Ur Oxycodone Screen Negative Urine Methadone Screen Negative Ur Propoxyphene Screen Negative Acetaminophen < 3 L Ur Barbiturates Screen Negative U Tricyclic Antidepress Positive Ur Phencyclidine Scrn Negative Ur Amphetamine Screen Negative U Methamphetamines Scrn Negative U Benzodiazepines Scrn Positive Urine Cocaine Screen Negative U Cannabinoids Screen Positive Plasma/Serum Alcohol < 10.0 11/25/17 09:10 WBC RBC Hgb Hct MCV MCH MCHC RDW Coeff of Lynda Plt Count Immature Gran % (Auto) Neut % (Auto) Lymph % (Auto) [place] % (Auto) Eos % (Auto) Baso % (Auto) Immature Gran # (Auto) Neut # Lymph # [place] # Eos # Baso # Sodium Potassium Chloride Carbon Dioxide Anion Gap BUN Creatinine Estimated GFR (MDRD) BUN/Creatinine Ratio Glucose Calcium Total Bilirubin AST ALT Alkaline Phosphatase Total Protein Albumin Globulin Albumin/Globulin Ratio Urine Color Yellow Urine Clarity Clear Urine pH 6.5 Ur Specific [place] 1.010 Urine Protein Negative Urine Glucose (UA) Negative Urine Ketones Negative Urine Blood Negative Urine Nitrite Negative Urine Bilirubin Negative Urine Urobilinogen 0.2 Ur Leukocyte Esterase 1+ Urine Microscopic RBC 0-2 Urine Microscopic WBC 5-10 Ur Squamous Epith Cells 0-2 Ur Transition Epith Cell 0-2 Urine Bacteria Trace Salicylate Level mg/dL Urine Opiates Screen Ur Oxycodone Screen Urine Methadone Screen Ur Propoxyphene Screen Acetaminophen Ur Barbiturates Screen U Tricyclic Antidepress Ur Phencyclidine Scrn Ur Amphetamine Screen U Methamphetamines Scrn U Benzodiazepines Scrn Urine Cocaine Screen U Cannabinoids Screen Plasma/Serum Alcohol Orders Category Date Time Status EKG-(ED ONLY) Stat CARDIO 11/25/17 07:17 Completed ED HEAD OF TRAINING AND DEVELOPMENT APPLIED ONCE EMERGENCY 11/25/17 07:17 Active ACETAMINOPHEN Stat LAB 11/25/17 08:40 Completed BLOOD ALCOHOL Stat LAB 11/25/17 08:40 Completed CBC W/ AUTO DIFF Stat LAB 11/25/17 08:40 Completed COMPREHENSIVE METABOLIC PANEL Stat LAB 11/25/17 08:40 Completed DRUG SCREEN, URINE, RAPID Stat LAB 11/25/17 09:10 Completed SALICYLATE Stat LAB 11/25/17 08:40 Completed URINALYSIS C & S IF INDICATED Stat LAB 11/25/17 09:10 Completed URINE CULTURE Stat LAB 11/25/17 09:10 Received Diazepam Syringe [Valium Syringe] MEDS 11/25/17 08:21 Discontinued 5 mg IM ONCE STA Ketamine HCl Inj [Ketalar Mdv] MEDS 11/25/17 09:09 Discontinued 100 mg .ROUTE .STK-MED ONE Ketamine HCl Inj [Ketalar Mdv] MEDS 11/25/17 09:08 Discontinued 50 mg IVP ONCE STA Lorazepam Inj [Ativan] MEDS 11/25/17 07:30 Discontinued 2 mg .ROUTE .STK-MED ONE Lorazepam Inj [Ativan] MEDS 11/25/17 07:21 Discontinued 2 mg IM ONCE STA Lorazepam Inj [Ativan] MEDS 11/25/17 07:28 Discontinued 2 mg IM ONCE STA Lorazepam Inj [Ativan] MEDS 11/25/17 07:19 Discontinued 2 mg IVP ONCE STA Ziprasidone Mesylate [Geodon] MEDS 11/25/17 07:31 Discontinued 10 mg IM ONCE STA CT CERVICAL SPINE W/O CONTRAST Stat RADS 11/25/17 09:[address] HEAD W/O CONTRAST Stat RADS 11/25/17 09:25 Completed Medications Discontinued Medications Generic Name Dose Route Start Last Admin Trade Name Freq PRN Reason Stop Dose Admin Diazepam 5 mg 11/25/17 08:21 11/25/17 08:53 Valium Syringe IM 11/25/17 08:22 2 mg ONCE STA Administration Ketamine HCl 50 mg 11/25/17 09:08 11/25/17 09:12 Ketalar Mdv IVP 11/25/17 09:09 50 mg ONCE STA Administration Lorazepam 2 mg 11/25/17 07:19 11/25/17 07:21 Ativan IVP 11/25/17 07:20 2 mg ONCE STA Administration Lorazepam 2 mg 11/25/17 07:21 11/25/17 10:04 Ativan IM 11/25/17 07:22 Not Given ONCE STA Lorazepam 2 mg 11/25/17 07:28 11/25/17 10:04 Ativan IM 11/25/17 07:29 Not Given ONCE STA Ziprasidone 10 mg 11/25/17 07:31 11/25/17 07:36 Geodon IM 11/25/17 07:32 10 mg ONCE STA Administration Vital Signs: Temp Pulse Resp BP Pulse Ox 11/25/17 06:55 97.2 F L 70 28 H 208/84 H 97 Departure - Departure Time of Disposition: 10:15 Disposition: ADMITTED INPATIENT Discharge Problem: Altered mental status Instructions: Altered Mental Status (ED) Condition: Fair Pt referred to PMD for follow-up: Yes IPMP verified?: Yes Additional Instructions: Please call your Family Physician as soon as possible to schedule a follow-up appointment. Allergies/Adverse Reactions: Allergies haloperidol [From Haldol] Allergy (Severe, Verified 11/25/17 07:01) swelling in mouth Pt to get medical alert necklace haloperidol lactate [From Haldol] Allergy (Severe, Verified 11/25/17 07:01) swelling in mouth Pt to get medical alert necklace olanzapine [From Zyprexa] Adverse Reaction (Severe, Verified 11/25/17 07:01) Hives oxytetracycline [From Terramycin] Adverse Reaction (Severe, Verified 11/25/17 07 :01) Hives oxytetracycline HCl [From Terramycin] Adverse Reaction (Severe, Verified 07:01) Hives Sulfa (Sulfonamide Antibiotics) Adverse Reaction (Verified 11/25/17 07:01) Home Medications: Ambulatory Orders Hydrocodone Bit/Acetaminophen [Lortab 10-500] 1 tab PO TID #1 11/02/14 Budesonide/Formoterol Fumarate [Symbicort 160-4.5 Mcg Inhaler] 2 puff IH BID Quetiapine Fumarate [Seroquel] 600 mg PO BEDTIME 10/29/16 Cyclobenzaprine HCl 10 mg PO BID 11/21/16 Dicyclomine HCl 10 mg PO TID 11/21/16 Omeprazole [Prilosec] 20 mg PO QDAC 11/21/16 Hydroxyzine HCl 25 mg PO BEDTIME 12/24/16 Zolpidem Tartrate [Ambien] 10 mg PO BEDTIME 10/08/17 Baclofen 20 mg PO TID 11/25/17 Disposition Discussed With: Family
[2017-11-25] MEDS ORDERED: VALIUM SYRINGE IM STA (08:21)
[2017-11-25] MEDS ORDERED: KETALAR MDV IVP STA ×3 (09:08→15:21)
[2017-11-25] MEDS ORDERED: KETALAR MDV ONE (09:09)
--- NOTE | 2017-11-25 09:53 | CT ---
Exam: CT of the brain without intravenous contrast. Comparison: 05/03/2017. Reason for exam: Altered mental status. FINDINGS: No acute intracranial hemorrhage, mass effect, ventricular dilatation, or territorial infa rction. The quadrigeminal and ambient cisterns are patent. No extraaxial fluid collection is seen. Parenchymal changes are seen consistent with chronic microvascular disease. The calvarium is intact . The paranasal sinuses and mastoid air cells appear normally pneumatized without air-fluid levels. Impression: 1. No acute intracranial findings. 2. Parenchymal changes consistent with chronic microvascular disease.
--- NOTE | 2017-11-25 09:59 | CT ---
EXAM: CT cervical spine without contrast. HISTORY: Fall with altered mental status COMPARISON: CT cervical spine 05/03/2017 TECHNIQUE: Serial axial images of the cervical spine were obtained from the skull base through the l dexter apices without contrast. These were viewed in multiple planes. FINDINGS: Vertebral bodies demonstrate no acute abnormality. There is chronic-appearing superior end plate deformities at T1 and T2. There is no acute compression fracture. There is no lytic or blastic lesion. There is mild facet arthropathy. There is degenerative change at the articulation of the o dontoid process with C1. The spinous processes are intact. There is no significant change in the brittany tral or neural foraminal narrowing. Soft tissues demonstrate mild emphysema. IMPRESSION: 1. No acute compression fracture or subluxation. 2. Multilevel degenerative disease of the cervical spine is unchanged from prior examination. 3. Mild apical emphysematous disease.
[2017-11-25] MEDS: SODIUM CHLORIDE 1,000 ML IV SCH ×3 (10:36→18:01)
[2017-11-25 11:57] VITALS: BMI 26.6
[2017-11-25] MEDS ORDERED: ATIVAN INJ ONE ×2 (12:00→12:30)
[2017-11-25] MEDS: ATIVAN IVP PRN ×2 (12:00→14:00)
[2017-11-25] MEDS ORDERED: COGENTIN ONE (12:06)
[2017-11-25] MEDS ORDERED: COGENTIN IVP STA ×2 (12:07→12:12)
[2017-11-25] MEDS ORDERED: BENADRYL ONE (12:27)
[2017-11-25] MEDS ORDERED: BENADRYL IVP STA (12:30)
[2017-11-25] MEDS ORDERED: SODIUM CHLORIDE INJ ONE (12:30)
--- NOTE | 2017-11-25 13:14 | DI ---
EXAM: Single frontal view of the chest HISTORY: Cough and congestion. COMPARISON: Chest x-ray 05/04/[address] chest 05/03/2017 with multiple priors FINDINGS: Cardiomediastinal silhouette is unchanged and mildly enlarged with stable lead wires. Ther e is no pneumothorax or pleural effusion. There is no consolidation, nodule or mass. The osseous str uctures are unchanged with previously identified rib fractures. IMPRESSION: No acute cardiopulmonary process with stable cardiomediastinal silhouette.
[2017-11-25] MEDS ORDERED: REMERON PO STA (13:24)
[2017-11-25 14:11] VITALS: TEMP 98
[2017-11-25] MEDS ORDERED: VALIUM SYRINGE ONE ×2 (16:05→16:09)
[2017-11-25] MEDS ORDERED: VALIUM SYRINGE IVP STA (16:07)
[2017-11-25] MEDS ORDERED: ANECTINE IVP STA (16:24)
[2017-11-25] MEDS ORDERED: VERSED IVP STA (16:24)
[2017-11-25] MEDS ORDERED: VERSED ONE (16:50)
[2017-11-25] MEDS ORDERED: DIPRIVAN 20 ML VIAL IVP STA ×2 (16:51→17:17)
[2017-11-25] MEDS ORDERED: NORCURON ONE (16:58)
[2017-11-25] MEDS ORDERED: NORCURON IVP STA ×2 (17:00→17:45)
[2017-11-25] MEDS ORDERED: DIPRIVAN 100 ML VIAL 100 ML IV ONE (17:05)
[2017-11-25] MEDS: DIPRIVAN 100 ML VIAL 1,000 MG in PREMIX INFUSION 100 ML VIAL 1 VIAL IV SCH ×2 (17:17→19:56)
--- NOTE | 2017-11-25 17:25 | DI ---
Exam: Single view chest x-ray. Date: 11/25/2017. Comparison: 11/25/2017. HISTORY: Endotracheal tube placement. FINDINGS: The ventricular pacemaker is again seen. An endotracheal tube has been placed with the ti p approximately 3.8 cm from the mayte. There are old healed left-sided rib fractures. The lungs ar e clear and no pleural fluid or pleural separation is present. Cardiac silhouette and pulmonary vasc ulature are normal. Impression: Satisfactory placement of an endotracheal tube with the tip approximately 3.8 cm from th e mayte. No acute intrathoracic findings. Old granulomatous disease.
--- NOTE | 2017-11-25 17:39 | ED.PDOC ---
Procedures - Intubation Time of Intubation: 16:55 Medications: Yes: Norcuron, Succinylcholine, Versed, Propofol Type of Tube Used: Endotracheal Tube Size: 7.5 Cricoid Pressure Used: No Tube Man Used: Yes Position of Tube at Lip: 23 Number of Attempts: 1 Suction Used: Yes Glidescope Used: No CO2 Detector Used: Yes (Positive) Lung Sounds Equal Bilaterally: Yes Intubation Complications: Present: No complications Tube Inserted By: Dr Valle/Santos Motley CRNA Tube Placement Verified by X-ray: Yes - IV/Art Line Insertion Location: art stick for abg's from Rt wrist Type of Line: Other (art stick Rt radial) Number of Attempts: 1 Blood Return Positive: Yes Conscious Sedation - Pre-op Assessment Weight: 160 lb 4.417 oz Surgical History: partial left nephrectomy, fractured left leg - surgery with rods, colon surgery - removed 19 inches; pacemaker placement - Medical History Past Medical History: Hypertension, COPD, Asthma, GERD, Kidney Disease, Depression, Arthritis, CAD Other History: Wears home O2, pacer, osteoporosis, UC - Physical Exam Heart Rate/Rhythm: Regular Rhythm, Regular Rate
[2017-11-25] MEDS ORDERED: SUBLIMAZE ONE ×2 (17:53→17:59)
[2017-11-25] MEDS ORDERED: SUBLIMAZE IVP STA (17:56)
[2017-11-25 19:58] VITALS: BP 136/93
--- NOTE | 2017-11-26 09:27 | HP ---
DATE OF SERVICE: 11/25/17 CHIEF COMPLAINT: Change in mental status HISTORY OF PRESENT ILLNESS: This is a 62 year old female with a history of multiple medical problems like COPD, schizophrenia and depression came to the emergency room. noticed that the patient been restless, keep having the random movements in the upper and lower extremities could not be stopped. Came to the emergency room and seen by Dr. Valle. The patient has having violent repetitive movement of the upper extremities, lower extremities and face grimaces. Was given Geodon, Ativan and could not stop and one more dose of Ativan was given and the patient has to be held together for that and did give her 8mg Lorazepam; 2mg, 2mg and 2mg a total of 12-13mg of Lorazepam and finally Ketamine was given 50mg IV push which did made her Zonked and Haloperidol was given one time which made her little bit resting. Labs obtained. CT head was negative for the stroke. Labs are normal; potassium 3.2, urine toxicology showed positive for the tricyclic antidepressant , Benztropine positive. marijuana positive, opioids positive, alcohol negative. At that time the patient was admitted to ICU for change in mental status, Akathisia and dyskinetic movements most likely symptoms from her psychiatric medications. REVIEW OF SYSTEMS: CONSTITUTIONAL: No fever, no chills. HEENT: Normal. ENDOCRINE: No weight gain; no weight loss. CVS: No chest pain. No PND, no orthopnea. No shortness of breath. No PND, no orthopnea. RESPIRATORY: Some cough and congestion. No hemoptysis. GI: No nausea, no vomiting. No abdominal pain. No melena. : No hematuria. No polyuria. MUSCULOSKELETAL: No joint swelling. Rapid and irregular movements of the upper and lower extremities, facial grimaces. PSYCHIATRIC: Not anxious. No depression. No suicidal thoughts. No homicidal thoughts. Change in mental status. Some unresponsiveness. SKIN: Intact, no open lesions. PAST MEDICAL HISTORY: Coronary artery disease Hypertension Dyslipidemia Seizure disorder COPD Asthma Chronic bronchitis Nicotine use Sleep apnea on CPAP GERD Osteoarthritis DJD spine Chronic kidney disease Depression Anxiety Schizophrenia Substance use PAST SURGICAL HISTORY: Permeant pacemaker Appendectomy Half left kidney removed 2 inches of colon removed PERSONAL HISTORY: The patient is , lives with the , smokes and uses Marijuana sometimes. Family history is significant for the hypertension, heart problems and colon cancer. MEDICATIONS: Hydrocodone Symbicort Albuterol Seroquel Prilosec Dicyclomine Cyclobenzaprine Hydroxyzine Metoprolol Neurontin Lisinopril Zolpidem Promethazine Baclofen ALLERGIES: Haloperidol Olanzapine Oxytetracycline Sulfa PHYSICAL EXAMINATION: V/S: Blood pressure 113/97, respiratory rate 22, heart rate 85, temperature 97.0 with saturation 97. HEENT: Atraumatic, normocephalic. No scleral icterus. Pallor . Mucosa . NECK: Supple. No JVD, no bruit. No lymphadenopathy. No thyromegaly. HEART: Sinus Tachy. S1, S2 normal. No murmur. No cyanosis or clubbing. No ascites. LUNGS: Basilar crackles are present. Clear to auscultation. No rales or rhonchi. ABDOMEN: Soft, nontender. Bowel sounds are active. No CVA tenderness. No rigidity or guarding. EXTREMITIES: No pedal edema. No cyanosis or clubbing MUSCULOSKELETAL: Normal joints, no swelling. NEUROLOGIC: The patient is not responding to the verbal stimuli. Still having the violent repetitive contractures of the upper extremities. The patient wants to get up and does not comprehend at all. No listening. Repetitive movements, smacking of the face. Movements of the lower extremities. SKIN: Intact; no open lesions. LYMPHATIC: No lymph nodes palpable. LABS: Sodium 142, potassium 3.2, chloride 107, bicarb 27, BUN 11, creatinine 0.81, glucose 111. WBC 5.74, hgb 12.2, hct 35.7, plt count 131 ASSESSMENT: 1. Intractable involuntary movements of the upper and lower extremities 2. Akathisia like reaction to the poly pharmacy most likely recently started Baclofen 3. History of Depression 4. Anxiety 5. COPD 6. CAD 7. Hypertension 8. Dyslipidemia PLAN: 1. Neuro checks 2. One on one 3. IV fluids 4. Diazepam 5. Remeron 6. Ativan 7. Benadryl TIME SPENT: MORE THAN 75 minutes which is ICU time. MTDD
--- NOTE | 2018-01-15 11:47 | SSS ---
DATE OF SERVICE: 11/25/17 REASON FOR CONSULTATION/ADMISSION/HISTORY OF PRESENT ILLNESS: This is a 62 year old female with a history of multiple medical problems like COPD, schizophrenia and depression came to the emergency room. noticed that the patient been restless, keep having the random movements in the upper and lower extremities could not be stopped. Came to the emergency room and seen by Dr. Valle. The patient has having violent repetitive movement of the upper extremities, lower extremities and face grimaces. Was given Geodon, Ativan and could not stop and one more dose of Ativan was given and the patient has to be held together for that and did give her 8mg Lorazepam; 2mg, 2mg and 2mg a total of 12-13mg of Lorazepam and finally Ketamine was given 50mg IV push which did made her Zonked and Haloperidol was given one time which made her little bit resting. Labs obtained. CT head was negative for the stroke. Labs are normal; potassium 3.2, urine toxicology showed positive for the tricyclic antidepressant , Benztropine positive. marijuana positive, opioids positive, alcohol negative. At that time the patient was admitted to ICU for change in mental status, Akathisia and dyskinetic movements most likely symptoms from her psychiatric medications. REVIEW OF SYSTEMS: CONSTITUTIONAL: No fever, no chills. HEENT: Normal. ENDOCRINE: No weight gain; no weight loss. CVS: No chest pain. No PND, no orthopnea. No shortness of breath. No PND, no orthopnea. RESPIRATORY: Some cough and congestion. No hemoptysis. GI: No nausea, no vomiting. No abdominal pain. No melena. : No hematuria. No polyuria. MUSCULOSKELETAL: No joint swelling. Rapid and irregular movements of the upper and lower extremities, facial grimaces. PSYCHIATRIC: Not anxious. No depression. No suicidal thoughts. No homicidal thoughts. Change in mental status. Some unresponsiveness. SKIN: Intact, no open lesions. PAST MEDICAL HISTORY: Coronary artery disease Hypertension Dyslipidemia Seizure disorder COPD Asthma Chronic bronchitis Nicotine use Sleep apnea on CPAP GERD Osteoarthritis DJD spine Chronic kidney disease Depression Anxiety Schizophrenia Substance use PAST SURGICAL HISTORY: Permeant pacemaker Appendectomy Half left kidney removed 2 inches of colon removed PERSONAL HISTORY: The patient is , lives with the , smokes and uses Marijuana sometimes. Family history is significant for the hypertension, heart problems and colon cancer. PHYSICAL EXAMINATION: V/S: Blood pressure 113/97, respiratory rate 22, heart rate 85, temperature 97.0 with saturation 97. HEENT: Atraumatic, normocephalic. No scleral icterus. Pallor . Mucosa . NECK: Supple. No JVD, no bruit. No lymphadenopathy. No thyromegaly. HEART: Sinus Tachy. S1, S2 normal. No murmur. No cyanosis or clubbing. No ascites. LUNGS: Basilar crackles are present. Clear to auscultation. No rales or rhonchi. ABDOMEN: Soft, nontender. Bowel sounds are active. No CVA tenderness. No rigidity or guarding. EXTREMITIES: No pedal edema. No cyanosis or clubbing MUSCULOSKELETAL: Normal joints, no swelling. NEUROLOGIC: The patient is not responding to the verbal stimuli. Still having the violent repetitive contractures of the upper extremities. The patient wants to get up and does not comprehend at all. No listening. Repetitive movements, smacking of the face. Movements of the lower extremities. SKIN: Intact; no open lesions. LYMPHATIC: No lymph nodes palpable. MEDICATIONS: Hydrocodone Symbicort Albuterol Seroquel Prilosec Dicyclomine Cyclobenzaprine Hydroxyzine Metoprolol Neurontin Lisinopril Zolpidem Promethazine Baclofen ALLERGIES: Haloperidol Olanzapine Oxytetracycline Sulfa LABS: Sodium 142, potassium 3.2, chloride 107, bicarb 27, BUN 11, creatinine 0.81, glucose 111. WBC 5.74, hgb 12.2, hct 35.7, plt count 131 PROGRESS NOTES: See EMR. HOSPITAL COURSE: The patient was admitted with change in mental status and aggressive behavior from the ER. The patient was given Ativan and Haldol and nothing is helping her to calm her down. Initial thought this can be neuroleptic malignant syndrome but the patient was given Lorazepam 2mg every 1-2 hours. Benztropine was also given. Ketamine was given. Ketamine did keep patient low for at least a couple of hours but again she started resisting and fighting. Remeron was given, Ketamine was given, Diazepam was given, Midazolam was given and nothing was helping the patient to calm her down. The patient still had unusual behavior was open eyes, responding but she could not stop the random movements of the upper and lower extremities and she continuously wants flex them. The nurses were holding the patient's arms. At that time the patient was paralyzed Fentanyl and Midazolam, Vecuronium. Santos Motley was called to help with the intubation. The patient being intubated and transferred to the [facility] for higher care. DIAGNOSES: 1. Intractable involuntary movements of the upper and lower extremities 2. Akathisia like reaction to the [facility] pharmacy most likely recently started Baclofen 3. History of Depression 4. Anxiety 5. COPD 6. Coronary artery disease 7. Hypertension 8. Dyslipidemia RECOMMENDATIONS/PLAN: 1. Neuro-checks 2. One on one 3. IV fluids 4. Diazepam 5. Remeron 6. Ativan 7. Benadryl 8. Transfer patient to [facility] TIME SPENT: More than 70 minutes, CRITICAL CARE TIME. LESLIE
== END 2017-11-25 18:20 | disposition short-term general hospital (02) | DRG 948 ==
LOC: ED 06:53 → SCU 10:16
PROVIDERS: ADMIT Emergency Medicine; ATTEND Emergency Medicine
PROC: 0BH17EZ Insertion of Endotracheal Airway into Trachea, Via Natural or Artificial Opening (ICD-10-PCS; principal; 2017-11-25)
DX: R41.82 Altered mental status, unspecified (principal); G25.71 Drug induced akathisia; G24.01 Drug induced subacute dyskinesia; T42.8X5A Adverse effect of antiparkinsonism drugs and other central muscle-tone depressants, initial encounter; F20.9 Schizophrenia, unspecified; F11.90 Opioid use, unspecified, uncomplicated; F15.90 Other stimulant use, unspecified, uncomplicated; F12.90 Cannabis use, unspecified, uncomplicated; R45.1 Restlessness and agitation; J44.9 Chronic obstructive pulmonary disease, unspecified; I25.10 Atherosclerotic heart disease of native coronary artery without angina pectoris; I10 Essential (primary) hypertension; E78.5 Hyperlipidemia, unspecified; F41.8 Other specified anxiety disorders; F17.210 Nicotine dependence, cigarettes, uncomplicated; Z79.899 Other long term (current) drug therapy; Z95.0 Presence of cardiac pacemaker
CPT/HCPCS: 36415; 80053; 80178; 80306; 80307; 81001; 82140; 82550; 82553; 82803; 84484; 85025; 87086; 88740; 93005; 93010; 94002; 96361; 96372; 96374; 96375; 96376; 99284

== ENCOUNTER 2017-11-25 18:16 | Outpatient (CLI) ==
[2017-11-25 11:57] VITALS: BMI 26.6
== END 2017-11-25 18:17 | disposition short-term general hospital (02) ==
LOC: AMBL 18:16
PROVIDERS: ATTEND Internal Medicine
DX: R41.82 Altered mental status, unspecified (principal)

== ENCOUNTER 2017-12-24 08:01 | Outpatient (CLI) ==
--- NOTE | 2017-12-24 08:48 | DI ---
EXAM: CHEST FRONTAL AND LATERAL VIEWS HISTORY: Cough. COMPARISON: 11/25/2017 FINDINGS: Heart size and mediastinal contour remain within normal limits. Endotracheal tube has bee n removed. Left-sided pacemaker unit is unchanged in position. Lungs are clear. No pleural fluid o r pneumothorax. Early loss of height of a few of the lower thoracic vertebral bodies are similar to t hat seen on prior CT of 05/03/2017. IMPRESSION: No acute cardiopulmonary process.
== END 2017-12-24 08:02 | disposition home or self-care (01) ==
LOC: RAD 08:01
PROVIDERS: ATTEND Nurse Practitioner Family
DX: R05 Cough (principal)
CPT/HCPCS: 36415; 80053; 85025

== ENCOUNTER 2018-01-04 13:03 | Emergency (ER) ==
[2018-01-04 13:15] VITALS: BP 131/81; TEMP 98.1; BMI 27.1
--- NOTE | 2018-01-04 13:27 | ED.PDOC ---
Medical Screening Exam - General Information Time Seen by Physician*: 01:30 (with ) Mode of Arrival: Walk-In Information Source: Patient - History Chief Complaint: Weakness Stated Complaint: +I feel weak Symptoms Are: Still present Timing: Constant Severity: Moderate - Review Of Systems Constitutional: None CV: Reports: None Respiratory: Reports: None (mild wheeze) GI: Reports: None : Reports: None Musculoskeletal: Reports: None Neuro: Reports: None - Examination Findings Visit Related to : No - Medical Decision Making Emergency Medical Condition: Yes Physical Exam - Physical Exam Appearance: Well-appearing Eyes: SETH, EOMI, Conjunctiva clear ENT: Ears normal, Nose normal, Oropharynx normal Respiratory: Wheezes Cardiovascular: RRR, Pulses normal, No rub, No murmur GI/: Soft, Nontender, No masses, Bowel sounds normal, No Organomegaly Musculoskeletal: Normal strength, ROM intact, No edema, No calf tenderness Skin: Warm, Dry, Normal color Neurological: Sensation intact, Motor intact, Reflexes intact, Cranial nerves intact, Alert, Oriented Psychiatric: Affect appropriate, Mood appropriate Critical Care Note - Critical Care Note Total Time (mins): 0 Course - Course Hematology/Chemistry: 01/04/18 13:55 Orders, Labs, Meds: Lab Review 01/04/18 13:55 WBC 9.12 RBC 3.58 L Hgb 10.7 L Hct 31.6 L MCV 88.3 MCH 29.9 MCHC 33.9 RDW Coeff of Lynda 12.7 Plt Count 147 Immature Gran % (Auto) 0.3 Neut % (Auto) 73.2 Lymph % (Auto) 20.6 [place] % (Auto) 4.5 Eos % (Auto) 1.1 Baso % (Auto) 0.3 Immature Gran # (Auto) 0.0 Neut # (Auto) 6.7 Lymph # (Auto) 1.9 [place] # (Auto) 0.4 Eos # (Auto) 0.1 Baso # (Auto) 0.0 Orders Category Date Time Status EKG-(ED ONLY) Stat CARDIO 01/04/18 13:35 Completed CBC W/ AUTO DIFF Stat LAB 01/04/18 13:55 Completed CHEST, 2 VIEWS PA & LAT Stat RADS 01/04/18 13:35 Completed Vital Signs: Temp Pulse Resp BP Pulse Ox 01/04/18 13:05 98.1 F 66 20 131/81 91 L Departure - Departure Time of Disposition: 16:40 Disposition: HOME SELF-CARE Discharge Problem: Fatigue Qualifiers: Fatigue type: unspecified Qualified Code(s): R53.83 - Other fatigue Condition: Good Pt referred to PMD for follow-up: Yes IPMP verified?: No Allergies/Adverse Reactions: Allergies haloperidol [From Haldol] Allergy (Severe, Verified 01/04/18 13:17) swelling in mouth Pt to get medical alert necklace haloperidol lactate [From Haldol] Allergy (Severe, Verified 01/04/18 13:17) swelling in mouth Pt to get medical alert necklace olanzapine [From Zyprexa] Adverse Reaction (Severe, Verified 01/04/18 13:17) Hives oxytetracycline [From Terramycin] Adverse Reaction (Severe, Verified 01/04/18 13 :17) Hives oxytetracycline HCl [From Terramycin] Adverse Reaction (Severe, Verified 13:17) Hives Sulfa (Sulfonamide Antibiotics) Adverse Reaction (Verified 01/04/18 13:17) [place] Allergy (Severe, Uncoded 01/04/18 13:17) Anaphylaxis Home Medications: Ambulatory Orders Hydrocodone Bit/Acetaminophen [Lortab 10-500] 1 tab PO TID #1 11/02/14 Budesonide/Formoterol Fumarate [Symbicort 160-4.5 Mcg Inhaler] 2 puff IH BID Quetiapine Fumarate [Seroquel] 600 mg PO BEDTIME 10/29/16 Cyclobenzaprine HCl 10 mg PO BID 11/21/16 Dicyclomine HCl 10 mg PO TID 11/21/16 Omeprazole [Prilosec] 20 mg PO QDAC 11/21/16 Hydroxyzine HCl 25 mg PO BEDTIME 12/24/16 Zolpidem Tartrate [Ambien] 10 mg PO BEDTIME 10/08/17 Alprazolam [Xanax] 0.5 mg PO TID 01/04/18
--- NOTE | 2018-01-04 14:17 | DI ---
EXAM: Two views of the chest. History: Wheezing Comparison: Chest radiograph 12/24/2017 Findings: Heart size is upper limits of normal. Pacer device again seen in place. There may be bro nchial wall thickening. No focal consolidation. Left lower lung subsegmental atelectasis again note d. No appreciable pleural fluid and no pneumothorax. Atherosclerotic vascular calcifications. Visu alized osseous structures unchanged with no acute osseous abnormalities identified. Impression: Bronchial wall thickening with no consolidated pneumonia.
== END 2018-01-04 16:38 | disposition home or self-care (01) ==
LOC: ED 13:03
DX: R53.83 Other fatigue (principal)
CPT/HCPCS: 36415; 85025; 93005; 93010; 99283

== ENCOUNTER 2018-04-19 09:56 | Outpatient (CLI) | END 2018-04-19 09:57 | disposition home or self-care (01) | LOC: RAD 09:56 | PROVIDERS: ATTEND Emergency Medicine | DX: Z12.31 Encounter for screening mammogram for malignant neoplasm of breast (principal) | CPT/HCPCS: 77067 ==

== ENCOUNTER 2018-08-02 10:44 | Emergency (ER) ==
[2018-08-02 10:54] VITALS: BP 166/91; TEMP 98.6; BMI 28.4
--- NOTE | 2018-08-02 13:11 | CT ---
Exam: Chest CT without contrast HISTORY: Fall. Pain in left breast. Procedures: contiguous axial images were obtained through the chest without the use of contrast. Sag ittal and coronal reformatted images were also created and reviewed. Comparison: Chest x-ray two-view 01/04/[address] of the chest 05/03/2017. Findings: Evaluation of the soft tissues is limited without use of intravenous contrast. There is n o breast hematoma. There is no axillary lymphadenopathy. Pacemaker overlies the left chest as befor e with resultant beam-hardening artifact. Subcentimeter lymph nodes are noted throughout the mediast inum without matthew mediastinal lymphadenopathy. There is redemonstration of calcified mediastinal ly mph nodes and calcified left hilar lymph nodes. Atherosclerotic disease is again noted, including th e coronary arteries. There is no pericardial effusion. Limited visualization of the upper abdominal soft tissues demonstrates no lymphadenopathy. Mild bibasilar and lingular pulmonary atelectasis is noted . There is no pneumothorax. Bilateral subpleural blebs. The trachea and mainstem bronchi linda ear patent. Bone windows demonstrate degenerative findings in the spine. Lower thoracic compression deformities are again noted. Concave deformities in the T1 and T2 vertebral body superior endplates are again no nik. There is redemonstration of the manubrial deformity. Chronic-appearing left rib fracture defor mities are again noted. Old, healed appearing right rib fracture deformities are also noted. There is no acute fractures seen. Impressions: No acute process identified on this study of the chest. Mild atelectasis in the bilateral lower lobe and lingula. Atherosclerosis, including the coronary arteries. Stable pacemaker. Findings were faxed to the emergency department at 12:55 p.m.
--- NOTE | 2018-08-02 13:14 | CT ---
EXAM: CT pelvis without contrast. TECHNIQUE: Helical axial CT of the pelvis was performed without contrast with coronal and sagittal re constructions. COMPARISON: CT abdomen pelvis from 09/15/2017 HISTORY: Trauma FINDINGS: There is no acute fracture or dislocation identified. There is a chronic healed fracture of the inferior pubic ramus on the right. The acetabuli are intact. There is no evidence for proxim al femur fracture. There has been ORIF for prior left hip fracture. There is no periprosthetic fract ure. There is no hip dislocation. The sacroiliac joints are unremarkable. There are no sacral ala f racture. The ilium and ischium are intact bilaterally. There is no evidence for lower lumbar fractu re. There are no acute soft tissue abnormalities. There is advanced atherosclerosis. There is a bon e island in the sacral ala on the right. IMPRESSION: 1. No acute fracture in the pelvis. 2. Chronic healed inferior pubic ramus fracture on the right. 3. Other findings as above.
--- NOTE | 2018-08-02 14:04 | ED.PDOC ---
General ED Provider: Dr. ZEYNEP EPSTEIN Chief Complaint: Fall Stated Complaint: fall Time Seen by Physician: 11:00 Mode of Arrival: Wheelchair Information Source: Patient Exam Limitations: No limitations Primary Care Provider: JAMISON CABRERA Nursing and Triage Documentation Reviewed and Agree: Yes Does patient meet sepsis criteria?: No System Inflammatory Response Syndrome: Not Applicable Sepsis Protocol: For patient's 13 years and over: Temp is 96.8 and below OR 101 and greater Pulse >90 BPM Resp >20/minute Acutely Altered Mental Status Are patient's symptoms suggestive of a new infection, such as: -Pneumonia -Skin, Soft Tissue -Endocarditis -UTI -Bone, Joint Infection -Implantable Device -Acute Abdominal Infection -Wound Infection -Meningitis -Blood Stream Catheter Infection -Unknown Trauma/Injury Complaint Exam - Trauma Complaint/Exam Location of Pain or Injury: Reports: Chest, Other (pelvis) Mechanism of Injury: Reports: Fall Onset/Duration: today Symptoms Are: Still present Timing of Treatment: Immediate Initial Severity: Mild Current Severity: Mild Character: Reports: Aching Aggravating: Reports: Movement Alleviating: Reports: Rest Associated Signs and Symptoms: Denies: LOC, Confusion, Memory loss, Lethargy, Vomiting, Bleeding, Bruising, Swelling, Extremity disuse, Painful respiration, Hoarseness, Dysphagia, Hemoptysis, Significant blood loss Nexus Low Risk Criteria: No post-midline CS tender, No evidence of intoxicat., No Altered LOC, No focal neuro deficit, No distracting injuries Immobilization Removed Post Exam: No Glascow Coma Scale (see protocol): 15 Trauma Findings: Absent: [place] eyes, Hemotympanum, Nasal deformity, Dental tenderness, Dental injury, Dental malocclusion, Neck tenderness, Neck spasm, SubQ Air, Crepitus, Airway obstructed, Trachea displaced, Labored respirations, Decreased breath sounds, Muffled heart sounds, Weak pulses, Absent pulses, Abdominal distention, Pelvic tenderness, Pelvic instability Skin Findings: Present: Normal findings Differential Diagnoses: Fracture, Sprain, Strain Review of Systems - Review Of Systems Constitutional: Reports: No symptoms Eyes: Reports: No symptoms Ears, Nose, Mouth, Throat: Reports: No symptoms Respiratory: Reports: No symptoms Cardiac: Reports: No symptoms GI: Reports: No symptoms : Reports: No symptoms Musculoskeletal: Reports: Joint pain (hip, groin left, chest wall pain anterior) Skin: Reports: No symptoms Neurological: Reports: No symptoms Endocrine: Reports: No symptoms Hematologic/Lymphatic: Reports: No symptoms All Other Systems: Reviewed and Negative Past Medical History - Past Medical History Previously Healthy: No Endocrine: Reports: None Cardiovascular: Reports: Hypertension Respiratory: Reports: COPD, Asthma, Pneumonia Hematological: Reports: Anemia Gastrointestinal: Reports: GERD Genitourinary: Reports: CKD Neuro/Psych: Reports: CVA, Schizophrenia Musculoskeletal: Reports: Arthritis (Rheumatoid ), Other Cancer: Reports: Unknown Last Menstrual Period: unknown Other Pertinent Past Medical History: colon resection - Surgical History General Surgical History: Reports: Appendectomy, Pacemaker, Orthopedic (LEFT LEG FRACTURE,lorne in leg leg and hip SURGERY), Other (KIDNEY, COLON RESECTION, LEFT LEG) - Family History Family History: Reports: Unknown - Social History Smoking Status: Current every day smoker, Heavy tobacco smoker Hx Substance Use: No Alcohol Screening: None Physical Exam - Physical Exam Appearance: Well-appearing, No pain distress, Well-nourished Eyes: SETH, EOMI, Conjunctiva clear ENT: Ears normal, Nose normal, Oropharynx normal Respiratory: Airway patent, Breath sounds clear, Breath sounds equal, Respirations nonlabored Cardiovascular: RRR, Pulses normal, No rub, No murmur GI/: Soft, Nontender, No masses, Bowel sounds normal, No Organomegaly Musculoskeletal: Normal strength, ROM intact, No edema, No calf tenderness Skin: Warm, Dry, Normal color Neurological: Sensation intact, Motor intact, Reflexes intact, Cranial nerves intact, Alert, Oriented Psychiatric: Affect appropriate, Mood appropriate Interpretation - Radiology Interpretation Radiology Interpretation By: Radiologist Radiology Results: No acute changes Critical Care Note - Critical Care Note Total Time (mins): 0 Course - Course Orders, Labs, Meds: Orders Category Date Time Status CT CHEST W/O CONTRAST Stat RADS 08/02/18 11:[address] PELVIS W/O CONTRAST Stat RADS 08/02/18 11:07 Completed Vital Signs: Temp Pulse Resp BP Pulse Ox 08/02/18 10:46 98.6 F 73 20 166/91 H 93 L Departure - Departure Time of Disposition: 14:06 Disposition: HOME SELF-CARE Discharge Problem: Chest wall pain Instructions: Noncardiac Chest Pain (ED), Chest Wall Pain (ED) Condition: Good Pt referred to PMD for follow-up: Yes IPMP verified?: No Allergies/Adverse Reactions: Allergies haloperidol [From Haldol] Allergy (Severe, Verified 08/02/18 10:55) swelling in mouth Pt to get medical alert necklace haloperidol lactate [From Haldol] Allergy (Severe, Verified 08/02/18 10:55) swelling in mouth Pt to get medical alert necklace olanzapine [From Zyprexa] Adverse Reaction (Severe, Verified 08/02/18 10:55) Hives oxytetracycline [From Terramycin] Adverse Reaction (Severe, Verified 08/02/18 10 :55) Hives oxytetracycline HCl [From Terramycin] Adverse Reaction (Severe, Verified 10:55) Hives Sulfa (Sulfonamide Antibiotics) Adverse Reaction (Verified 08/02/18 10:55) Bacolfen Allergy (Severe, Uncoded 01/04/18 13:17) Anaphylaxis Home Medications: Ambulatory Orders Hydrocodone Bit/Acetaminophen [Lortab 10-500] 1 tab PO TID #1 11/02/14 Quetiapine Fumarate [Seroquel] 600 mg PO BEDTIME 10/29/16 Cyclobenzaprine HCl 10 mg PO BID 11/21/16 Dicyclomine HCl 10 mg PO TID 11/21/16 Omeprazole [Prilosec] 20 mg PO QDAC 11/21/16 Hydroxyzine HCl 25 mg PO BEDTIME 12/24/16 Zolpidem Tartrate [Ambien] 10 mg PO BEDTIME 10/08/17 Alprazolam [Xanax] 0.5 mg PO TID 01/04/18 Escitalopram Oxalate [Lexapro] 20 mg PO DAILY 07/22/18
== END 2018-08-02 14:22 | disposition home or self-care (01) ==
LOC: ED 10:44
DX: R07.89 Other chest pain (principal); M25.559 Pain in unspecified hip; W19.XXXA Unspecified fall, initial encounter; F17.210 Nicotine dependence, cigarettes, uncomplicated
CPT/HCPCS: 99283

== ENCOUNTER 2018-09-01 16:39 | Outpatient (CLI) | END 2018-09-01 16:40 | disposition home or self-care (01) | LOC: FCC-LAB 16:39 | PROVIDERS: ATTEND Family Medicine | DX: E16.2 Hypoglycemia, unspecified (principal) | CPT/HCPCS: 36415; 83037 ==

== ENCOUNTER 2018-10-25 13:04 | Outpatient (CLI) | END 2018-10-25 13:05 | disposition home or self-care (01) | LOC: LAB 13:04 | DX: Z79.899 Other long term (current) drug therapy (principal) | CPT/HCPCS: 36415; 80053; 80061; 83036; 85025 ==

== ENCOUNTER 2018-11-02 08:00 | Outpatient (CLI) ==
--- NOTE | 2018-11-02 09:09 | US ---
EXAM: Right upper quadrant abdominal ultrasound. History: Right upper quadrant abdominal pain. Comparison: Abdominal ultrasound 10/16/2078, CT abdomen pelvis 09/15/2017 Technique: Multiple sonographic images through the abdomen were obtained. Color duplex Doppler was used to interrogate vascular flow. Findings: The visualized pancreas demonstrates no abnormality. The liver is upper limits of normal in length. No focal liver lesions identified sonographically. There is antegrade flow within the main portal v ein. Limited visualization of the right kidney demonstrates no evidence for hydronephrosis. Inciden awilda 1 cm anechoic right renal cyst. No abdominal ascites No shadowing gallstones. Gallbladder wall is not thickened. Common bile duct measures 0.4 cm in dana iber. Impression: 1. No acute sonographic findings. 2. Small simple right renal cyst
== END 2018-11-02 08:01 | disposition home or self-care (01) ==
LOC: RAD 08:00
PROVIDERS: ATTEND Family Medicine
DX: R10.11 Right upper quadrant pain (principal); R11.0 Nausea

== ENCOUNTER 2018-11-08 08:09 | Inpatient (IN) ==
[2018-11-08] MEDS ORDERED: SODIUM CHLORIDE 1,000 ML IV STA (08:29)
[2018-11-08] MEDS ORDERED: ROCEPHIN 2 GM in SODIUM CHLORIDE 100 ML IV STA (08:29)
[2018-11-08] MEDS ORDERED: SOLU-MEDROL 125 MG IVP STA (08:29)
[2018-11-08] MEDS ORDERED: DUONEB NEB STA (08:29)
--- NOTE | 2018-11-08 08:56 | DI ---
EXAM: CHEST FRONTAL VIEW HISTORY: Shortness of breath. COMPARISON: 01/04/2018 FINDINGS: Heart size remains within normal limits. Stable left-sided pacemaker unit. There is at l east mild atherosclerotic disease. Mild central vascular congestion is suggested. No consolidations , pneumothorax or pleural fluid. IMPRESSION: 1. Mild central vascular congestion.
[2018-11-08] MEDS ORDERED: LIDOCAINE HCL 1% SDV ONE (09:39)
--- NOTE | 2018-11-08 10:11 | ED.PDOC ---
General ED Provider: Dr. ZEYNEP EPSTEIN Chief Complaint: Nausea/Vomiting Stated Complaint: shortness of breath Time Seen by Physician: 08:12 (braxton and miya present at all times ) Mode of Arrival: Walk-In Information Source: Patient, Family Exam Limitations: No limitations Primary Care Provider: GENNARO CRZU Nursing and Triage Documentation Reviewed and Agree: Yes Does patient meet sepsis criteria?: Yes If yes, has appropriate treatment been initiated?: Yes System Inflammatory Response Syndrome: Not Applicable (short of air) Sepsis Protocol: For patient's 13 years and over: Temp is 96.8 and below OR 101 and greater Pulse >90 BPM Resp >20/minute Acutely Altered Mental Status Are patient's symptoms suggestive of a new infection, such as: -Pneumonia -Skin, Soft Tissue -Endocarditis -UTI -Bone, Joint Infection -Implantable Device -Acute Abdominal Infection -Wound Infection -Meningitis -Blood Stream Catheter Infection -Unknown Respiratory Complaint Exam - Shortness of Air Complaint/Exam Onset/Duration: 2 days Symptoms Are: Resolved Timing: Intermittent Initial Severity: Moderate Current Severity: None Character: Reports: Dyspnea on exertion Aggravating: Reports: URI Alleviating: Reports: Bronchodilators, Upright position, Spontaneous resolution Associated Signs and Symptoms: Reports: Cough. Denies: Wheezing, Chest pain with cough, Chest pain, Fever, Chills, Diaphoresis, Nasal congestion, Dizziness , Calf pain, Calf swelling, Edema, Rapid breathing, Labored breathing, Decreased intake History of Healthcare-Acquired Pneumonia: No Pulmonary Embolism Risk Factors: Reports: Bedrest Cardiac Risk Factors: Reports: Smoking Pseudomonas Risk Factors: Reports: None Tuberculosis Risk Factors: Reports: None Home Oxygen Use: No Recent Stress Test: No Recent Echo/LV Function: No Respiratory Distress: None Stridor Present: No Tracheal Deviation: No Subcutaneous Emphysema: No Accessory Muscle Use: No Retractions: Not Present Diminished Breath Sounds: Yes Prolonged Expiratory Phase: No Unable to Speak Full Sentences: No Fatigue: No Leg Swelling: No Marylin's Sign Present: No Grunting Respirations: No Kussmaul Respirations: No Differential Diagnoses: CHF, Pulmonary Edema, Chest Wall Pain, COPD Exacerbation , Pneumonia, Pulmonary Embolism, URI Quality Indicators for AMI: EKG in 10min. Quality Indicators for Cardiac Chest Pain: EKG in 10min. Quality Indicator For Non-Traumatic Chest Pain/Syncope: EKG Performed Review of Systems - Review Of Systems Constitutional: Reports: Chills, Malaise, Weakness, Loss of appetite Eyes: Reports: No symptoms Ears, Nose, Mouth, Throat: Reports: No symptoms Respiratory: Reports: Cough, Orthopnea, Short of air, Wheezing Cardiac: Reports: No symptoms GI: Reports: No symptoms : Reports: No symptoms Musculoskeletal: Reports: No symptoms Skin: Reports: No symptoms Neurological: Reports: No symptoms Endocrine: Reports: No symptoms Hematologic/Lymphatic: Reports: No symptoms All Other Systems: Reviewed and Negative Past Medical History - Past Medical History Previously Healthy: No Endocrine: Reports: None Cardiovascular: Reports: Hypertension Respiratory: Reports: COPD, Asthma, Pneumonia Hematological: Reports: Anemia Gastrointestinal: Reports: GERD Genitourinary: Reports: CKD Neuro/Psych: Reports: CVA, Schizophrenia Musculoskeletal: Reports: Arthritis (Rheumatoid ), Other Cancer: Reports: Unknown Last Menstrual Period: Years ago Other Pertinent Past Medical History: colon resection - Surgical History General Surgical History: Reports: Appendectomy, Pacemaker, Orthopedic (LEFT LEG FRACTURE,lorne in leg leg and hip SURGERY), Other (KIDNEY, COLON RESECTION, LEFT LEG) - Family History Family History: Reports: Unknown - Social History Smoking Status: Current every day smoker, Heavy tobacco smoker Hx Substance Use: No Alcohol Screening: None Physical Exam - Physical Exam Appearance: Ill-appearing Ill-appearing: Mild Eyes: SETH, EOMI, Conjunctiva clear ENT: Ears normal, Nose normal, Oropharynx normal Respiratory: Breath sounds diminished, Rhonchi Cardiovascular: RRR, Pulses normal, No rub, No murmur GI/: Soft, Nontender, No masses, Bowel sounds normal, No Organomegaly Musculoskeletal: Normal strength, ROM intact, No edema, No calf tenderness Skin: Warm, Dry, Normal color Neurological: Sensation intact, Motor intact, Reflexes intact, Cranial nerves intact, Alert, Oriented Psychiatric: Affect appropriate, Mood appropriate Interpretation - Radiology Interpretation Radiology Interpretation By: Radiologist Radiology Results: No acute changes Procedures - Central Line Follow Proper Hand Washing Protocol: Yes Indication: Present: No peripheral access Central Line Lumen: Single Central Line Procedure: Yes: Betadine Prep, Sterile drapes applied, Sterile dressing applied Central Line Postion: Femoral (R) Anesthesia: Lidocaine (plain3 ml) Complications: None Central Line Post Position: Sutured, Good blood return Re-Evaluation - Re-Evaluation Time of Re-Evaluation: 10:00 Status: Improved Vital Signs Stable: Yes Pain Level: 0 Appearance: Other (short of air mild improved markedly on o2) - Re-Evaluation Time of Re-Evaluation: 12:30 Status: Improved Vital Signs Stable: Yes Pain Level: 0 Appearance: NAD Skin: Warm and Dry Neuro: Alert and Oriented X3 CV: RRR Physician Notification - Case Discussed Physician Notified: pmd Time of Notification: 12:28 (saw the pt in the emergency room and examined all of the labs ) Admit/Transition Orders Entered by ED Provider: Yes Admit To: Inpatient Critical Care Note - Critical Care Note Total Time (mins): 60 Course - Course Hematology/Chemistry: 11/08/18 08:58 11/08/18 08:58 Orders, Labs, Meds: Lab Review 11/08/18 11/08/18 11/08/18 08:48 08:58 08:58 WBC 5.12 RBC 3.87 L Hgb 11.5 L Hct 34.7 L MCV 89.7 MCH 29.7 MCHC 33.1 RDW Coeff of Lynda 12.8 Plt Count 137 L Immature Gran % (Auto) 0.2 Neut % (Auto) 77.4 Lymph % (Auto) 15.4 Yell % (Auto) 6.8 Eos % (Auto) 0.0 Baso % (Auto) 0.2 Immature Gran # (Auto) 0.0 Neut # (Auto) 4.0 Lymph # (Auto) 0.8 Yell # (Auto) 0.4 Eos # (Auto) 0.0 Baso # (Auto) 0.0 Puncture Site R brach O2 Saturation 78.0 L ABG pH 7.328 L ABG pCO2 53.1 H ABG pO2 47.0 L* ABG HCO3 27.9 H ABG Total CO2 29 H ABG Base Excess 2 Aaron Test + FiO2 % 21.0 Sodium 133.9 L Potassium 3.86 Chloride 100.3 Carbon Dioxide 29.5 Anion Gap 7.96 BUN 17.0 Creatinine 1.53 H Estimated GFR (MDRD) 34.00 BUN/Creatinine Ratio 11.11 Glucose 107.8 H Lactic Acid Calcium 8.65 Total Bilirubin 0.27 AST 35.6 ALT 19.5 Alkaline Phosphatase 88.1 Total Creatine Kinase 351.3 H CK-MB (CK-2) 0.847 CK-MB (CK-2) % 0.2400 Troponin I < 0.012 Total Protein 7.54 Albumin 3.85 Globulin 3.69 Albumin/Globulin Ratio 1.04 Procalcitonin Influ A Molecular Assay Influ B Molecular Assay 11/08/18 11/08/18 11/08/18 08:58 08:58 08:58 WBC RBC Hgb Hct MCV MCH MCHC RDW Coeff of Lynda Plt Count Immature Gran % (Auto) Neut % (Auto) Lymph % (Auto) Yell % (Auto) Eos % (Auto) Baso % (Auto) Immature Gran # (Auto) Neut # (Auto) Lymph # (Auto) Yell # (Auto) Eos # (Auto) Baso # (Auto) Puncture Site O2 Saturation ABG pH ABG pCO2 ABG pO2 ABG HCO3 ABG Total CO2 ABG Base Excess Aaron Test FiO2 % Sodium Potassium Chloride Carbon Dioxide Anion Gap BUN Creatinine Estimated GFR (MDRD) BUN/Creatinine Ratio Glucose Lactic Acid 0.78 Calcium Total Bilirubin AST ALT Alkaline Phosphatase Total Creatine Kinase CK-MB (CK-2) CK-MB (CK-2) % Troponin I Total Protein Albumin Globulin Albumin/Globulin Ratio Procalcitonin 0.06 Influ A Molecular Assay Positive by naat H Influ B Molecular Assay Negative by naat Orders Category Date Time Status ABG DRAW REQUEST Stat CARDIO 11/08/18 08:48 Completed ABG DRAW REQUEST Stat CARDIO 11/08/18 11:56 Ordered EKG-(ED ONLY) Stat CARDIO 11/08/18 08:28 Completed NEBULIZER TREATMENT Stat CARDIO 11/08/18 08:29 Completed NPO REMINDER: IMAGING ONCE CARE 11/08/18 10:08 Completed NPO REMINDER: IMAGING ONCE CARE 11/08/18 10:10 Completed ED IV/MEDIPORT/POWERPORT .ONCE EMERGENCY 11/08/18 08:28 Active ABG Stat LAB 11/08/18 08:48 Completed ABG Stat LAB 11/08/18 11:56 Ordered BLOOD CULTURE (ED ONLY) Stat LAB 11/08/18 08:58 Received CBC W/ AUTO DIFF Stat LAB 11/08/18 08:58 Completed COMPREHENSIVE METABOLIC PANEL Stat LAB 11/08/18 08:58 Completed CREATINE KINASE Stat LAB 11/08/18 08:58 Completed FLU A/B MOLECULAR Stat LAB 11/08/18 08:58 Completed LACTIC ACID Stat LAB 11/08/18 08:58 Completed MOLECULAR GROUP A STREP Stat LAB 11/08/18 08:58 Completed PROCALCITONIN Stat LAB 11/08/18 08:58 Completed TROPONIN I Stat LAB 11/08/18 08:58 Completed 0.9 % Sodium Chloride [Saline Flush] MEDS 11/08/18 08:28 Active 1 syr IVF PRN PRN Ceftriaxone Sodium [Rocephin] MEDS 11/08/18 10:33 Discontinued 2 gm .ROUTE .STK-MED ONE Ceftriaxone Sodium [Rocephin] 2 gm MEDS 11/08/18 08:29 Discontinued 0.9 % Sodium Chloride [Sodium Chloride] 100 ml IV ONCE Ipratropium/Albuterol Neb [Duoneb] MEDS 11/08/18 08:29 Discontinued 1 vial NEB ONCE STA Lidocaine HCl/Pf [Lidocaine HCl 1% Sdv] MEDS 11/08/18 09:39 Discontinued 5 ml .ROUTE .STK-MED ONE Methylprednisolone Sod Succ/Pf [Solu-Medrol 125 mg] MEDS 11/08/18 10:37 Discontinued 125 mg .ROUTE .STK-MED ONE Methylprednisolone Sod Succ/Pf [Solu-Medrol 125 mg] MEDS 11/08/18 08:29 Discontinued 125 mg IVP ONCE STA Sodium Chloride 0.9% [Sodium Chloride] 1,000 ml MEDS 11/08/18 08:29 Active IV 125 mls/hr CHEST, 1V AP ONLY Stat RADS 11/08/18 08:[address] CHEST W/O CONTRAST Stat RADS 11/08/18 10:27 Completed PELVIS 1 OR 2 VIEWS Stat RADS 11/08/18 10:28 Completed Medications Generic Name Dose Route Start Last Admin Trade Name Freq PRN Reason Stop Dose Admin Sodium Chloride 1,000 mls @ 125 mls/hr 11/08/18 08:29 11/08/18 10:00 Sodium Chloride IV 11/08/18 16:28 125 mls/hr .Q8H STA Administration Sodium Chloride 1 syr 11/08/18 08:28 Saline Flush IVF PRN PRN To flush IV Discontinued Medications Generic Name Dose Route Start Last Admin Trade Name Freq PRN Reason Stop Dose Admin Albuterol/Ipratropium 1 vial 11/08/18 08:29 11/08/18 08:53 Duoneb NEB 11/08/18 08:30 1 vial ONCE STA Administration Ceftriaxone Sodium 2 gm/ 100 mls @ 100 mls/hr 11/08/18 08:29 11/08/18 11:04 Sodium Chloride IV 11/08/18 09:28 100 mls/hr ONCE STA Administration Methylprednisolone Sodium Succinate 125 mg 11/08/18 08:29 11/08/18 11:04 Solu-Medrol 125 Mg IVP 11/08/18 08:30 125 mg ONCE STA Administration Vital Signs: Temp Pulse Resp BP Pulse Ox 11/08/18 08:10 99.8 F H 94 H 18 95/61 89 L Departure - Departure Time of Disposition: 12:30 (right and left neck attempted for superfical vein but line did not work . attempt was done under sterile conditions) Disposition: ADMITTED INPATIENT Discharge Problem: Shortness of breath, Influenza A, Pneumonia Renal failure Qualifiers: Chronic kidney disease stage: unspecified stage Anemia Qualifiers: Anemia type: unspecified type Qualified Code(s): D64.9 - Anemia, unspecified Acute respiratory failure Qualifiers: Respiratory failure complication: hypercapnia Qualified Code(s): J96.02 - Acute respiratory failure with hypercapnia Instructions: Anemia (ED) Condition: Good Pt referred to PMD for follow-up: Yes IPMP verified?: No Allergies/Adverse Reactions: Allergies haloperidol [From Haldol] Allergy (Severe, Verified 11/08/18 08:18) swelling in mouth Pt to get medical alert necklace haloperidol lactate [From Haldol] Allergy (Severe, Verified 11/08/18 08:18) swelling in mouth Pt to get medical alert necklace olanzapine [From Zyprexa] Adverse Reaction (Severe, Verified 11/08/18 08:18) Hives oxytetracycline [From Terramycin] Adverse Reaction (Severe, Verified 11/08/18 08 :18) Hives oxytetracycline HCl [From Terramycin] Adverse Reaction (Severe, Verified 08:18) Hives Sulfa (Sulfonamide Antibiotics) Adverse Reaction (Verified 11/08/18 08:18) Bacolfen Allergy (Severe, Uncoded 11/08/18 08:18) Anaphylaxis Home Medications: Ambulatory Orders Hydrocodone Bit/Acetaminophen [Lortab 10-500] 1 tab PO TID #1 11/02/14 Quetiapine Fumarate [Seroquel] 600 mg PO BEDTIME 10/29/16 Dicyclomine HCl 10 mg PO TID 11/21/16 Hydroxyzine HCl 25 mg PO BEDTIME 12/24/16 Zolpidem Tartrate [Ambien] 10 mg PO BEDTIME 10/08/17 Alprazolam [Xanax] 0.5 mg PO TID 01/04/18 Escitalopram Oxalate [Lexapro] 20 mg PO DAILY 07/22/18 Bismuth Subsalicylate [Pepto-Bismol] 262 mg PO TID 11/01/18 Disposition Discussed With: Patient, Family
[2018-11-08] MEDS ORDERED: ROCEPHIN ONE (10:33)
[2018-11-08] MEDS ORDERED: SOLU-MEDROL 125 MG ONE (10:37)
--- NOTE | 2018-11-08 10:55 | DI ---
EXAM: Pelvis one-view HISTORY: Right femoral line COMPARISON: None TECHNIQUE: Single view pelvis was performed FINDINGS: There is a right femoral line that terminates in the right medial thigh region just inferi or to the level of the lesser trochanter. Subacute appearing fracture of the left superior pubic ney us. Remodeling right inferior pubic ramus, likely due to old healed fracture. Left femoral ORIF. IMPRESSION: 1. Right femoral line that terminates in the right medial thigh region just inferior to the level of the lesser trochanter. 2. Subacute appearing fracture of the left superior pubic ramus. 3. Remodeling right inferior pubic ramus, likely due to old healed fracture. 4. Left femoral ORIF.
--- NOTE | 2018-11-08 11:34 | CT ---
EXAM: CT chest without contrast HISTORY: Short of air COMPARISON: 08/02/2018 TECHNIQUE: CT chest performed without intravenous contrast. Coronal and sagittal reformatted images obtained. FINDINGS: Thyroid and thoracic inlet appear normal. Left-sided cardiac pacer. Heart normal in size . No pericardial effusion. Coronary calcifications. Aorta normal in caliber. Moderate atheroscler osis. Esophagus unremarkable. Evaluation for lymphadenopathy limited without contrast. No lymphade nopathy identified. Granulomatous calcification. Postsurgical change left inferior kidney. No acut e abnormalities of the bones. Old bilateral rib fractures. Mild chronic loss of height of several v ertebral bodies. Central airway patent. Bilateral lower airway thickening. Mild patchy ground-glas s nodularity right lung with nodules measuring up to 5 mm image 37. No pleural effusion or pneumotho rax. IMPRESSION: 1. Findings suggesting small airways infection/inflammation. Patchy ground-glass nodularity in the right lung likely infectious/inflammatory pneumonitis. Recommend CT chest follow-up in 6 months give n the nodularity. 2. Emphysema. 3. Cardiac pacer. 4. Atherosclerosis. Coronary calcifications.
[2018-11-08] MEDS ORDERED: SODIUM CHLORIDE 1,000 ML IV SCH (13:00)
[2018-11-08] MEDS ORDERED: ZOFRAN ODT PO PRN (13:21)
--- NOTE | 2018-11-08 13:30 | PCM ---
- Chief Complaint Chief Complaint: Nausea/Vomiting, Influenza A, Shortness of Breath, JOSE JUAN - History of Present Illness History of Present Illness: 63 yo WF present in ER w/ Ex today, arrived 08:12 am w/ N/V, SOA. Whe was seen by SEUN Obrien11/01/18 w/ nausea x 1 week. She had used prilosec, carafate, nexium and pepto. Pepto provided some benefit to cramping epigastric region and to nausea. Sx will last 2-3 hours and then nausea will return. No diarrhea. Poor sleep, no other issues that she needed to report at that last OV. Weighed 175 lb per that note. Polypharmacy present w/ list of 19 medications. She was able to eat/drink. Fried foods and greasy foods cause gassiness/burning and upset stomach x 2-3 months. GB still intact. US of GB was completed and negative. She noted to INTERNATIONAL BANK MANAGER Camille that 10 minutes after eating epigastric pain 6/10, improved to 2/10 w/ pepto bismol. NO radiation, no chest/neck/arm pain. No other sick contacts. Chronic medical problems anxiety, pacemaker, COPD/Emphysema, depression,HTN, AWILDA using CPAP nightly. Denied ETOH use. Smokes 1 ppd 40+ years, not interested in quitting. Did request patch while in hospital (provided). At last OV she had CBC?CMP, Hpylori , lipase, US/RUQ, CT abd w/ contrast ordered. Reviewed imaging from chart Pelvis CT ordered 08/02/18 no fracture, chronic healed right sided pubic ramus fracture. RUQ US 11/02/18 showed small right renal cyst else normal RUQ US. No HIDA has been completed, CT abd was not completed. Patient arrived in ER at 08:12. Vitals reviewed temperature 99.8, pulse 94, RR 18 and BP 95/61. She did not meet SIRS criteria based on vitals and WBC was <12. Reported to ER SOA worsening 2 days, Nausea with about 3-4 total bouts of non bloody, mucoid, regurgitant emesis over past 1 week, no diarrhea. She notes SOA is intermittent , body aches, generalized 5/10 REESE, mild CALABRESE. NO Chest pain, no arm pain, no vision changes. Symptoms improved with remaining upright, using bronchodilator medications. URI symptoms x 2-3 days, subjective fever but none present now. Has been using tylenol. Smokes 1ppd, interested in patches as noted. Has been in bed more lately. Not using home o2, no recent stress test but not reporting chest pain. Not using accessory muscles in ER, diminished breath sounds present. DDX per ER included pulmonary edema, CHF, copd exacerbation, PNA, PE, URI. EKG within 10 minutes of arrival was non focal. ROS in ER as above, chills , fever subjectively, Weakness, loss of appetite. NO new falls, no altered mental status, no confusion, +Cough, +orthopnea, SOA, wheezing. Difficult IV initiation, central line placed into right femoral by DR. Valle. She was given O2 and improved. I saw patient at 12:28 am. WBC noted 5.12, anemia w/ hgb 11.5, plt 137. Sodium 133.9, K+ 3.86, cl 100.3, CO2 29.5. BUN 17, Cr 1.53 (baseline has been <1) an dglucose 107.8. ABG completed and evaluated by me personally. The pattern was a chronic primary respiratory acidosis with secondary metabolic acidosis. CK was elevatd 351.3, troponin was negative. Lactic acid was 0.78 and negative, procalcitonin was negative at 0.06. Flu A was Positive. In ER she had EKG, Neb tx, Blood culture, CBC/CMP, CK, LA, procalc , strep ordered, troponin. She was given rocephin 2gram, duoneb, solumedrol 125mg and imaging of chest w/ CXR, CT chest and pelvix Xray ordered. CT small airway inflammation/infection, pneumonitis is possible. Emphysema. Pelvis xray done after central line placed showed that right femoral line terminated at level of lesser trochanter. Home meds reviewed and I personally interviewed the patient. Jeff Ex in room, permission given to speak freely. She has been feeling poorly for about 2 weeks w/ epigastric like symptoms w/ suggestion of PUD. 1week worsening, met with INTERNATIONAL BANK MANAGER larrison as listed above. N/V but only a few non bloody emesis. No ETOH regularly, no increased ibuprofen. She has had mild decreased PO intake. No food 48 hours except a few peanutbutter crackers. Tolerating liquids. No diarrhea, no lower abominal pain /cramping. Cough has led to emesis. JOSE JUAN on labs, no recent nephrology eval ( nephrectomy). Urinates ~2-3x daily regularly. She has met with DR. Moran historically but not in a while. No known obvious exposures to flu but flu + now. +Gen REESE, no vision changes, no Chest pain, +SOA, +subjective fever. Again , she has not met SIRS criteria but now has JOSE JUAN, Respiratory difficulty w/ underlying chronic pulmonary disease. She has not had pneumonia or influenza vaccine. No history of DM personally for her. Reports no urinary symptoms. No vaginal discharge/bleeding. Normal BM regular yesterday. CrCl 46ml/min - Review of Systems Constitutional: fever, chills, weakness, fatigue, loss of appetite. No: sweats , other Eyes: other (glasses). No: blurred vision, double-vision, discharge, itching, pain, redness, photophobia Ears: No: pain, bleeding, drainage, ringing, hearing loss, other Nose: No: bleeding, congestion, discharge, other Throat: pain. No: swelling, voice change, other Mouth: No: bleeding, pain, swelling, other Respiratory: cough, shortness of air, wheeze, pain with breathing. No: hemoptysis, other Cardiovascular: orthopnea, other (pacemaker). No: chest pain, left arm pain, diaphoresis, PND, edema, palpitations, syncope Gastrointestinal: abdominal pain (epigastric), nausea, vomiting. No: other, diarrhea, melena, hematemesis, hematochezia, dysphagia, constipation Genitourinary: No: dysuria, hematuria, frequency, incontinence, flank pain, vaginal discharge Neurological: headache, dizziness. No: seizure, numbness, weakness, speech difficulty, problems with walking, tremor Musculoskeletal: pain (generalized body aches. ), swelling in joints (chronic rhematoid) Skin: No: rash, pruritus, lacerations, wounds, bruising, other Immunology: No: hives, itching, frequent infections, difficulty healing, other Hematology: No: easy bruising, easy bleeding, swollen glands, other Endocrine: No: weight changes, cold intolerance, heat intolerance, excessive thirst, excessive hunger, polyuria, other Psychiatric: depression, anxiety, other (schizophrenia, no SI/HI) Habits: tobacco use. No: substance use, alcohol use, other - Past Medical History Past Medical History: HTN, COPD, Asthma, pneumonia, anemia, gerd, CKD, CVA historically, schizoprhenia, arthritis (RA), colonic resection. Unknown LMP > 10 years ago. - Past Surgical History Past Surgical History: Appendectomy, pacemaker, left leg fracture (lorne in left leg) hip surgery, partial left nephrectomy, colon resection. - Allergies Allergies/Adverse Reactions: Allergies Allergy/AdvReac Type Severity Reaction Status Date / Time haloperidol [From Haldol] Allergy Severe swelling Verified 11/08/18 08:18 in mouth haloperidol lactate Allergy Severe swelling Verified 11/08/18 08:18 [From Haldol] in mouth olanzapine [From Zyprexa] AdvReac Severe Hives Verified 11/08/18 08:18 oxytetracycline AdvReac Severe Hives Verified 11/08/18 08:18 [From Terramycin] oxytetracycline HCl AdvReac Severe Hives Verified 11/08/18 08:18 [From Terramycin] Sulfa (Sulfonamide AdvReac Verified 11/08/18 08:18 Antibiotics) [place] Allergy Severe Anaphylaxis Uncoded 11/08/18 08:18 - Medications Medications: Medications Generic Name Dose Route Start Last Admin Trade Name Freq PRN Reason Stop Dose Admin Hydrocodone Bitart/Acetaminophen 1 tab 11/08/18 15:00 [place] 10-325 PO TID FAUSTINO Albuterol/Ipratropium 1 vial 11/08/18 18:00 Duoneb NEB RTQ6H FAUSTINO Alprazolam 0.5 mg 11/08/18 15:00 Xanax PO TID FAUSTINO Dicyclomine HCl 10 mg 11/08/18 15:00 Bentyl PO TID FAUSTINO Escitalopram Oxalate 20 mg 11/09/18 09:00 Lexapro PO DAILY FAUSTINO Gabapentin 300 mg 11/08/18 15:00 Neurontin PO TID FAUSTINO Sodium Chloride 1,000 mls @ 125 mls/hr 11/08/18 08:29 11/08/18 10:00 Sodium Chloride IV 11/08/18 16:28 125 mls/hr .Q8H STA Administration Ceftriaxone Sodium 1 gm/ 50 mls @ 75 mls/hr 11/09/18 09:00 Sodium Chloride IV DAILY FAUSTINO Lisinopril 40 mg 11/09/18 09:00 Zestril PO DAILY [facility] Metoprolol Tartrate 50 mg 11/08/18 21:00 Lopressor PO BID FAUSTINO Omeprazole 20 mg 11/09/18 06:30 Prilosec PO QDAC FAUSTINO Ondansetron HCl 4 mg 11/08/18 13:21 Zofran Odt PO TID PRN Nausea / Vomiting Oseltamivir Phosphate 30 mg 11/08/18 21:00 Tamiflu PO BID FAUSTINO Quetiapine Fumarate 600 mg 11/08/18 21:00 Seroquel PO BEDTIME FAUSTINO Sodium Chloride 1 syr 11/08/18 08:28 Saline Flush IVF PRN PRN To flush IV Zolpidem Tartrate 10 mg 11/08/18 21:00 Ambien PO BEDTIME FAUSTINO - Family History Past Family History: Brain cancer, liver cancer. MOther/father . Mother with liver disease and cancer. Father with brain cancer, lung cancer kidney disease. - Social History Past Social History: Everyday smoker 1ppd. Ex still in life. NO drugs, no ETOH. [employer]. . - Vital Signs Temperature: 99.8 F Pulse Rate: 94 Respiratory Rate: 18 Blood Pressure: 95/61 O2 Sat by Pulse Oximetry: 89 - Body Composition Height: 5 ft 5 in Weight: 169 lb 4.8 oz Body Mass Index (BMI): 28.1 - Physical Examination HEENT: Constitutional: Appearance-No acute respiratory distress, Consistent with stated age. Orientation- Oriented x 3, alert Build and Nutrition-[mildly overweight BMI 28] General- Patient is pleasant and cooperative with the interview and exam. Integumentary: General-No rashes, ulcers or lesions. Palpation- Normal skin moisture/turgor. Skin is warm to touch, appropriate. Capillary refill is normal bilateral Upper and lower extremity. Small abrasion right medial oneill proximally. No e/o secondary infection. Head/Neck: Head- normocephalic and atraumatic. Neck- without visible/palpable lumps or pulsations. Palpation- No bony tenderness about head/neck along frontal, occipital, temporal, parietal, mastoid, jawline, zygoma, orbit or any other location. NO temporal artery tenderness. No TMJ tenderness. Neck Supple. Thyroid-No thyromegaly, no nodules Eye: Bilaterally PERRLA, EOMI. No discharge. Upper and lower eyelids are normal. Sclera/conjunctiva normal without discharge. Cornea is normal and clear. Lens is normal. Eyeball appears normal. No ciliary flushing, no conjunctival injection. ENMT: Pinna- normal without tenderness or erythema. External auditory canal Left- normal without erythema or discharge, no excessive cerumen. External auditory canal Right-normal without erythema or discharge, no excessive cerumen. TM left- Cuellar/pearly, normal light reflex and anatomy TM Right- Cuellar/ pearly, normal light reflex and anatomy Hearing Assessment-normal to conversational speech. Nose and sinus- No sinus tenderness along frontal/ maxillary region. External appearance normal and midline. Nares- bilateral quiet airflow, no discharge. Nasal mucosa- No bleeding noted and no ulcerations observed. [place], moist. Turbinates boggy. Lips- normal color, moist without cracks/lesions Oral Cavity/Palate- hard/soft palate intact without lesions, oral mucosa pink and moist. Oropharynx- no pharyngeal erythema, Uvula midline. No post nasal drip. No exudate. Salivary glands- Non tender to palpation CHEST/LUNG: Inspection- symmetric chest wall no pectus deformity. Normal effort , no distress, no use of accessory muscles. Palpation- nontender sternum, ribline. No abnormal pulsations. Auscultation- Breath sounds diminished throughout all lung pierce. Tracheal sounds, bronchial sounds overlying sternum , Bronchovessicular sounds between scapulae posteriorly, vessicular breath sounds heard throughout periphery coarse. Scattered rhonchi. Intermittent crackles. No egophany, no pectoriloquy. Adventitious sounds- Scattered wheezes, infrequent bibasilar crackling and scattered rhonchi. CARDIOVASCULAR: Jugular vein- no pulsations. Palpation/Percussion- Normal PMI, no palpable thrill Auscultation- Distant heart sounds. Regular rate and rhythm. No appreciable/prominent murmur noted in sitting, supine positions. Extremities - no digital clubbing, cyanosis, edema, increased warmth. ABDOMEN: Inspection- normal and no visible pulsations. Normal contour. Auscultation- Bowel sounds normal, no abdominal bruits. Palpation/Percussion- soft, non-tender, no rebound tenderness, no rigidity (guarding), no jar tenderness, no masses. Liver-no hepatomegaly, Spleen no splenomegaly, Hernias - none. Rectal not examined. Peripheral Vascular: Upper extremity Left- Normal temperature with pink nailbeds and no ulcerations. Upper extremity Right- Normal temperature with pink nailbeds and no ulcerations. Lower extremity- Normal temperature with pink nailbeds and no ulcerations. DP pulses 2+ bilaterally. Pedal hair intact. Normal capillary refill. Edema- No edema. Musculoskeletal: Generalized-No generalized swelling or edema of extremities, no digital clubbing or cyanosis, neurovascularly intact all four extremities. Upper extremity- Symmetrical posture. No visible deformity. Normal sensation along medial and lateral upper extremity proximally and distally. NO tenderness overlying shoulder, lateral/medial epicondyle. Desk Pen Set Assembler 5/5 and strength 5/5 bilateral UE. Elbow palpated, no tenderness overlying olecranon. Normal supination, pronation to active/passive ROM and to resisted rotation. Bicep insertion/tricep insertion appear normal without obvious pathology. Rotator cuff evaluated and intact. Normal wrist ROM bilaterally. Normal hand movement, intrinsic muscles of hands normal. No tenderness to palpation of hands/wrists/ elbows. Lower extremity- Hip: Not tender to palpation, no pain, no swelling, edema or erythema of surrounding tissue, normal strength and tone. Normal appearing hip ROM bilaterally without pain. Knee: Knee ROM normal. No tenderness overlying trochanters, no tenderness about patella, quad tendon, patellar tendon. No tenderness at tibial tuberosity. Central line present into right femoral. Spine/Ribs- No deformities, masses or tenderness, no known fractures, normal strength, Normal ROM. Normal stability No tenderness along C/T/L spine. Normal appearing ROM about spine. Neurological: General- Moves all 4 extremities symmetrically. Symmetrical face and body posture. Cranial nerves- individually evaluated II-XII and intact. PERRLA, Normal EOMI, visual/special senses appear intact, Face is symmetrical and normal sensation/movement, normal tongue, normal strength/posture of neck musculature. Reflexes- intact with DTR 2+ patellar, Achilles, bicep, brachial, tricep. Ankle clonus normal with 2 beats. Strength- 5/5 bilateral UE and LE. Soft touch- intact bilateral UE and LE. Temperature sensation- intact bilateral UE and LE. Neuropsych: Oriented- Person, place, time. (AAOx3), Mood/affect- normal and congruent. Able to articulate well. Speech-Normal speech, normal rate, normal tone, normal use of language, volume and coherence. Thought content- normal with ability to perform basic computations and apply abstract thought/reason. Associations- intact, no SI/HI, no hallucinations, delusions, obsessions. Judgment/insight- Appropriate. Memory-Recall intact, remote and recent memory intact. Knowledge- Age appropriate fund of knowledge, concentration and attention span normal. Lymphatic: Head/Neck- normal size and non tender to palpation. Axillary- normal size and non tender to palpation. Femoral and Inguinal- normal size and non tender to palpation. - Lab/Tests/Diagnostic Imaging Lab/Tests/Diagnostic Imaging: Laboratory Last Values WBC 5.12 K/ul (4.6-10.2) 11/08/18 08:58 RBC 3.87 10^6/ul (4.20-5.40) L 11/08/18 08:58 Hgb 11.5 g/dl (12.0-16.0) L 11/08/18 08:58 Hct 34.7 % (37.0-47.0) L 11/08/18 08:58 MCV 89.7 fl (81.0-99.0) 11/08/18 08:58 MCH 29.7 pg (27.0-31.0) 11/08/18 08:58 MCHC 33.1 (31.8-35.4) 11/08/18 08:58 RDW Coeff of Lynda 12.8 % (11.6-14.8) 11/08/18 08:58 Plt Count 137 10^3/uL (140-440) L 11/08/18 08:58 Immature Gran % (Auto) 0.2 % (0.0-5.0) 11/08/18 08:58 Neut % (Auto) 77.4 11/08/18 08:58 Lymph % (Auto) 15.4 (10.0-50.0) 11/08/18 08:58 [place] % (Auto) 6.8 (0-10) 11/08/18 08:58 Eos % (Auto) 0.0 % (0.0-7.0) 11/08/18 08:58 Baso % (Auto) 0.2 % (0.0-3.0) 11/08/18 08:58 Immature Gran # (Auto) 0.0 (0.0-1.0) 11/08/18 08:58 Neut # (Auto) 4.0 K/ul (2.0-6.9) 11/08/18 08:58 Lymph # (Auto) 0.8 K/uL (0.60-3.4) 11/08/18 08:58 [place] # (Auto) 0.4 K/uL (0.4-2.0) 11/08/18 08:58 Eos # (Auto) 0.0 K/ul (0.0-0.7) 11/08/18 08:58 Baso # (Auto) 0.0 K/uL (0-0.2) 11/08/18 08:58 Puncture Site R radial 11/08/18 11:56 O2 Saturation 98.0 % (95-100) 11/08/18 11:56 ABG pH 7.323 (7.35-7.45) L 11/08/18 11:56 ABG pCO2 54.9 mmHg (35-45) H 11/08/18 11:56 ABG pO2 115.0 mmHg (85-100) H 11/08/18 11:56 ABG HCO3 28.4 (22.0-26.0) H 11/08/18 11:56 ABG Total CO2 30 (22.0-28.0) H 11/08/18 11:56 ABG Base Excess 2 (-2.0-2.0) 11/08/18 11:56 Aaron Test + 11/08/18 11:56 O2 Delivery Device Nc 11/08/18 11:56 Oxygen Liter Flow 2.00 11/08/18 11:56 FiO2 % 21.0 % 11/08/18 08:48 Sodium 137.5 mmol/L (134.5-145) 11/09/18 02:30 Potassium 5.02 mmol/L (3.5-5.1) 11/09/18 02:30 Chloride 103.2 mmol/L (98-107) 11/09/18 02:30 Carbon Dioxide 24.2 mmol/L (22-30.0) 11/09/18 02:30 Anion Gap 15.12 11/09/18 02:30 BUN 22.2 mg/dL (7-17) H 11/09/18 02:30 Creatinine 1.41 mg/dL (0.60-1.30) H 11/09/18 02:30 Estimated GFR (MDRD) 38.00 mL/min 11/09/18 02:30 BUN/Creatinine Ratio 15.74 11/09/18 02:30 Glucose 143.4 mg/dL (74-106) H 11/09/18 02:30 Lactic Acid 0.78 mmol/L (0.7-2.1) 11/08/18 08:58 Calcium 8.64 mg/dL (8.4-10.2) 11/09/18 02:30 Total Bilirubin 0.31 mg/dL (0.2-1.3) 11/09/18 02:30 AST 31.7 U/L (14-36) 11/09/18 02:30 ALT 16.5 U/L (0-35) 11/09/18 02:30 Alkaline Phosphatase 75.2 U/L (53-141) 11/09/18 02:30 Total Creatine Kinase 303.2 U/L (30-135) H 11/09/18 02:30 CK-MB (CK-2) 1.420 ng/ml (0.0-2.38) 11/09/18 02:30 CK-MB (CK-2) % 0.4600 11/09/18 02:30 Troponin I < 0.012 ng/ml (0.0000-0.120) 11/08/18 08:58 Total Protein 7.30 g/dL (6.3-8.2) 11/09/18 02:30 Albumin 3.52 g/dL (3.5-5.0) 11/09/18 02:30 Globulin 3.78 11/09/18 02:30 Albumin/Globulin Ratio 0.93 11/09/18 02:30 Procalcitonin 0.06 ng/mL (0.09) 11/08/18 08:58 Influ A Molecular Assay Positive by naat (NEGATIVE) H 11/08/18 08:58 Influ B Molecular Assay Negative by naat (NEGATIVE) 11/08/18 08:58 Chest XR: Mild central vascular congestion CT Chest without: Findings suggesting small airways infection/inflammation. Patchy ground glass nodularity in right lung likely infectious/inflammatory pneumonitis. CT chest f/u in 6 months recommended. Emphysema, cardiac pacer, atherosclerosis. Pelvis XR: Right Femoral Line that terminates in right medial thigh just inferior to level of lesser trochanter. ASubactue fracture left superior pubic ramus. remodeling of tirhg inferior pubic ramus old healed fracture. Left femoral ORIF. - Assessment (1) Influenza A Status: Acute Code(s): J10.1 - FLU DUE TO OTH IDENT INFLUENZA VIRUS W OTH RESP MANIFEST SNOMED Code(s): 284049048 (2) Anemia Status: Acute Code(s): D64.9 - ANEMIA, UNSPECIFIED SNOMED Code(s): 446269160 Qualifiers: Anemia type: unspecified type Qualified Code(s): D64.9 - Anemia, unspecified (3) Thrombocytopenia Status: Acute Code(s): D69.6 - THROMBOCYTOPENIA, UNSPECIFIED SNOMED Code(s) : 048043017 (4) Renal failure Status: Acute Code(s): N19 - UNSPECIFIED KIDNEY FAILURE SNOMED Code(s): 17750418 Qualifiers: Chronic kidney disease stage: unspecified stage (5) Shortness of breath Status: Acute Code(s): R06.02 - SHORTNESS OF BREATH SNOMED Code(s): 179139669 - Plan Plan: Influenza A: Acute URI illness of about 5 days but with SOA and concern for worsening. Differential at this time includes viral URI with other viruses to include flanagan virus, adeno virus and parainfluenza virus to name a few. This season, influenza A(H1N1) has been the main virus. The patient/family and I discussed Tamiflu today. We discussed antibiotics are not recommended for this treatment at present. The patient voiced understanding. We discussed molecular flu has 97.9% sensitivity and 86.2% specificity for flu a and 92.5% sensitivity and 96.5 Specificity for flu B. Clinical predictors support flu as most likely (Fever, myalgia, fatigue, REESE, GI upset/nausea and body aches). R/B/ A to GC d/w family today. Discussed risks of oral and injectable steroids and elevated mortality risks. Typical illness lasts roughly 5 days. Reviewed higher risks groups <5 yr old, >65, Chronic medical problems. Reviewed Tamiflu benefits and risks discussed, dose and frequency discussed. Most common side effects are nausea and vomiting in up to 10-15% of people. Usually short lived and last a few days. Take with food. Rare cases of seizures, confusion, abnormal behavior and may happen in people not taking Tamiflu. Allergic reactions can happen. Antiviral Treatment is usually BID x 5 days. Patient seen in ER. - Admit to room 120-1 inpatient - Droplet isolation - Tamiflu 30mg BID based on CrCl of 46ml/min adjust w/ renal function. - O2 titrate to 92-98%. - Repeat CBC/CMP in am. - Encourage OOB during day. - Continue abx overnight, monitor. Consider d/c in the am. JOSE JAUN: We will fluid hydrate at just over maintenance at 125ml/hour. We will repeat CMP in am. Last Creatinine appeared 0.89 about 2 weeks ago 10/25/18 and ranges 0.85 to 1.13 since 2016. Has had partial left nephrectomy. Nausea and decreased PO intake may be partially to blame. - Vascular access is poor, femoral central line is in and running. - CMP in am. Epigastric Pain: Suspect PUD as most likely etiology. Some benefit from peptobismol. I will have her f/u with GI as outpatient. Not using ETOH, denied increased NSAIDS. - Monitor for now. - Consider stool hemoccult. Chronic anemia: MIld. Normocytic. Monitor CBC, repeat in am. - CBC in am Thrombocytopenia: Monitor CBC, repeat in am. - CBC in am. Tobacco: Tobacco Cessation discussed today for 2 minutes. We reviewed lifestyle choices and discussed quitting. Ready to quit status discussed. The risks and hazards of continued tobacco abuse were discussed with the patient today and total tobacco cessation as recommended. It was clearly and unambiguously explained that continued tobacco usage will adversely affect overall morbidity and mortality of the patient. Patient was informed that tobacco use can lead to numerous cancers, worsening of cardiovascular and pulmonary systems and that lung damage is often permanent and irreversible. I advised the patient to inform me if any further assistance is requested, as we can offer counseling services, nicotine replacement inhaled, patch, lozenge, gum, or prescription medications to include Chantix or Wellbutrin for assistance. I will reassess the interest in tobacco cessation at the next and all subsequent visits. - Nicoderm 21mg patch. R/B/A d/w patient. DVT Prophy: Lovenox - 40 mg subcutaneous Diet: Regular Activity: UP with assist. Isolation: Droplet. Maintenance fluids: 117ml/hour, 1.5x maintenance is 175ml/hour. Sodium/K+ are okay for now. We will repeat CMP in am tomorrow. - Will run at 125ml/hour for now. Pending Labs: Culture of blood. - Await blood culture. Polypharmacy: Will need to address as outpatient. Disposition: I suspect patient has PUD as cause of her epigastric symptoms. MInimal emesis over last week, but decreased PO intake. Weight is down ~5 lb. She has polypharmacy that is concerning. Psychiatric history, stable at present. CrCl measured and we will dose tamiflu based on this finding. Fluid hydration as above. Vaccinations 1 week after d/c as currently ill. She has normal WBC, no fever in hospital, did not meet SIRS criteria, sepsis markers are negative. I will admit to inpatient, treat over next 24-48 hours w/ expected length of stay 2-3 days. Current plan is d/c 11/10/18 to 11/11/18. Abx overnight, reassess need in am. Imaging does not support the need for abx at this time, vitals/patient status also do not support them. >70 minutes spent with patient today and on admission. Talked with patient/ex-, obtained information from ER, reviewed radiology/labs/telemetry/independently reviewed ABG. Reviewed last chart note in computer.
[2018-11-08] MEDS ORDERED: NON-FORMULARY MEDICATION (Hydrocodone Bit/Acetaminophen 1 TAB) PO SCH (15:00)
[2018-11-08] MEDS: DUONEB NEB SCH ×2 (17:14→23:30)
[2018-11-08] MEDS: BENTYL PO SCH ×2 (17:34→20:30)
[2018-11-08] MEDS: NEURONTIN PO SCH ×2 (17:35→20:30)
[2018-11-08] MEDS: XANAX PO SCH ×2 (17:35→20:29)
[2018-11-08] MEDS: NORCO 10-325 PO SCH ×2 (17:35→20:30)
[2018-11-08] MEDS: AMBIEN PO SCH (20:29)
[2018-11-08] MEDS: SEROQUEL PO SCH (20:30)
[2018-11-08] MEDS: LOPRESSOR PO SCH (20:30)
[2018-11-08] MEDS: TAMIFLU PO SCH ×2 (20:31→20:38)
[2018-11-08] MEDS ORDERED: NON-FORMULARY MEDICATION (Zolpidem Tartrate [Ambien] 10 MG) PO SCH (21:00)
[2018-11-08] MEDS ORDERED: NON-FORMULARY MEDICATION (Quetiapine Fumarate [Seroquel] 600 MG) PO SCH (21:00)
[2018-11-08] MEDS ORDERED: SOLU-MEDROL 40 MG IVP SCH (21:00)
[2018-11-08] MEDS ORDERED: LOVENOX SUBCUT SCH (22:30)
[2018-11-09] MEDS: DUONEB NEB SCH ×4 (05:27→23:15)
[2018-11-09] MEDS: PRILOSEC PO SCH (05:53)
[2018-11-09 06:40] VITALS: BMI 28.1
--- NOTE | 2018-11-09 07:38 | PCM.PROG ---
Subjective: 63 yo WF HD 2 admitted w/ Influenza A, SOA, JOSE JUAN, anemia and generalized malaise. Checked on patient at 6:50 this am and reviewed case with ON nurse, talked with case management, reviewed am labs and telemetry. She has been SR/ SB AV paced through the night. NO complaints, vitals remained stable, afebrile and still does not meet sirs criteria. O2 saturation 87-92 2L. She still c/o abdominal pain. REESE is better, 11/28 today. She has slept well throughout the night and has no new c/o this am. Labs this am showed CMP 137.5 sodium, 5.02 potassium, 103.2 cl, BUN has increased from 17 to 22.2 but creatinine has decreased from 1.53 to 1.41. Her CrCl has increased from 46ml/min to 50ml/min. She had no reported Uout overnight. Talked with nurses. They have done a bladder scan and she did have a large void this am. Documentation of these are pending. Reviewed overnight notes. She does want influenza vaccine and pneumonia vaccine. I will have her f/u as outpatient in 1 week and get her these vaccines. Some benefit to other strains of flu within vaccine. This am she feels better, she noted abdominal pain is less prominent, renal function is improving, discussed polypharmacy with her. Discussed that we would stop abx at this time as she does not appear to have pneumonia. Mild COPD exacerbation is possible, we will continue steroid by mouth, duonebs QID. She reports nausea has resolved. She had no additional questions this am. Aware of plan to return home once renal function improving. REVIEW OF SYMPTOMS: (Positives bolded) General: weight loss, fever, chills, night sweats, fatigue, appetite loss (ate 10% of meal) HEENT: blurry vision, eye pain, eye discharge, dry eyes, decreased vision, sore throat tinnitus, bloody nose, hearing loss, sinus pain/pressure, ear pain/ pressure. Respiratory: shortness of breath, cough, hemoptysis, wheezing, pleurisy, Cardiovascular: chest pain, PND, palpitation, edema, orthopnea, syncope, swelling of extremities Gastro: Nausea (RESOLVED), vomiting, diarrhea, hematemesis, abdominal pain, constipation Genito: hematuria, dysuria, glycosuria, hesitancy, frequency, incontinence [place]: Arthralgia, myalgia, muscle weakness, joint swelling, NSAID use Skin: rash, pruritis, sores, nail changes, skin thickening, change in wart/mole , itching, rash, new lesions, pruritus, nail changes (lesion right medial oneill, abrasion unchanged, no e/o secondary infection). Neuro: REESE (better), numbness, ataxia, tremor, vertigo, weakness (Chronic), memory loss (Chronic), Irritability, dizziness Endocrine: excessive thirst, polyuria, cold intolerance, heat intolerance, goiter Psychiatric: depression (CHronic), anxiety (CHRONIC),alcohol abuse, drug abuse, insomnia, change in sleep pattern and mood changes Heme/lymph: easy bruising, bleeding gums, blood clots, swollen glands, lymphedema, Allergic/immune: allergic rhinitis, hay fever, hives Objective: Vital Signs Temp Pulse Resp BP Pulse Ox 11/09/18 07:39 99.8 F H 94 H 18 95/61 89 L 11/09/18 06:00 60 16 106/78 87 L 11/09/18 02:00 60 92 L 11/08/18 22:00 97.6 F 60 16 120/50 L 88 L 11/08/18 17:43 94 L 11/08/18 17:40 98.5 F 61 14 134/77 86 L 11/08/18 14:54 99.0 F 68 20 95 11/08/18 08:10 99.8 F H 94 H 18 95/61 89 L Constitutional: Appearance-No acute respiratory distress, sleeping upon entry, easily awoken. She is consistent with stated age. Orientation- Oriented x 3, alert talking quietly. Build and Nutrition-[mildly overweight BMI 28] General- Patient is pleasant and cooperative with the interview and exam. Integumentary: General-No rashes, ulcers or lesions. Palpation- Normal skin moisture/turgor. Skin is warm to touch, appropriate. Capillary refill is normal bilateral Upper and lower extremity. Abrasion right medial oneill, stable/ unchanged. . ENMT: Nose and sinus- No sinus tenderness along frontal/maxillary region. External appearance normal and midline. Nares- bilateral quiet airflow, no discharge. Nasal mucosa- No bleeding noted and no ulcerations observed. [place], moist. Turbinates boggy. Lips- normal color, moist without cracks/lesions Oral Cavity/Palate- hard/soft palate intact without lesions, oral mucosa pink and moist. Oropharynx- no pharyngeal erythema, Uvula midline. No post nasal drip. No exudate. CHEST/LUNG: Inspection- symmetric chest wall no pectus deformity. Normal effort , no distress, no use of accessory muscles. Palpation- nontender sternum, ribline. No abnormal pulsations. Auscultation- Breath sounds diminished throughout all lung pierce. Tracheal sounds, bronchial sounds overlying sternum , Bronchovessicular sounds between scapulae posteriorly, vessicular breath sounds heard throughout periphery coarse. Scattered rhonchi. Intermittent crackles. No egophany, no pectoriloquy. Adventitious sounds- Scattered wheezes, infrequent bibasilar crackling and scattered rhonchi. Unchanged from exam yesterday. Perhaps deeper inspiration. CARDIOVASCULAR: Jugular vein- no pulsations. Palpation/Percussion- Normal PMI, no palpable thrill Auscultation- Distant heart sounds. Regular rate and rhythm. No appreciable/prominent murmur noted in sitting, supine positions. Extremities - no digital clubbing, cyanosis, edema, increased warmth. ABDOMEN: Inspection- normal and no visible pulsations. Normal contour. Auscultation- Bowel sounds normal, no abdominal bruits. Palpation/Percussion- soft, non-tender, no rebound tenderness, no rigidity (guarding), no jar tenderness, no masses. Liver-no hepatomegaly, Spleen no splenomegaly, Hernias - none. Rectal not examined. Peripheral Vascular: No peripheral edema noted. Musculoskeletal: Generalized-No generalized swelling or edema of extremities, no digital clubbing or cyanosis, neurovascularly intact all four extremities. Neurological: General- Moves all 4 extremities symmetrically. Symmetrical face and body posture. Cranial nerves- individually evaluated II-XII and intact. PERRLA, Normal EOMI, visual/special senses appear intact, Face is symmetrical and normal sensation/movement, normal tongue, normal strength/posture of neck musculature. Neuropsych: Oriented- Person, place, time. (AAOx3), Mood/affect- normal and congruent. Able to articulate well. Speech-Normal speech, normal rate, normal tone, normal use of language, volume and coherence. Thought content- normal with ability to perform basic computations and apply abstract thought/reason. Associations- intact, no SI/HI, no hallucinations, delusions, obsessions. Judgment/insight- Appropriate. Memory-Recall intact, remote and recent memory intact. Knowledge- Age appropriate fund of knowledge, concentration and attention span normal. Lymphatic: Head/Neck- normal size and non tender to palpation. Laboratory Last Values WBC 2.46 K/ul (4.6-10.2) L 11/09/18 06:56 RBC 4.00 10^6/ul (4.20-5.40) L 11/09/18 06:56 Hgb 11.8 g/dl (12.0-16.0) L 11/09/18 06:56 Hct 35.8 % (37.0-47.0) L 11/09/18 06:56 MCV 89.5 fl (81.0-99.0) 11/09/18 06:56 MCH 29.5 pg (27.0-31.0) 11/09/18 06:56 MCHC 33.0 (31.8-35.4) 11/09/18 06:56 RDW Coeff of Lynda 12.6 % (11.6-14.8) 11/09/18 06:56 Plt Count 137 10^3/uL (140-440) L 11/09/18 06:56 Immature Gran % (Auto) 0.0 % (0.0-5.0) 11/09/18 06:56 Neut % (Auto) 75.2 11/09/18 06:56 Lymph % (Auto) 19.1 (10.0-50.0) 11/09/18 06:56 Mayes % (Auto) 5.7 (0-10) 11/09/18 06:56 Eos % (Auto) 0.0 % (0.0-7.0) 11/09/18 06:56 Baso % (Auto) 0.0 % (0.0-3.0) 11/09/18 06:56 Immature Gran # (Auto) 0.0 (0.0-1.0) 11/09/18 06:56 Neut # (Auto) 1.9 K/ul (2.0-6.9) L 11/09/18 06:56 Lymph # (Auto) 0.5 K/uL (0.60-3.4) L 11/09/18 06:56 Mayes # (Auto) 0.1 K/uL (0.4-2.0) L 11/09/18 06:56 Eos # (Auto) 0.0 K/ul (0.0-0.7) 11/09/18 06:56 Baso # (Auto) 0.0 K/uL (0-0.2) 11/09/18 06:56 Puncture Site R radial 11/08/18 11:56 O2 Saturation 98.0 % (95-100) 11/08/18 11:56 ABG pH 7.323 (7.35-7.45) L 11/08/18 11:56 ABG pCO2 54.9 mmHg (35-45) H 11/08/18 11:56 ABG pO2 115.0 mmHg (85-100) H 11/08/18 11:56 ABG HCO3 28.4 (22.0-26.0) H 11/08/18 11:56 ABG Total CO2 30 (22.0-28.0) H 11/08/18 11:56 ABG Base Excess 2 (-2.0-2.0) 11/08/18 11:56 Aaron Test + 11/08/18 11:56 O2 Delivery Device Nc 11/08/18 11:56 Oxygen Liter Flow 2.00 11/08/18 11:56 FiO2 % 21.0 % 11/08/18 08:48 Sodium 137.5 mmol/L (134.5-145) 11/09/18 02:30 Potassium 5.02 mmol/L (3.5-5.1) 11/09/18 02:30 Chloride 103.2 mmol/L (98-107) 11/09/18 02:30 Carbon Dioxide 24.2 mmol/L (22-30.0) 11/09/18 02:30 Anion Gap 15.12 11/09/18 02:30 BUN 22.2 mg/dL (7-17) H 11/09/18 02:30 Creatinine 1.41 mg/dL (0.60-1.30) H 11/09/18 02:30 Estimated GFR (MDRD) 38.00 mL/min 11/09/18 02:30 BUN/Creatinine Ratio 15.74 11/09/18 02:30 Glucose 143.4 mg/dL (74-106) H 11/09/18 02:30 Lactic Acid 0.78 mmol/L (0.7-2.1) 11/08/18 08:58 Calcium 8.64 mg/dL (8.4-10.2) 11/09/18 02:30 Total Bilirubin 0.31 mg/dL (0.2-1.3) 11/09/18 02:30 AST 31.7 U/L (14-36) 11/09/18 02:30 ALT 16.5 U/L (0-35) 11/09/18 02:30 Alkaline Phosphatase 75.2 U/L (53-141) 11/09/18 02:30 Total Creatine Kinase 303.2 U/L (30-135) H 11/09/18 02:30 CK-MB (CK-2) 1.420 ng/ml (0.0-2.38) 11/09/18 02:30 CK-MB (CK-2) % 0.4600 11/09/18 02:30 Troponin I < 0.012 ng/ml (0.0000-0.120) 11/08/18 08:58 Total Protein 7.30 g/dL (6.3-8.2) 11/09/18 02:30 Albumin 3.52 g/dL (3.5-5.0) 11/09/18 02:30 Globulin 3.78 11/09/18 02:30 Albumin/Globulin Ratio 0.93 11/09/18 02:30 Procalcitonin 0.06 ng/mL (0.09) 11/08/18 08:58 Influ A Molecular Assay Positive by naat (NEGATIVE) H 11/08/18 08:58 Influ B Molecular Assay Negative by naat (NEGATIVE) 11/08/18 08:58 (1) Thrombocytopenia Status: Acute Code(s): D69.6 - THROMBOCYTOPENIA, UNSPECIFIED SNOMED Code(s) : 579660277 (2) Anemia Status: Acute Code(s): D64.9 - ANEMIA, UNSPECIFIED SNOMED Code(s): 725175085 (3) Influenza A Status: Acute Code(s): J10.1 - FLU DUE TO OTH IDENT INFLUENZA VIRUS W OTH RESP MANIFEST SNOMED Code(s): 630579956 (4) Renal failure Status: Acute Code(s): N19 - UNSPECIFIED KIDNEY FAILURE SNOMED Code(s): 29213830 (5) Shortness of breath Status: Acute Code(s): R06.02 - SHORTNESS OF BREATH SNOMED Code(s): 814716603 Plan: Influenza A: Tamiflu 30 BID to continue as CrCl now at 50. When >60 resume 75 ml PO BID. Total 5 days. Improving/stable problem. I do not think that she has pneumonia. I have made decision to end abx by IV. O2 sats ~88%. No fever. WBC this am (I called lab to get this) 2.46 with ANC 1.9 and Hgb 11.8, plt 137. Her decreased WBC suggests viral process at this time. Rocephin will not provide benefit to patient at this time and I will d/c abx. There have been - Admit to room 120-1 inpatient Hospital Day 2 - Continue Droplet isolation - Continue Tamiflu 30mg BID based on CrCl of 50ml/min and we will continue to adjust w/ renal function. Complete 5 day course - O2 titrate to 92-98%. - Repeat CBC/CMP q am. - Encourage OOB during day. - Continue abx overnight, monitor. Consider d/c in the am. - Incentive spirometry, encourage deeper inspiration. - D/C abx. COPD: Mild exacerbation is possible, but she seems to be at baseline per her report. She has some hypoxia/anemia likely chronic. I will repeat ABG tomorrow. Continue her duoneb QID. NO abx for now. Will add prednisone 40mg daily. Will continue breathing meds. - ABG tomorrow. - Duoneb QID. - INcentive spirometry. JOSE JUAN: Improving, Creatinine has bumped from 1.53 to 1.41. GFR up to 38. We will continue to fluid hydrate at just over maintenance at 125ml/hour. We will continue to monitor/repeat CMP in am. I do not suspect that we will have her < 1.0 before d/c and I will set a goal of 1.1-1.2 for discharge. Creatinine baseline ranges 0.85 to 1.13 since 2016. Has had partial left nephrectomy. Nausea and decreased PO intake may be partially to blame. - Vascular access is poor, femoral central line is in and running. - CMP in am. - Nephrology f/u as outpatient. Epigastric Pain: Stable/better over last 24 hours. Still suspect PUD as most likely etiology. Some benefit from peptobismol, not using this in hospital. I will have her f/u with GI as outpatient. Not using ETOH, denied increased NSAIDS. - Continue Monitor for now. - Consider stool hemoccult. Chronic anemia: Mildly worse, hgb 11.8. Remains Normocytic per lab. Monitor CBC , repeat in am. - CBC in am Thrombocytopenia: Stable/unchanged. Monitor CBC, repeat in am. - CBC in am. Tobacco: Again d/w patient lifestyle choices and discussed quitting. Ready to quit status discussed, not interested but still wants patches. Will start these today. The risks and hazards of continued tobacco abuse were discussed with the patient today and total tobacco cessation as recommended. It was clearly and unambiguously explained that continued tobacco usage will adversely affect overall morbidity and mortality of the patient. Patient was informed that tobacco use can lead to numerous cancers, worsening of cardiovascular and pulmonary systems and that lung damage is often permanent and irreversible. I advised the patient to inform me if any further assistance is requested, as we can offer counseling services, nicotine replacement inhaled, patch, lozenge, gum , or prescription medications to include Chantix or Wellbutrin for assistance. I will reassess the interest in tobacco cessation at the next and all subsequent visits. - Nicoderm 21mg patch. R/B/A d/w patient. DVT Prophy: Lovenox Diet: Regular Activity: UP with assist. Isolation: Droplet. Maintenance fluids: Sodium/K+ remain stable. We will repeat CMP in am tomorrow. - Continue fluids at 125ml/hour for now. Pending Labs: Culture of blood. - Await blood culture. Polypharmacy: Chronic problem, stable. Kidney function is improving. Will need to address medications and psych meds specifically as outpatient. Disposition: Patient is stable/improved. Tolerating tamiflu. Renal function is improving. GI pain is better, rates this at 3/10 this am. She only ate 10% of food last night. She had a large void this am. No BM in hospital. No emesis in hospital. Femoral line in right femoral appears patent, no erythema, no e/o infection. Reviewed overnight labs, no new radiology, history obtained from overnight nurses, reviewed telemetry. Reviewed second ABG personally and still chronic resp acid with met acid. Directly independent review.MDM remains high based on number of problems. >30 minutes spent in rounding today.
[2018-11-09] MEDS ORDERED: NON-FORMULARY MEDICATION (Escitalopram Oxalate [Lexapro] 20 MG) PO SCH (09:00)
[2018-11-09] MEDS ORDERED: ROCEPHIN 1 GM in SODIUM CHLORIDE 50 ML IV SCH (09:00)
[2018-11-09] MEDS: SYMBICORT 160-4.5 MCG INHALER IH SCH ×2 (10:07→22:43)
[2018-11-09] MEDS: XANAX PO SCH ×3 (10:08→22:30)
[2018-11-09] MEDS: ZESTRIL PO SCH (10:08)
[2018-11-09] MEDS: FLEXERIL PO SCH ×2 (10:08→22:32)
[2018-11-09] MEDS: LEXAPRO PO SCH (10:08)
[2018-11-09] MEDS: TAMIFLU PO SCH ×2 (10:08→22:29)
[2018-11-09] MEDS: BENTYL PO SCH ×3 (10:09→22:29)
[2018-11-09] MEDS: NORCO 10-325 PO SCH ×3 (10:09→22:30)
[2018-11-09] MEDS: PREDNISONE PO SCH (10:09)
[2018-11-09] MEDS: NEURONTIN PO SCH ×3 (10:09→22:43)
[2018-11-09] MEDS: NICODERM 21 MG TD SCH (10:10)
[2018-11-09] MEDS: LOPRESSOR PO SCH ×2 (10:12→22:31)
--- NOTE | 2018-11-09 10:21 | DI ---
EXAM: CHEST FRONTAL VIEW HISTORY: Shortness of breath. COMPARISON: 11/08/2018 FINDINGS: Heart size approaching upper limit normal. Stable left-sided pacemaker unit. Redemonstra tion of subtle central vascular congestion which is less noticeable. Lungs are otherwise unremarkabl e. No pleural fluid or consolidated pneumonia. IMPRESSION: 1. Improved central vascular congestion currently minimal.
[2018-11-09] MEDS: SODIUM CHLORIDE 1,000 ML IV SCH ×2 (14:30→22:44)
[2018-11-09] MEDS: SEROQUEL PO SCH (22:26)
[2018-11-09] MEDS: AMBIEN PO SCH (22:31)
[2018-11-09] MEDS: LOVENOX SUBCUT SCH (22:32)
[2018-11-10] MEDS: DUONEB NEB SCH ×4 (04:52→19:40)
[2018-11-10] MEDS: PRILOSEC PO SCH (06:27)
[2018-11-10] MEDS: SODIUM CHLORIDE 1,000 ML IV SCH ×3 (08:00→23:34)
[2018-11-10] MEDS: BENTYL PO SCH ×3 (09:08→21:17)
[2018-11-10] MEDS: NEURONTIN PO SCH ×3 (09:08→21:17)
[2018-11-10] MEDS: PREDNISONE PO SCH (09:08)
[2018-11-10] MEDS: LOPRESSOR PO SCH ×2 (09:09→21:18)
[2018-11-10] MEDS: NORCO 10-325 PO SCH ×3 (09:09→21:17)
[2018-11-10] MEDS: TAMIFLU PO SCH ×2 (09:09→21:18)
[2018-11-10] MEDS: FLEXERIL PO SCH ×2 (09:09→21:18)
[2018-11-10] MEDS: ZESTRIL PO SCH (09:09)
[2018-11-10] MEDS: LEXAPRO PO SCH (09:09)
[2018-11-10] MEDS: XANAX PO SCH ×3 (09:09→21:18)
[2018-11-10] MEDS: NICODERM 21 MG TD SCH (09:10)
[2018-11-10] MEDS: SYMBICORT 160-4.5 MCG INHALER IH SCH ×2 (09:59→21:16)
[2018-11-10] MEDS: LOVENOX SUBCUT SCH (21:16)
[2018-11-10] MEDS: AMBIEN PO SCH (21:17)
[2018-11-10] MEDS: SEROQUEL PO SCH (21:17)
--- NOTE | 2018-11-10 22:40 | PCM.PROG ---
Subjective: 63 yr ol [facility] day 3 admitted 11/08/18 for Influenza A, SOA, JOSE JUAN w/ Creatinine 1.5 and GFR 38 down from normal levels, polypharmacy, difficult IV stick with need for central line, placed into femoral vein on right. Per overnight nursing the patient was found in bed with a pill from home, instructed to not take medications from home and to use hospital meds only. Telemetry overnight looked to be paced from AV node, she has pacemaker in place. #2 urine output. No BM. Vitals showed O2 ranged from 87-92 on O2. CMP reviewed and sodium stable 139.9, K+ 4.23, 106.2 cl, BUN 27.7 and Creatinine improved markedly to 1.10. Glucose 114.5. GFR up to 50. Calcium 8.32 and looks low but her albumin is 3.0 and corrects to 9.1. Still on droplet precautions. She has had some somnolence, worse around meds. Heart appears to be paced. She is on multiple medications. Afib was noted once but not long and not sustained. Talked about anticoag and not interested at this time. Continued fluid hydration at 125ml/hour. Creatinine is improving but not yet to baseline. Breathing is stable. Using O2. Polypharmacy is present. No abdominal pain this am. No Nu[place]a reported. She feels that this continues to improve. LUngs without consolidation. She has been out of bed minimally, recommended OOB as much as possible. She had no additional questions this am. Aware of plan to return home once renal function improving. Ex in room , had no additional questions today. Creatinine now up to 64ml/min. I will finish the 30mg BID while in hospital and change to Relenza as Tamiflu is not covered by insurance outpatient. REVIEW OF SYMPTOMS: (Positives bolded) Unchanged from yesterday. General: weight loss, fever, chills, night sweats, fatigue, appetite loss (Not hungry) HEENT: blurry vision, +GLASSES eye pain, eye discharge, dry eyes, decreased vision, sore throat tinnitus, bloody nose, hearing loss, sinus pain/pressure, ear pain/pressure. Respiratory: shortness of breath, cough, hemoptysis, wheezing, pleurisy, Using home o2. Cardiovascular: chest pain, PND, palpitation, edema, orthopnea, syncope, swelling of extremities Gastro: Nausea (RESOLVED), vomiting, diarrhea, hematemesis, abdominal pain, constipation Genito: hematuria, dysuria, glycosuria, hesitancy, frequency, incontinence Musckelo: Arthralgia, myalgia, muscle weakness, joint swelling, NSAID use Skin: rash, pruritis, sores, nail changes, skin thickening, change in wart/mole , itching, rash, new lesions, pruritus, nail changes (lesion right medial oneill, abrasion unchanged, no e/o secondary infection). Neuro: REESE (None today), numbness, ataxia, tremor, vertigo, weakness (Chronic), memory loss (Chronic), Irritability, dizziness Endocrine: excessive thirst, polyuria, cold intolerance, heat intolerance, goiter Psychiatric: depression (CHRONIC), anxiety (CHRONIC),alcohol abuse, drug abuse, insomnia, change in sleep pattern and mood changes Heme/lymph: easy bruising, bleeding gums, blood clots, swollen glands, lymphedema, Allergic/immune: allergic rhinitis, hay fever, hives Objective: Vital Signs (72 hours) 11/08/18 11/08/18 11/08/18 08:10 14:54 17:40 Temperature 99.8 F H 99.0 F 98.5 F Pulse Rate 94 H 68 61 Respiratory 18 20 14 Rate Blood Pressure 95/61 134/77 O2 Sat by Pulse 89 L 95 86 L Oximetry 11/08/18 11/08/18 11/09/18 17:43 22:00 02:00 Temperature 97.6 F Pulse Rate 60 60 Respiratory 16 Rate Blood Pressure 120/50 L O2 Sat by Pulse 94 L 88 L 92 L Oximetry 11/09/18 11/09/18 11/09/18 06:00 14:00 17:00 Temperature 97.6 F Pulse Rate 60 67 Respiratory 16 16 Rate Blood Pressure 106/78 99/65 O2 Sat by Pulse 87 L 89 L 91 L Oximetry 11/09/18 11/09/18 11/10/18 22:00 22:11 06:00 Temperature 97.6 F 99.8 F H 97.4 F L Pulse Rate 65 94 H 60 Respiratory 18 18 14 Rate Blood Pressure 105/55 L 95/61 104/66 O2 Sat by Pulse 92 L 89 L 98 Oximetry 11/10/18 14:00 Temperature 97.7 F Pulse Rate 67 Respiratory 16 Rate Blood Pressure 129/71 O2 Sat by Pulse 93 L Oximetry Constitutional: Appearance-No acute respiratory distress, Evaluated patient at 7:00 am and then again at 5:30 once labs returned. She is consistent with stated age. Orientation- Oriented x 3, alert talking quietly. +GLASSES Build and Nutrition-[BMI 28] General- Patient is pleasant and cooperative with the interview and exam. Integumentary: General-No rashes, ulcers or lesions. Palpation- Normal skin moisture/turgor. Skin is warm to touch, appropriate. Capillary refill is normal bilateral Upper and lower extremity. Abrasion right medial oneill, stable/ unchanged. NO e/o secondary infection. . ENMT: Nose and sinus- No sinus tenderness along frontal/maxillary region. External appearance normal and midline. Nares- bilateral quiet airflow, no discharge. Nasal mucosa- No bleeding noted and no ulcerations observed.Erythematous Turbinates boggy. Lips- normal color, moist without cracks /lesions Oral Cavity/Palate- hard/soft palate intact without lesions, oral mucosa pink and moist. Oropharynx- no pharyngeal erythema, Uvula midline. No post nasal drip. No exudate. CHEST/LUNG: Inspection- symmetric chest wall no pectus deformity. Normal effort , no distress, no use of accessory muscles. Palpation- nontender sternum, ribline. No abnormal pulsations. Auscultation- Breath sounds diminished throughout all lung pierce. Tracheal sounds, bronchial sounds overlying sternum , Bronchovessicular sounds between scapulae posteriorly, vessicular breath sounds heard throughout periphery coarse. Scattered rhonchi. Intermittent crackles. No egophany, no pectoriloquy. Adventitious sounds- Scattered wheezes, infrequent bibasilar crackling and scattered rhonchi. Coarse sounds may be improving. No consolidation. Definitely not worse, I:E seems close to 1:1 today. CARDIOVASCULAR: Jugular vein- no pulsations. Palpation/Percussion- Normal PMI, no palpable thrill Auscultation- Distant heart sounds. Regular rate and rhythm. No appreciable/prominent murmur noted in sitting, supine positions. Extremities - no digital clubbing, cyanosis, edema, increased warmth. ABDOMEN: Inspection- normal and no visible pulsations. Normal contour. Auscultation- Bowel sounds normal, no abdominal bruits. Palpation/Percussion- soft, non-tender, no rebound tenderness, no rigidity (guarding), no jar tenderness, no masses. Liver-no hepatomegaly, Spleen no splenomegaly, Hernias - none. Rectal not examined. Peripheral Vascular: No peripheral edema Musculoskeletal: Generalized-No generalized swelling or edema of extremities, no digital clubbing or cyanosis, neurovascularly intact all four extremities. Neurological: General- Moves all 4 extremities symmetrically. Symmetrical face and body posture. Cranial nerves- individually evaluated II-XII and intact. PERRLA, Normal EOMI, visual/special senses appear intact, Face is symmetrical and normal sensation/movement, normal tongue, normal strength/posture of neck musculature. Neuropsych: Oriented- Person, place, time. (AAOx3), Mood/affect- normal and congruent. Able to articulate well. Speech-Normal speech, normal rate, normal tone, normal use of language, volume and coherence. Thought content- normal with ability to perform basic computations and apply abstract thought/reason. Associations- intact, no SI/HI, no hallucinations, delusions, obsessions. Judgment/insight- Appropriate. Memory-Recall intact, remote and recent memory intact. Knowledge- Age appropriate fund of knowledge, concentration and attention span normal. Lymphatic: Head/Neck- normal size and non tender to palpation. Laboratory Last Values WBC 4.47 K/ul (4.6-10.2) L 11/10/18 07:50 RBC 3.58 10^6/ul (4.20-5.40) L 11/10/18 07:50 Hgb 10.5 g/dl (12.0-16.0) L 11/10/18 07:50 Hct 32.0 % (37.0-47.0) L 11/10/18 07:50 MCV 89.4 fl (81.0-99.0) 11/10/18 07:50 MCH 29.3 pg (27.0-31.0) 11/10/18 07:50 MCHC 32.8 (31.8-35.4) 11/10/18 07:50 RDW Coeff of Lynda 12.8 % (11.6-14.8) 11/10/18 07:50 Plt Count 122 10^3/uL (140-440) L 11/10/18 07:50 Immature Gran % (Auto) 0.2 % (0.0-5.0) 11/10/18 07:50 Neut % (Auto) 78.8 11/10/18 07:50 Lymph % (Auto) 15.4 (10.0-50.0) 11/10/18 07:50 Fisher % (Auto) 5.6 (0-10) 11/10/18 07:50 Eos % (Auto) 0.0 % (0.0-7.0) 11/10/18 07:50 Baso % (Auto) 0.0 % (0.0-3.0) 11/10/18 07:50 Immature Gran # (Auto) 0.0 (0.0-1.0) 11/10/18 07:50 Neut # (Auto) 3.5 K/ul (2.0-6.9) 11/10/18 07:50 Lymph # (Auto) 0.7 K/uL (0.60-3.4) 11/10/18 07:50 Fisher # (Auto) 0.3 K/uL (0.4-2.0) L 11/10/18 07:50 Eos # (Auto) 0.0 K/ul (0.0-0.7) 11/10/18 07:50 Baso # (Auto) 0.0 K/uL (0-0.2) 11/10/18 07:50 Puncture Site lb 11/10/18 04:13 O2 Saturation 81.0 % (95-100) L 11/10/18 04:13 ABG pH 7.332 (7.35-7.45) L 11/10/18 04:13 ABG pCO2 48.4 mmHg (35-45) H 11/10/18 04:13 ABG pO2 49.0 mmHg (85-100) L* 11/10/18 04:13 ABG HCO3 25.6 (22.0-26.0) 11/10/18 04:13 ABG Total CO2 27 (22.0-28.0) 11/10/18 04:13 ABG Base Excess 0 (-2.0-2.0) 11/10/18 04:13 Aaron Test + 11/10/18 04:13 O2 Delivery Device Nc 11/08/18 11:56 Oxygen Liter Flow 2.00 11/08/18 11:56 FiO2 % 21.0 % 11/10/18 04:13 Sodium 139.9 mmol/L (134.5-145) 11/10/18 07:50 Potassium 4.23 mmol/L (3.5-5.1) 11/10/18 07:50 Chloride 106.2 mmol/L (98-107) 11/10/18 07:50 Carbon Dioxide 26.9 mmol/L (22-30.0) 11/10/18 07:50 Anion Gap 11.03 11/10/18 07:50 BUN 27.7 mg/dL (7-17) H 11/10/18 07:50 Creatinine 1.10 mg/dL (0.60-1.30) 11/10/18 07:50 Estimated GFR (MDRD) 50.00 mL/min 11/10/18 07:50 BUN/Creatinine Ratio 25.18 11/10/18 07:50 Glucose 114.5 mg/dL (74-106) H 11/10/18 07:50 Lactic Acid 0.78 mmol/L (0.7-2.1) 11/08/18 08:58 Calcium 8.32 mg/dL (8.4-10.2) L 11/10/18 07:50 Total Bilirubin 0.19 mg/dL (0.2-1.3) L 11/10/18 07:50 AST 18.4 U/L (14-36) 11/10/18 07:50 ALT 14.2 U/L (0-35) 11/10/18 07:50 Alkaline Phosphatase 63.6 U/L (53-141) 11/10/18 07:50 Total Creatine Kinase 303.2 U/L (30-135) H 11/09/18 02:30 CK-MB (CK-2) 1.420 ng/ml (0.0-2.38) 11/09/18 02:30 CK-MB (CK-2) % 0.4600 11/09/18 02:30 Troponin I < 0.012 ng/ml (0.0000-0.120) 11/08/18 08:58 Total Protein 6.07 g/dL (6.3-8.2) L 11/10/18 07:50 Albumin 3.00 g/dL (3.5-5.0) L 11/10/18 07:50 Globulin 3.07 11/10/18 07:50 Albumin/Globulin Ratio 0.97 11/10/18 07:50 Procalcitonin 0.06 ng/mL (0.09) 11/08/18 08:58 Influ A Molecular Assay Positive by naat (NEGATIVE) H 11/08/18 08:58 Influ B Molecular Assay Negative by naat (NEGATIVE) 11/08/18 08:58 (1) Influenza A Status: Acute Code(s): J10.1 - FLU DUE TO OTH IDENT INFLUENZA VIRUS W OTH RESP MANIFEST SNOMED Code(s): 350618472 (2) Anemia Status: Acute Code(s): D64.9 - ANEMIA, UNSPECIFIED SNOMED Code(s): 229646468 (3) Thrombocytopenia Status: Acute Code(s): D69.6 - THROMBOCYTOPENIA, UNSPECIFIED SNOMED Code(s) : 590883882 (4) Renal failure Status: Acute Code(s): N19 - UNSPECIFIED KIDNEY FAILURE SNOMED Code(s): 43908108 (5) Shortness of breath Status: Acute Code(s): R06.02 - SHORTNESS OF BREATH SNOMED Code(s): 142776371 (6) Medication non-compliance due to excessive pill burden Status: Acute Code(s): Z91.14 - PATIENT'S OTHER NONCOMPLIANCE WITH MEDICATION REGIMEN SNOMED Code(s): 561845226 (7) Somnolence Status: Acute Code(s): R40.0 - SOMNOLENCE SNOMED Code(s): 699349075 Plan: Influenza A: HD day 3 admitted 11/08/18. Plan D/C on 11/11/18. Tamiflu 30 BID to continue as CrCl now at 50. Cr Cl is now at 64, will complete 30 mg BID and discharge on Relenza as Tamfilu is not covered by insurance. Would like at least 5 days of treatment. Improving/stable problem. Kidney function is improving. This is now day 3 and I still do not fell that she is having COPD exacerbation nor pneumonia. Abx were stopped yesterday. O2 sats ~90%. No fever. WBC increased to 4.47. This still has a viral pattern with lymphocytosis. - Continue Admit to room 120-1 inpatient Hospital Day 3 - Continue Droplet isolation - Continue Tamiflu 30mg BID based on CrCl of ~60-64 ml/min. Plan to d/c tomorrow on relenza as tamiflu not covered by insurance. We will treat 5 days out of hospital. - O2 titrate to 92-98%. - Repeat CBC/CMP q am. - Encourage OOB during day. - Stop abx. d/c in the am tomorrow. - Incentive spirometry, encourage deeper inspiration. COPD: Minimal symptoms. I do not feel that she is in exacerbation. I think she is at baseline status regarding this chronic problem. We have continued nebs. ABG showed that she is still in primary respiratory acidosis chronically with secondary metabolic acidosis. Still quite hypoxic without accessory O2. We will resume o2 and have her use her normal home O2 at home. Continue her duoneb QID. NO benefit to abx for now. - Duoneb QID. - Incentive spirometry. JOSE JUAN: Improving, nearly back to baseline. Creatinine has changed from 1.53 to 1.41 now to 1.10 GFR up to 50. We will continue to fluid hydrate at 125ml/hour to improve renal function. We will continue to monitor/repeat CMP in am. Creatinine baseline ranges 0.85 to 1.13 since 2016. Has had partial left nephrectomy. Nausea resolved. - Vascular access is poor, femoral central line is in and running. - CMP in am. - Nephrology f/u as outpatient. Epigastric Pain: Appears to have resolved. NO c/o at this time. Still suspect PUD as most likely etiology. Some benefit from peptobismol, not using this in hospital. I will have her f/u with GI as outpatient. Not using ETOH, denied increased NSAIDS. - Continue Monitor for now. - Consider stool hemoccult. Chronic anemia: Mildly worse, hgb 10.5 down from 11.8. Remains Normocytic per lab. Monitor CBC, repeat in am. - CBC in am Thrombocytopenia: Stable/essentially unchanged. Monitor CBC, repeat in am. - CBC in am. Tobacco: Doing well with nicotine patches. We reviwed this again today. Talke with today. Lifestyle choices d/w family and with patient. - Nicoderm 21mg patch. R/B/A d/w patient. DVT Prophy: Lovenox -40 mg daily. Diet: Regular Activity: UP with assist. Isolation: Droplet. Maintenance fluids: Sodium/K+ remain stable. We will repeat CMP in am tomorrow. - Continue fluids at 125ml/hour for acute kidney injury. Polypharmacy: Chronic problem, stable. Kidney function is improving. Will need to address medications and psych meds specifically as outpatient. Non compliance: Meds in bed. Discussed to not take meds from home. Disposition: Patient is stable/improving. She is tolerating tamiflu w/o SE. Renal function continues to improve with IV fluids. Difficult vascular access femoral line is intact and doing well. GI pain is better/resolved, no issues with this today. Voiding urine well. No BM in hospital. No emesis in hospital. Femoral line in right femoral appears patent, no erythema, no e/o infection. Reviewed overnight labs, no new radiology, history obtained from overnight nurses, reviewed telemetry, reviewed/interpreted new ABG on RA. She needs home O2. MDM remains high based on number of problems, polypharmacy. JOSE JUAN improving, INfluenza stable, BP stable, hypoxia stable. >30 minutes spent in rounding today.
[2018-11-11] MEDS: DUONEB NEB SCH ×2 (04:20→10:20)
[2018-11-11] MEDS: PRILOSEC PO SCH (06:15)
[2018-11-11 06:39] VITALS: BP 158/80; TEMP 98
[2018-11-11] MEDS: FLEXERIL PO SCH (10:00)
[2018-11-11] MEDS: NORCO 10-325 PO SCH (10:00)
[2018-11-11] MEDS: XANAX PO SCH (10:00)
[2018-11-11] MEDS: SYMBICORT 160-4.5 MCG INHALER IH SCH (10:03)
[2018-11-11] MEDS: LOPRESSOR PO SCH (10:03)
[2018-11-11] MEDS: PREDNISONE PO SCH (10:04)
[2018-11-11] MEDS: ZESTRIL PO SCH (10:04)
[2018-11-11] MEDS: LEXAPRO PO SCH (10:04)
[2018-11-11] MEDS: NEURONTIN PO SCH (10:05)
[2018-11-11] MEDS: TAMIFLU PO SCH (10:05)
[2018-11-11] MEDS: BENTYL PO SCH (10:05)
[2018-11-11] MEDS: NICODERM 21 MG TD SCH (10:06)
--- NOTE | 2018-11-11 12:37 | PCM.DC ---
Final Diagnosis: 1. Influenza A w/ SOA 2. JOSE JUAN 3. COPD Chronic (not in exacerbation). - Chronic asthma as well 4. Tobacco abuse 5. Polysubstance abuse 6. Numerous medication allergies 7. Essential HTN 8. GERD 9. CKD 10. CVA historically 11. Schizophrenia 12. Chronic rheumatoid arthritis 13. Colonic resection 14. S/P partial nephrectomy 15. Pacemaker 16. Left leg ORIF 17. Hip surgery historically 18. Chronic anemia 19 Thrombocytopenia (1) Influenza A Status: Acute Code(s): J10.1 - FLU DUE TO OTH IDENT INFLUENZA VIRUS W OTH RESP MANIFEST SNOMED Code(s): 840039819 (2) Anemia Status: Acute Code(s): D64.9 - ANEMIA, UNSPECIFIED SNOMED Code(s): 716011922 Qualifiers: Anemia type: unspecified type Qualified Code(s): D64.9 - Anemia, unspecified (3) Thrombocytopenia Status: Acute Code(s): D69.6 - THROMBOCYTOPENIA, UNSPECIFIED SNOMED Code(s) : 306168311 (4) Renal failure Status: Acute Code(s): N19 - UNSPECIFIED KIDNEY FAILURE SNOMED Code(s): 89868618 Qualifiers: Chronic kidney disease stage: unspecified stage (5) Shortness of breath Status: Acute Code(s): R06.02 - SHORTNESS OF BREATH SNOMED Code(s): 245397082 (6) Polysubstance abuse Status: Acute Code(s): F19.10 - OTHER PSYCHOACTIVE SUBSTANCE ABUSE, UNCOMPLICATED SNOMED Code(s): 913858744 (7) Altered mental status Status: Acute Code(s): R41.82 - ALTERED MENTAL STATUS, UNSPECIFIED SNOMED Code(s): 920014433 Reason for Hospitalization: 1. Influenza A 2. JOSE JUAN on CKD 3. Difficult vascular access 4. Thrombocytopenia 5. Anemia Prognosis at Discharge: Guarded: Concern regarding her understanding of dangers of combination of meds. Xanax+Ambien+seroquel+Flexeril+Xanax. Improved overall but had to have a lengthy discussion today about appropriate use of meds and not double dosing them. Creatinine has improved. Anemia is stable, thrombocytopenia is stable. She has been on 3.5 days of tamiflu. I will have to discharge on relenza as tamiflu not covered by insurance. She feels better. Last 2 days found in bed with pills from home, she was double dosing. She produced in room 2 pill organizers today. She has multiple stashes at home per male front desk host in room. Condition at Discharge: Regarding influenza/SOA better. She had poor ABG on RA, much better on O2. We evaluated this and she will need to continue home O2. Renal function improved drastically and is back at baseline by D/C. SHe has anemia, improving leukocytopenia and thrombocytopenia that are stable. Viral process can somewhat explain this. Recommended f/u in clinic for additional w/u. Medications at Discharge: Ambulatory Orders Medication Instructions Recorded Quetiapine Fumarate [Seroquel] 600 mg PO BEDTIME 10/29/16 Dicyclomine HCl 10 mg PO TID 11/21/16 Hydroxyzine HCl 25 mg PO BEDTIME 12/24/16 Zolpidem Tartrate [Ambien] 10 mg PO BEDTIME 10/08/17 Alprazolam [Xanax] 0.5 mg PO TID 01/04/18 Escitalopram Oxalate [Lexapro] 20 mg PO DAILY 07/22/18 Hydrocodone Bit/Acetaminophen 1 tab PO TID 11/08/18 [Pinon 10-325] Cyclobenzaprine HCl 1 tab PO BID 11/09/18 Nicotine 21 mg [Nicoderm 21 mg] 1 patch TD DAILY 14 Days #14 11/11/18 patch.td24 Zanamivir [Relenza] 2 inh IH BID 5 Days #20 blst.w.dev 11/11/18 Lab/Diagnostics: Laboratory Last Values WBC 4.30 K/ul (4.6-10.2) L 11/11/18 07:29 RBC 3.47 10^6/ul (4.20-5.40) L 11/11/18 07:29 Hgb 10.1 g/dl (12.0-16.0) L 11/11/18 07:29 Hct 32.1 % (37.0-47.0) L 11/11/18 07:29 MCV 92.5 fl (81.0-99.0) 11/11/18 07:29 MCH 29.1 pg (27.0-31.0) 11/11/18 07:29 MCHC 31.5 (31.8-35.4) L 11/11/18 07:29 RDW Coeff of Lynda 13.8 % (11.6-14.8) 11/11/18 07:29 Plt Count 126 10^3/uL (140-440) L 11/11/18 07:29 Immature Gran % (Auto) 0.2 % (0.0-5.0) 11/10/18 07:50 Neut % (Auto) 78.8 11/10/18 07:50 Lymph % (Auto) 15.4 (10.0-50.0) 11/10/18 07:50 [place] % (Auto) 5.6 (0-10) 11/10/18 07:50 Eos % (Auto) 0.0 % (0.0-7.0) 11/10/18 07:50 Baso % (Auto) 0.0 % (0.0-3.0) 11/10/18 07:50 Immature Gran # (Auto) 0.0 (0.0-1.0) 11/10/18 07:50 Neut # (Auto) 3.5 K/ul (2.0-6.9) 11/10/18 07:50 Lymph # (Auto) 0.7 K/uL (0.60-3.4) 11/10/18 07:50 [place] # (Auto) 0.3 K/uL (0.4-2.0) L 11/10/18 07:50 Eos # (Auto) 0.0 K/ul (0.0-0.7) 11/10/18 07:50 Baso # (Auto) 0.0 K/uL (0-0.2) 11/10/18 07:50 Neutrophils % (Manual) 69.0 % (42.2-75.2) 11/11/18 07:29 Band Neutrophils % 2.0 % (0.0-5.0) 11/11/18 07:29 Lymphocytes % (Manual) 25.0 % (10.0-50.0) 11/11/18 07:29 Monocytes % (Manual) 4.0 % (0.0-10.0) 11/11/18 07:29 Anisocytosis Not present (NOT PRESENT) 11/11/18 07:29 Puncture Site lb 11/10/18 04:13 O2 Saturation 81.0 % (95-100) L 11/10/18 04:13 ABG pH 7.332 (7.35-7.45) L 11/10/18 04:13 ABG pCO2 48.4 mmHg (35-45) H 11/10/18 04:13 ABG pO2 49.0 mmHg (85-100) L* 11/10/18 04:13 ABG HCO3 25.6 (22.0-26.0) 11/10/18 04:13 ABG Total CO2 27 (22.0-28.0) 11/10/18 04:13 ABG Base Excess 0 (-2.0-2.0) 11/10/18 04:13 Aaron Test + 11/10/18 04:13 O2 Delivery Device Nc 11/08/18 11:56 Oxygen Liter Flow 2.00 11/08/18 11:56 FiO2 % 21.0 % 11/10/18 04:13 Sodium 142.8 mmol/L (134.5-145) 11/11/18 07:29 Potassium 4.12 mmol/L (3.5-5.1) 11/11/18 07:29 Chloride 110.3 mmol/L (98-107) H 11/11/18 07:29 Carbon Dioxide 26.2 mmol/L (22-30.0) 11/11/18 07:29 Anion Gap 10.42 11/11/18 07:29 BUN 17.1 mg/dL (7-17) H 11/11/18 07:29 Creatinine 0.85 mg/dL (0.60-1.30) 11/11/18 07:29 Estimated GFR (MDRD) 68.00 mL/min 11/11/18 07:29 BUN/Creatinine Ratio 20.11 11/11/18 07:29 Glucose 100.3 mg/dL (74-106) 11/11/18 07:29 Lactic Acid 0.78 mmol/L (0.7-2.1) 11/08/18 08:58 Calcium 8.33 mg/dL (8.4-10.2) L 11/11/18 07:29 Total Bilirubin 0.20 mg/dL (0.2-1.3) 11/11/18 07:29 AST 20.9 U/L (14-36) 11/11/18 07:29 ALT 14.1 U/L (0-35) 11/11/18 07:29 Alkaline Phosphatase 59.3 U/L (53-141) 11/11/18 07:29 Total Creatine Kinase 303.2 U/L (30-135) H 11/09/18 02:30 CK-MB (CK-2) 1.420 ng/ml (0.0-2.38) 11/09/18 02:30 CK-MB (CK-2) % 0.4600 11/09/18 02:30 Troponin I < 0.012 ng/ml (0.0000-0.120) 11/08/18 08:58 Total Protein 6.30 g/dL (6.3-8.2) 11/11/18 07:29 Albumin 3.03 g/dL (3.5-5.0) L 11/11/18 07:29 Globulin 3.27 11/11/18 07:29 Albumin/Globulin Ratio 0.92 11/11/18 07:29 Procalcitonin 0.06 ng/mL (0.09) 11/08/18 08:58 Influ A Molecular Assay Positive by naat (NEGATIVE) H 11/08/18 08:58 Influ B Molecular Assay Negative by naat (NEGATIVE) 11/08/18 08:58 H/H Trends 11/08/18 11/09/18 11/10/18 Range/Units 08:58 06:56 07:50 Hgb 11.5 L 11.8 L 10.5 L (12.0-16.0) g/dl Hct 34.7 L 35.8 L 32.0 L (37.0-47.0) % 11/11/18 Range/Units 07:29 Hgb 10.1 L (12.0-16.0) g/dl Hct 32.1 L (37.0-47.0) % WBC Trends 11/08/18 11/09/18 11/10/18 Range/Units 08:58 06:56 07:50 WBC 5.12 2.46 L 4.47 L (4.6-10.2) K/ul 11/11/18 Range/Units 07:29 WBC 4.30 L (4.6-10.2) K/ul Na/K Trends 11/08/18 11/09/1819 Range/Units 08:58 02:30 07:50 Sodium 133.9 L 137.5 139.9 (134.5-145) mmol/L Potassium 3.86 5.02 4.23 (3.5-5.1) mmol/L 11/11/18 Range/Units 07:29 Sodium 142.8 (134.5-145) mmol/L Potassium 4.12 (3.5-5.1) mmol/L Imaging ER: Chest XR: Mild central vascular congestion CT Chest without: Findings suggesting small airways infection/inflammation. Patchy ground glass nodularity in right lung likely infectious/inflammatory pneumonitis. CT chest f/u in 6 months recommended. Emphysema, cardiac pacer, atherosclerosis. Pelvis XR: Right Femoral Line that terminates in right medial thigh just inferior to level of lesser trochanter. ASubactue fracture left superior pubic ramus. remodeling of tirhg inferior pubic ramus old healed fracture. Left femoral ORIF. Education Provided to Patient and Family: 1. Influenza: Relenza, Virus 2. Smoking cessation: Patches, lifestyle 3. Polysubstance abuse/take Rx only as Rx. 4. F/U in 1 week with GAMEMASTER Saskiarison 5. CT chest w/o contrast 6 months Follow-ups: 1. GAMEMASTER Saskiarison [address] Mario FARMER 3. Dr. Mariposa FARMER. 4. CT chest without contrast 6 months. Disposition: HOME SELF-CARE Hospital Course: 63 yo WF admitted to room 120-[facility] by DR. Jovel on 11/08/18. The patient was present with Ex arrived in ER w/ N/V/SOA and was found to be INfluenza A +. She saw GAMEMASTER larrison on 11/01/18 w/ 1 week nausea used multiple meds to control nausea. Polypharmacy, anemia, thrombocytopenia were noted, JOSE JUAN on CKD was noted. She was able to eat/drink but Fried and fatty foods caused most issues. Previous GB w/u negative up to US. Discussed HIDA and may benefit from this as outpatient. In ER no chest pain, no radiation, no neck/arm pain. No other sick contacts. Chronic medical problems anxiety, pacemaker, COPD/Emphysema, depression,HTN, AWILDA using CPAP nightly, home O2 regularly. Chronic opiates, benzos, sleeping aids, antipsychotics, polypharmacy is prevalent in this patient. Smokes 1 ppd 40+ years, not interested in quitting. Did request patch while in hospital (provided at d/c too ). Patient arrived in ER 11/08/18 at 08:12. Vitals reviewed temperature 99.8, pulse 94, RR 18 and BP 95/61. She did not meet SIRS criteria based on vitals and WBC was <12. Reported to ER SOA worsening 2 days, Nausea with about 3-4 total bouts of non bloody, mucoid, regurgitant emesis over past 1 week, no diarrhea. She notes SOA is intermittent, body aches, generalized 5/10 REESE, mild CALABRESE. NO Chest pain, no arm pain, no vision changes. Symptoms improved with remaining upright, using bronchodilator medications. URI symptoms x 2-3 days, subjective fever but none present at Er. Has been using tylenol with last dose am of admit. Not using accessory muscles in ER, diminished breath sounds present. NO new falls, no altered mental status, no confusion, +Cough, + orthopnea, SOA, wheezing. Difficult IV initiation, central line placed into right femoral by DR. Valle. She was given O2 and improved. I saw patient at 12 :28 am. WBC noted 5.12, anemia w/ hgb 11.5, plt 137. Sodium 133.9, K+ 3.86, cl 100.3, CO2 29.5. BUN 17, Cr 1.53 (baseline has been <1) and glucose 107.8. ABG completed and evaluated by me personally. The pattern was a chronic primary respiratory acidosis with secondary metabolic acidosis. CK was elevatd 351.3, troponin was negative. Lactic acid was 0.78 and negative, procalcitonin was negative at 0.06. Flu A was Positive. In ER she had EKG, Neb tx, Blood culture, CBC/CMP, CK, LA, procalc, strep ordered, troponin. She was given rocephin 2gram, duoneb, solumedrol 125mg and imaging of chest w/ CXR, CT chest and pelvix Xray ordered. CT small airway inflammation/infection, pneumonitis is possible. Emphysema. Pelvis xray done after central line placed showed that right femoral line terminated at level of lesser trochanter. CBC/CMP daily were monitored and she became pancytopenic with leukocytopenia improving throughout stay. She had drop in hgb but this was above transfusion level and somewhat due to dilution. Polypharmacy is present, she had issues while in hospital with taking too many of her medications, double dosing. I am uncertain if this may be secondary to her diet, daily activity and medication use. Her Creatinine steadily improved, repeat ABG on room air showed poor oxygenation. She is on home o2 regularly. I would continue home o2 and if needed we can complete paperwork as outpatient. THe patient improved steadily, did not get out of bed much, which is normal per her ex . Breathing remained stable, she remained afebrile throughout hospital stay. She was started on tamiflu at admit and has completed all but ~1.5 days worth. This is not covered by insurance and I will change this to relenza. I will have her complete 5 days of this Rx 2 puffs BID. REsume home meds for now (see below). Keep appt in 1 week with SEUN Obrien, needs referral for kidney specialty, repeat CT chest w/o contrast in 6 months. Calcium appeared low but corrected. She had no other issues other than medication overuse, which was addressed below. 11/10/18 she was found with pill of flexeril in bed, from a home supply. 11/11/18 she was found with flexeril and xanax 0.5mg. I am concerned about Polysusbtance Abuse. I discussed that i would like to contact Dr. Jerez to discuss issues with polysubstance abuse and to also contact Dr. Monge as well to discuss issues with concern over polysubstance abuse. She is not being safe with meds. Lengthy discussion today at discharge, with Nita in room, detailing these concerns. 2 days in a row pills from home found in bed. YEsterday was flexeril, today was xanax 0.5 and flexeril. Patient is taking home meds and our meds. When I discussed this with her she noted that she was hurting. I asked how she thought Dr. Monge would feel if he knew this or dr. jerez and she said not to tell them as they would cut her off. She has #2 pill planners in room at present, 1 in bedside table and the other located in her bag, grabbed by ex . The patient, male front desk host, myself and nita discussed drug addiction and concern. She was more focused on not losing her substances than anything else. I am afraid for her health and discussed multiple times that she is not taking these safely and that this needs to be addressed. I discussed mechanism of action, discussed meds can lead to respiratory distress and can be fatal. District Attorney spoke up agreed, she stashes pills around the house and he thinks she has a problem as well. I will start process to try to help her. At present she does not feel that this is helping and is worried about losing her supply of meds. Surgical Instrument Maker present during entire encounter today. She was too somnolent this am and I had to return 4 hours later to talk with her as this am she was slurring speech and barely arousable. Now functional, eating lunch. She is better now, meds wearing off. She does not remember what she took last night but noted that she needed more because "I HURT." No attempt at suicide. She took home meds in addition to hospital meds, which is concerning as this was very dishonest and unsafe. At this time we will not provide controlled rx through our clinic and future hospital stays will only allow for PRN dosing to make sure she is able to take these meds safely. I will talk with DR. Jerez, or at least try to get into contact with provider. Pain management, I feel that she is abusing these and I feel that pain management needs to know as well. I do not want this to be a punishment, I noted this several times but the pain provider needs to be aware. Smoking cessation Encouraged at length, she is not interested. I did provide rx for her for patches if she should change her mind. We spent at least 2 minutes today discussing this. Day of D/C physical examination: 11/11/18 Last Vital Signs Temp 98.0 F 11/11/18 06:00 Pulse 72 11/11/18 06:00 Resp 18 11/11/18 06:00 BP 158/80 H 11/11/18 06:00 Pulse Ox 95 11/11/18 10:00 AM 11/11/18 7:15 Constitutional: Appearance- Somnolent, groggy, slurring words, oriented to name , hospital. DId not know my name, repeated thursday for day/date/month. She is not in any acute distress, tolerating O2 and sating at 90-100. She is acutely sedated from medications. No acute respiratory distress, sleeping upon entry, difficult to awaken. SnoringOrientation- Oriented x 1, Build and Nutrition-[mildly overweight BMI 28] General- Patient has overmedicated self and is somnolent. We have talked with nursing. monitor over next 4 hours and call when she wakes up, no further sedating meds for now. CHEST/LUNG: Inspection- symmetric chest wall no pectus deformity. Normal effort , no distress, no use of accessory muscles. Palpation- nontender sternum, ribline. No abnormal pulsations. Auscultation- Breath sounds diminished throughout all lung pierce. Tracheal sounds, bronchial sounds overlying sternum , Bronchovessicular sounds between scapulae posteriorly, vessicular breath sounds heard throughout periphery coarse. Scattered rhonchi. Intermittent crackles. No egophany, no pectoriloquy. Adventitious sounds- Scattered wheezes, infrequent bibasilar crackling and scattered rhonchi. Integumentary: General-No rashes, ulcers or lesions. Palpation- Normal skin moisture/turgor. Skin is warm to touch, appropriate. Capillary refill is normal bilateral Upper and lower extremity. Abrasion right medial oneill, stable/ unchanged. CARDIOVASCULAR: Jugular vein- no pulsations. Palpation/Percussion- Normal PMI, no palpable thrill Auscultation- Distant heart sounds. Regular rate and rhythm. No appreciable/prominent murmur noted in sitting, supine positions. Extremities - no digital clubbing, cyanosis, edema, increased warmth. ABDOMEN: Inspection- normal and no visible pulsations. Normal contour. Auscultation- Bowel sounds normal, no abdominal bruits. Palpation/Percussion- soft, non-tender, no rebound tenderness, no rigidity (guarding), no jar tenderness, no masses. Liver-no hepatomegaly, Spleen no splenomegaly, Hernias - none. Rectal not examined. Peripheral Vascular: No peripheral edema noted. Right Femoral line in place. Neuropsych: Oriented- Person, Mood/affect- sedated, unable to answer questions. Speech-Slurred speech, slow rate, decreased tone, fell back to sleep. Thought content- abnormal with inability to perform basic computations and apply abstract thought/reason. Associations- non-intact, no SI/HI, no hallucinations, delusions, obsessions. Focused on pain and using meds. Judgment/insight- Inappropriate/questionable. Lymphatic: Head/Neck- normal size and non tender to palpation. Repeat examination 11/11/18 12:30 Back to baseline state Constitutional: Appearance-No acute respiratory distress, sleeping upon entry, easily awoken. She is consistent with stated age. Orientation- Oriented x 3, alert talking quietly. Build and Nutrition-[mildly overweight BMI 28] General- Patient is pleasant and cooperative with the interview and exam. Integumentary: General-No rashes, ulcers or lesions. Palpation- Normal skin moisture/turgor. Skin is warm to touch, appropriate. Capillary refill is normal bilateral Upper and lower extremity. Abrasion right medial oneill, stable/ unchanged. . ENMT: Nose and sinus- No sinus tenderness along frontal/maxillary region. External appearance normal and midline. Nares- bilateral quiet airflow, no discharge. Nasal mucosa- No bleeding noted and no ulcerations observed. [place], moist. Turbinates boggy. Lips- normal color, moist without cracks/lesions Oral Cavity/Palate- hard/soft palate intact without lesions, oral mucosa pink and moist. Oropharynx- no pharyngeal erythema, Uvula midline. No post nasal drip. No exudate. CHEST/LUNG: Inspection- symmetric chest wall no pectus deformity. Normal effort , no distress, no use of accessory muscles. Palpation- nontender sternum, ribline. No abnormal pulsations. Auscultation- Breath sounds diminished throughout all lung pierce. Tracheal sounds, bronchial sounds overlying sternum , Bronchovessicular sounds between scapulae posteriorly, vessicular breath sounds heard throughout periphery coarse. Scattered rhonchi. Intermittent crackles. No egophany, no pectoriloquy. Adventitious sounds- Scattered wheezes, infrequent bibasilar crackling and scattered rhonchi. Unchanged from exam yesterday. Perhaps deeper inspiration. CARDIOVASCULAR: Jugular vein- no pulsations. Palpation/Percussion- Normal PMI, no palpable thrill Auscultation- Distant heart sounds. Regular rate and rhythm. No appreciable/prominent murmur noted in sitting, supine positions. Extremities - no digital clubbing, cyanosis, edema, increased warmth. ABDOMEN: Inspection- normal and no visible pulsations. Normal contour. Auscultation- Bowel sounds normal, no abdominal bruits. Palpation/Percussion- soft, non-tender, no rebound tenderness, no rigidity (guarding), no jar tenderness, no masses. Liver-no hepatomegaly, Spleen no splenomegaly, Hernias - none. Rectal not examined. Peripheral Vascular: No peripheral edema noted. Musculoskeletal: Generalized-No generalized swelling or edema of extremities, no digital clubbing or cyanosis, neurovascularly intact all four extremities. Neurological: General- Moves all 4 extremities symmetrically. Symmetrical face and body posture. Cranial nerves- individually evaluated II-XII and intact. PERRLA, Normal EOMI, visual/special senses appear intact, Face is symmetrical and normal sensation/movement, normal tongue, normal strength/posture of neck musculature. Neuropsych: Oriented- Person, place, time. (AAOx3), Mood/affect- normal and congruent. Able to articulate well. Speech-Normal speech, normal rate, normal tone, normal use of language, volume and coherence. Thought content- normal with ability to perform basic computations and apply abstract thought/reason. Associations- intact, no SI/HI, no hallucinations, delusions, obsessions. Judgment/insight- Appropriate. Memory-Recall intact, remote and recent memory intact. Knowledge- Age appropriate fund of knowledge, concentration and attention span normal. Lymphatic: Head/Neck- normal size and non tender to palpation. Plan: 1. D/C home 2. Activity ad yi: resume regular activities 3. Diet: resume regular 4. Appt with SEUN obrien in 1 week 5. Make appt with DR. Mario FARMER 6. Make appt with DR. Mariposa FARMER 7. Take meds only as Rx. Do not take this differently. 8. Smoking cessation encouraged 9. Resume Home oxygen 10. NO controlled Rx will be given through clinic. 11. Repeat CBC in [address] chest in 6 months w/o contrast. 13. Treatment with relenza for flu for next 5 days. needs close f/u. Only new med at d/c is relenza for flu Disease specific education: 1. Polysubstance abuse: Opiate, benzo, sedative/hypnotic, TCA - Concern about all of these agents in concert, need to talk with psych and pain management. >30 minutes today spent in d/c. She was safe for d/c at time of d/c this afternoon.
== END 2018-11-11 13:10 | disposition home or self-care (01) | DRG 193 ==
LOC: ED 08:09 → MEDSURG B 13:04
PROVIDERS: ADMIT Family Medicine; ATTEND Family Medicine
DX: J10.1 Influenza due to other identified influenza virus with other respiratory manifestations (principal); J96.02 Acute respiratory failure with hypercapnia; J06.9 Acute upper respiratory infection, unspecified; J44.9 Chronic obstructive pulmonary disease, unspecified; D64.9 Anemia, unspecified; D69.6 Thrombocytopenia, unspecified; N19 Unspecified kidney failure; F19.10 Other psychoactive substance abuse, uncomplicated; R06.02 Shortness of breath; R06.00 Dyspnea, unspecified; R05 Cough; R53.1 Weakness; R63.0 Anorexia; R41.82 Altered mental status, unspecified
CPT/HCPCS: 36415; 80053; 82550; 82553; 82803; 83605; 84145; 84484; 85007; 85025; 87040; 87502; 87651; 93005; 93010; 94640; 96361; 96365; 96375; 99223; 99233; 99239; 99284

== ENCOUNTER 2018-11-19 11:24 | Emergency (ER) ==
[2018-11-19 11:35] VITALS: TEMP 97.1; BMI 28.3
--- NOTE | 2018-11-19 12:25 | ED.PDOC ---
General ED Provider: Dr. JIHAN MACDONALD Chief Complaint: Abdominal Pain Stated Complaint: nausea and stomach cramp Time Seen by Physician: 12:10 Mode of Arrival: Wheelchair Information Source: Patient Exam Limitations: No limitations Primary Care Provider: GENNARO CRUZ Nursing and Triage Documentation Reviewed and Agree: Yes Does patient meet sepsis criteria?: No System Inflammatory Response Syndrome: Not Applicable Sepsis Protocol: For patient's 13 years and over: Temp is 96.8 and below OR 101 and greater Pulse >90 BPM Resp >20/minute Acutely Altered Mental Status Are patient's symptoms suggestive of a new infection, such as: -Pneumonia -Skin, Soft Tissue -Endocarditis -UTI -Bone, Joint Infection -Implantable Device -Acute Abdominal Infection -Wound Infection -Meningitis -Blood Stream Catheter Infection -Unknown Cardiovascular Complaint Exam - Hypertension Complaint/Exam Onset/Duration: today Symptoms Are: Resolved Timing: Intermittent Reported B/P Prior to Arrival: 220/120 Aggravating: Reports: Exertion Alleviating: Reports: Rest Associated Signs and Symptoms: Reports: Dizziness Related History: Reports: Similar episode, Current Kaiden Inhibitors, Current Beta Baljit Related Surgical History: Reports: None Cardiac Risk Factors: Reports: Hypertension Recent Change in Medications: No A/V Nicking: No Papilledema Present: No JVD Present: No Carotid Bruit Present: No Femoral Pulses Bounding: No Differential Diagnoses: Hypertension Review of Systems - Review Of Systems Constitutional: Reports: No symptoms Eyes: Reports: No symptoms Ears, Nose, Mouth, Throat: Reports: No symptoms Respiratory: Reports: No symptoms Cardiac: Reports: No symptoms GI: Reports: No symptoms : Reports: No symptoms Musculoskeletal: Reports: No symptoms Skin: Reports: No symptoms Neurological: Reports: No symptoms Endocrine: Reports: No symptoms Hematologic/Lymphatic: Reports: No symptoms All Other Systems: Reviewed and Negative Past Medical History - Past Medical History Previously Healthy: No Endocrine: Reports: None Cardiovascular: Reports: Hypertension Respiratory: Reports: COPD, Asthma, Pneumonia Hematological: Reports: Anemia Gastrointestinal: Reports: GERD Genitourinary: Reports: CKD Neuro/Psych: Reports: CVA, Schizophrenia Musculoskeletal: Reports: Arthritis (Rheumatoid ), Other Cancer: Reports: None, Unknown Last Menstrual Period: unknown Other Pertinent Past Medical History: colon resection - Surgical History General Surgical History: Reports: Appendectomy, Pacemaker, Orthopedic (LEFT LEG FRACTURE,lorne in leg leg and hip SURGERY), Other (KIDNEY, COLON RESECTION, LEFT LEG) - Family History Family History: Reports: Unknown - Social History Smoking Status: Current every day smoker, Heavy tobacco smoker Hx Substance Use: No Alcohol Screening: None Physical Exam - Physical Exam Appearance: Well-appearing Ill-appearing: None Pain Distress: None Eyes: SETH ENT: Ears normal Neck: Supple Respiratory: Airway patent Musculoskeletal: Normal strength Skin: Warm Neurological: Sensation intact Re-Evaluation - Re-Evaluation Time of Re-Evaluation: 12:55 Status: Improved Vital Signs Stable: Yes Appearance: NAD Lungs: Clear Skin: Warm and Dry Neuro: Alert and Oriented X3 CV: RRR Critical Care Note - Critical Care Note Total Time (mins): 0 Course - Course Orders, Labs, Meds: Orders Category Date Time Status Promethazine HCl [Phenergan 25 mg/ml Vial] MEDS 11/19/18 12:56 Discontinued 25 mg IM ONCE STA Medications Discontinued Medications Generic Name Dose Route Start Last Admin Trade Name Freq PRN Reason Stop Dose Admin Promethazine HCl 25 mg 11/19/18 12:56 11/19/18 13:05 Phenergan 25 Mg/Ml Vial IM 11/19/18 12:57 25 mg ONCE STA Administration Vital Signs: Temp Pulse Resp BP Pulse Ox 11/19/18 11:25 97.1 F L 67 20 199/103 H 92 L ELODIA Risk Score ELODIA Risk Score: Risk Score Odds of by 30D 0 0.1 (0.1-0.2) 1 0.3 (0.2-0.3) 2 0.4 (0.3-0.5) 3 0.7 (0.6-0.9) 4 1.2 (1.0-1.5) 5 2.2 (1.9-2.6) 6 3.0 (2.5-3.6) 7 4.8 (3.8-6.1) Departure - Departure Time of Disposition: 13:18 Disposition: HOME SELF-CARE Discharge Problem: Nausea, Abdominal pain Condition: Good Pt referred to PMD for follow-up: No (follow with PCP of choice) IPMP verified?: No Allergies/Adverse Reactions: Allergies haloperidol [From Haldol] Allergy (Severe, Verified 11/19/18 11:35) swelling in mouth Pt to get medical alert necklace haloperidol lactate [From Haldol] Allergy (Severe, Verified 11/19/18 11:35) swelling in mouth Pt to get medical alert necklace olanzapine [From Zyprexa] Adverse Reaction (Severe, Verified 11/19/18 11:35) Hives oxytetracycline [From Terramycin] Adverse Reaction (Severe, Verified 11/19/18 11 :35) Hives oxytetracycline HCl [From Terramycin] Adverse Reaction (Severe, Verified 11:35) Hives Sulfa (Sulfonamide Antibiotics) Adverse Reaction (Verified 11/19/18 13:20) Abdominal Pain Bacolfen Allergy (Severe, Uncoded 11/08/18 08:18) Anaphylaxis Home Medications: Ambulatory Orders Quetiapine Fumarate [Seroquel] 600 mg PO BEDTIME 10/29/16 Hydroxyzine HCl 25 mg PO BEDTIME 12/24/16 Zolpidem Tartrate [Ambien] 10 mg PO BEDTIME 10/08/17 Alprazolam [Xanax] 0.5 mg PO TID 01/04/18 Escitalopram Oxalate [Lexapro] 20 mg PO DAILY 07/22/18 Hydrocodone Bit/Acetaminophen [[place] 10-325] 1 tab PO TID 11/08/18 Cyclobenzaprine HCl 1 tab PO BID 11/09/18 Nicotine 21 mg [Nicoderm 21 mg] 1 patch TD DAILY 14 Days #14 patch.td24 Zanamivir [Relenza] 2 inh IH BID 5 Days #20 blst.w.dev 11/11/18 Pt. Stabilized Within Hospital's Capabilities/Transferred To: yes Disposition Discussed With: Patient, Family
[2018-11-19] MEDS ORDERED: PHENERGAN 25 MG/ML VIAL IM STA (12:56)
[2018-11-19 13:58] VITALS: BP 158/80
== END 2018-11-19 13:53 | disposition home or self-care (01) ==
LOC: ED 11:24
DX: R10.9 Unspecified abdominal pain (principal); R11.0 Nausea; R42 Dizziness and giddiness; I10 Essential (primary) hypertension; N18.9 Chronic kidney disease, unspecified; Z86.73 Personal history of transient ischemic attack (TIA), and cerebral infarction without residual deficits; Z95.0 Presence of cardiac pacemaker; Z79.899 Other long term (current) drug therapy
CPT/HCPCS: 96372; 99283

== ENCOUNTER 2018-12-01 07:38 | Outpatient (CLI) ==
--- NOTE | 2018-12-01 11:42 | NM ---
Exam: Hepatobiliary scan and gallbladder ejection fraction. Date: 12/01/2018. Comparison: 10/23/2017. HISTORY: Chronic nausea. TECHNIQUE: The patient was injected 4.9 mCi of technetium 99m mebrofenin and imaging over the abdome n was obtained for 1 hour. The patient was then orally administered 12 ounces of Ensure. Imaging wa s carried out for an additional 30 minutes and a gallbladder ejection fraction was calculated. FINDINGS: There is prompt uptake extraction and excretion of the radiotracer by the hepatocytes. Ac tivity is identified in the small bowel beginning at 20 minutes and in the gallbladder at 45 minutes. The gallbladder ejection fraction is 81%. Impression: Normal hepatobiliary scan and gallbladder ejection fraction.
== END 2018-12-01 07:39 | disposition home or self-care (01) ==
LOC: RAD 07:38
PROVIDERS: ATTEND Family Medicine
DX: D64.9 Anemia, unspecified (principal); R11.0 Nausea; R10.11 Right upper quadrant pain

== ENCOUNTER 2018-12-31 11:56 | Outpatient (CLI) | END 2018-12-31 11:57 | disposition home or self-care (01) | LOC: RHC-LAB 11:56 → FCC-LAB 11:57 | PROVIDERS: ATTEND Family Medicine | DX: D61.818 Other pancytopenia (principal); Z51.81 Encounter for therapeutic drug level monitoring; Z79.899 Other long term (current) drug therapy | CPT/HCPCS: 36415; 80306; 85025 ==

== ENCOUNTER 2019-01-03 20:36 | Emergency (ER) ==
[2019-01-03 20:37] VITALS: BMI 28.3
[2019-01-03 20:43] VITALS: TEMP 97.2
--- NOTE | 2019-01-03 21:01 | ED.PDOC ---
General ED Provider: Dr. RANI DE LA PAZ-ER Chief Complaint: Hand Pain/Injury Stated Complaint: I FELL MY HAND AND WRIST HURTS Time Seen by Physician: 20:40 Mode of Arrival: Walk-In Information Source: Patient, Family Exam Limitations: No limitations Primary Care Provider: GENNARO CRUZ Nursing and Triage Documentation Reviewed and Agree: Yes Does patient meet sepsis criteria?: No System Inflammatory Response Syndrome: Not Applicable Sepsis Protocol: For patient's 13 years and over: Temp is 96.8 and below OR 101 and greater Pulse >90 BPM Resp >20/minute Acutely Altered Mental Status Are patient's symptoms suggestive of a new infection, such as: -Pneumonia -Skin, Soft Tissue -Endocarditis -UTI -Bone, Joint Infection -Implantable Device -Acute Abdominal Infection -Wound Infection -Meningitis -Blood Stream Catheter Infection -Unknown Musculoskeletal Complaint Exam - Hand/Wrist Complaint/Exam Location of Pain: Reports: Left, Hand, Wrist Mechanism of Injury: Reports: Trauma Onset/Duration: 2 HRS Symptoms Are: Still present Onset of Pain: Reports: Immediate Initial Severity: Mild Current Severity: Mild Location: Reports: Discrete (LEFT WRIST) Character: Reports: Dull, Aching Alleviating: Reports: Elevation Aggravating: Reports: Movement Associated Signs and Symptoms: Reports: Swelling Tenderness: Present: Radius, Ulna Compartment Syndrome Risk Factors: Present: Pain Differential Diagnoses: Closed Fracture Review of Systems - Review Of Systems Constitutional: Reports: No symptoms Eyes: Reports: No symptoms Ears, Nose, Mouth, Throat: Reports: No symptoms Respiratory: Reports: No symptoms Cardiac: Reports: No symptoms GI: Reports: No symptoms : Reports: No symptoms Musculoskeletal: Reports: Joint pain Skin: Reports: No symptoms Neurological: Reports: No symptoms Endocrine: Reports: No symptoms Hematologic/Lymphatic: Reports: No symptoms All Other Systems: Reviewed and Negative Past Medical History - Past Medical History Previously Healthy: No Endocrine: Reports: None Cardiovascular: Reports: Hypertension Respiratory: Reports: COPD, Asthma, Pneumonia Hematological: Reports: Anemia Gastrointestinal: Reports: GERD Genitourinary: Reports: CKD Neuro/Psych: Reports: CVA, Schizophrenia Musculoskeletal: Reports: Arthritis (Rheumatoid ), Other Cancer: Reports: None, Unknown Last Menstrual Period: none Other Pertinent Past Medical History: colon resection - Surgical History General Surgical History: Reports: Appendectomy, Pacemaker, Orthopedic (LEFT LEG FRACTURE,lorne in leg leg and hip SURGERY), Other (KIDNEY, COLON RESECTION, LEFT LEG) - Family History Family History: Reports: Unknown - Social History Smoking Status: Current every day smoker, Heavy tobacco smoker Hx Substance Use: No Alcohol Screening: None - Immunizations Tetanus Shot up to Date: Yes Physical Exam - Physical Exam Appearance: Well-appearing, No pain distress, Well-nourished Pain Distress: Mild Eyes: SETH, EOMI, Conjunctiva clear ENT: Ears normal, Nose normal, Oropharynx normal Neck: Supple Respiratory: Airway patent Cardiovascular: RRR, Pulses normal, No rub, No murmur GI/: Soft, Nontender, No masses, Bowel sounds normal, No Organomegaly Musculoskeletal: Limited ROM, Limited strength Skin: Warm Neurological: Sensation intact Psychiatric: Affect appropriate Interpretation - Radiology Interpretation Radiology Interpretation By: Radiologist Radiology Results: Negative Critical Care Note - Critical Care Note Total Time (mins): 0 Course - Course Orders, Labs, Meds: Orders Category Date Time Status Splint [ED SPLINT APPLICATION] .ONCE EMERGENCY 01/03/19 22:46 Active Hydrocodone Bit/Acetaminophen [[place] 7.5-325] MEDS 01/03/19 21:52 Discontinued 1 tab PO ONCE STA HAND, LEFT 3 VIEWS Stat RADS 01/03/19 20:43 Completed WRIST, LEFT 3 VIEWS Stat RADS 01/03/19 20:43 Completed Medications Discontinued Medications Generic Name Dose Route Start Last Admin Trade Name Leoq PRN Reason Stop Dose Admin Hydrocodone Bitart/Acetaminophen 1 tab 01/03/19 21:52 01/03/19 21:57 [place] 7.5-325 PO 01/03/19 21:53 1 tab ONCE STA Administration Vital Signs: Temp Pulse Resp BP Pulse Ox 01/03/19 21:47 167/99 H 01/03/19 21:36 167/95 H 01/03/19 21:09 168/105 H 01/03/19 21:00 164/99 H 01/03/19 20:39 97.2 F L 68 20 189/100 H 96 Departure - Departure Time of Disposition: 22:44 Disposition: HOME SELF-CARE Discharge Problem: Injury of hand Wrist injury Qualifiers: Encounter type: initial encounter Laterality: left Qualified Code(s): S69.92XA - Unspecified injury of left wrist, hand and finger(s), initial encounter Instructions: Wrist Injury (ED) Condition: Good Pt referred to PMD for follow-up: Yes IPMP verified?: No Additional Instructions: STAY IN SPLINT---ICE AND ELEVATION---F/U WITH PCP---MONITOR BP AT HOME Allergies/Adverse Reactions: Allergies haloperidol [From Haldol] Allergy (Severe, Verified 01/03/19 21:57) swelling in mouth Pt to get medical alert necklace haloperidol lactate [From Haldol] Allergy (Severe, Verified 01/03/19 21:57) swelling in mouth Pt to get medical alert necklace olanzapine [From Zyprexa] Adverse Reaction (Severe, Verified 01/03/19 21:57) Hives oxytetracycline [From Terramycin] Adverse Reaction (Severe, Verified 01/03/19 21 :57) Hives oxytetracycline HCl [From Terramycin] Adverse Reaction (Severe, Verified 21:57) Hives Sulfa (Sulfonamide Antibiotics) Adverse Reaction (Verified 01/03/19 21:57) Abdominal Pain Bacolfen Allergy (Severe, Uncoded 01/03/19 21:57) Anaphylaxis Home Medications: Ambulatory Orders Quetiapine Fumarate [Seroquel] 600 mg PO BEDTIME 10/29/16 Hydroxyzine HCl 25 mg PO BEDTIME 12/24/16 Zolpidem Tartrate [Ambien] 10 mg PO BEDTIME 10/08/17 Alprazolam [Xanax] 0.5 mg PO TID 01/04/18 Escitalopram Oxalate [Lexapro] 20 mg PO DAILY 07/22/18 Hydrocodone Bit/Acetaminophen [[place] 10-325] 1 tab PO TID 11/08/18 Cyclobenzaprine HCl 1 tab PO BID 11/09/18 Nicotine 21 mg [Nicoderm 21 mg] 1 patch TD DAILY 14 Days #14 patch.td24 Zanamivir [Relenza] 2 inh IH BID 5 Days #20 blst.w.dev 11/11/18 Promethazine HCl 25 mg PO PRN 12/31/18 Disposition Discussed With: Patient, Family
[2019-01-03 21:48] VITALS: BP 167/99
[2019-01-03] MEDS ORDERED: NORCO 7.5-325 PO STA (21:52)
--- NOTE | 2019-01-03 22:34 | DI ---
EXAM: Three-view left hand. HISTORY: Fall. FINDINGS: The bones are intact with no evidence of fracture. The joint spaces are maintained. There is soft tissue swelling in the wrist. Impression: No evidence of fracture. Soft tissue swelling as described.
--- NOTE | 2019-01-03 22:35 | DI ---
EXAM: Three views left wrist. HISTORY: Fall. FINDINGS: Three-view left hand of 01/03/2019 reviewed in conjunction with this exam. The lateral vie w is obliqued which limits the exam. The bones are intact with no evidence of fracture. The joint s paces are maintained. There is soft tissue swelling in the wrist. Impression: No evidence of fracture. Soft tissue swelling as described.
== END 2019-01-03 23:00 | disposition home or self-care (01) ==
LOC: ED 20:36
DX: M25.532 Pain in left wrist (principal); Z72.0 Tobacco use; S69.92XA Unspecified injury of left wrist, hand and finger(s), initial encounter
CPT/HCPCS: 99282

== ENCOUNTER 2019-01-11 08:43 | Outpatient (CLI) | END 2019-01-11 08:44 | disposition home or self-care (01) | LOC: LAB 08:43 | PROVIDERS: ATTEND Family Medicine | DX: R11.0 Nausea (principal); F12.90 Cannabis use, unspecified, uncomplicated; K92.1 Melena; Z79.899 Other long term (current) drug therapy; Z76.5 Malingerer [conscious simulation] | CPT/HCPCS: 36415; 80053; 80306; 85025 ==

== ENCOUNTER 2019-01-25 09:20 | Outpatient (CLI) ==
--- NOTE | 2019-01-25 10:18 | DI ---
EXAM: Three views of the lumbar spine. History: Lower back pain. Comparison: Lumbar spine radiograph 02/20/2017. Findings: Osteopenia. Atherosclerotic vascular calcifications. Hardware seen within the left hip. No change in the mild chronic compression deformities within the lower thoracic spine. No acute fra cture or subluxation. No change in the mild to moderate multilevel disc space narrowing. Impression: No acute osseous abnormality of the lumbar spine. No significant interval change compar ed to the prior study
--- NOTE | 2019-01-25 10:21 | CT ---
EXAM: CT of the cervical spine without contrast History: Cervical neck pain. Comparison: CT cervical spine 11/25/2017 Technique: Multiplanar CT images through the cervical spine were obtained without the administration of IV contrast Findings: Paraseptal emphysema seen within the upper lungs. The visualized airway remains patent. Osteopenia. No acute fracture or subluxation of the cervical spine. No prevertebral soft tissue swe lling. Predental space is not widened. Chondrocalcinosis seen involving the C1-C2 articulation. St able chronic compression deformities within the upper thoracic spine. Mild to moderate multilevel di sc space narrowing is similar to the prior study. C2-3: No significant bony central canal stenosis. Moderate left and mild right bony neural foramina l narrowing secondary to uncovertebral and facet hypertrophy. C3-4: No significant bony central canal stenosis. Mild to moderate bilateral bony neural foraminal narrowing secondary to uncovertebral and facet hypertrophy. C4-5: No significant bony central canal stenosis. Moderate bilateral bony neural foraminal narrowin g secondary to uncovertebral and facet hypertrophy. C5-6: Mild to moderate bony central canal stenosis secondary to facet hypertrophy. Moderate bilater al bony neural foraminal narrowing secondary to uncovertebral and facet hypertrophy. C6-7: No significant bony central canal stenosis. Mild to moderate bilateral bony neural foraminal narrowing secondary to uncovertebral and facet hypertrophy. Impression: 1. No acute osseous abnormality of the cervical spine. 2. Degenerative changes with level by level analysis as detailed above, similar to the prior study.
--- NOTE | 2019-01-25 10:24 | DI ---
EXAM: Three views of the cervical spine. History: Cervical neck pain. Comparison: CT cervical spine 01/25/2019 Findings: Osteopenia. Pacer wires. Atherosclerotic vascular calcifications. No prevertebral soft tissue swelling. Predental space is not widened. No acute fracture or subluxation of the cervical s pine. Mild to moderate multilevel disc space narrowing. Impression: No acute osseous abnormality of the cervical spine
== END 2019-01-25 09:21 | disposition home or self-care (01) ==
LOC: RAD 09:20
PROVIDERS: ATTEND Pain Medicine Interventional Pain Medicine
DX: M51.36 Other intervertebral disc degeneration, lumbar region (principal); M51.37 Other intervertebral disc degeneration, lumbosacral region; M47.816 Spondylosis without myelopathy or radiculopathy, lumbar region; M47.817 Spondylosis without myelopathy or radiculopathy, lumbosacral region; M50.122 Cervical disc disorder at C5-C6 level with radiculopathy; M50.31 Other cervical disc degeneration, high cervical region; M50.321 Other cervical disc degeneration at C4-C5 level; M50.323 Other cervical disc degeneration at C6-C7 level

== ENCOUNTER 2019-01-26 09:34 | Outpatient (CLI) ==
--- NOTE | 2019-01-26 10:31 | CT ---
EXAM: CT of the lumbar spine without contrast History: Lower back pain radiating down left leg. Technique: Multiplanar CT images through the lumbar spine were obtained without the administration o f IV contrast Findings: Calcified granulomas within the spleen. Atherosclerotic vascular calcifications. The vis ualized bladder is distended. Osteopenia. No acute fracture or subluxation of the lumbar spine. Chronic compression deformities a t T11 and T12. Mild multilevel disc space narrowing. Probable bone island within the right iliac neelam ne. Avascular necrosis of the right femoral head. Healing fractures of the right posterior tenth an d eleventh ribs with callus formation. T12-L1: No significant bony central canal stenosis or bony neural foraminal narrowing. L1-L2: No significant bony central canal stenosis or bony neural foraminal narrowing. L2-L3: No significant bony central canal stenosis or bony neural foraminal narrowing. L3-L4: Small disc bulge effacing anterior thecal sac with mild central canal stenosis. No significa nt bony neural foraminal narrowing. L4-L5: Small disc bulge effacing anterior thecal sac with mild to moderate central canal stenosis. Mild to moderate bilateral bony neural foraminal narrowing secondary to ligamentous and facet hypertr ophy. L5-S1: Small disc bulge without significant central canal stenosis. Moderate to severe left and mod erate right bony neural foraminal narrowing secondary to ligamentous and facet hypertrophy. There ma y be encroachment of the left exiting nerve root. Impression: 1. No acute osseous abnormality of the lumbar spine. 2. Level by level analysis as detailed above. There may be encroachment of the left exiting nerve r oot at L5-S1. 3. Distended bladder
== END 2019-01-26 09:35 | disposition home or self-care (01) ==
LOC: RAD 09:34
PROVIDERS: ATTEND Pain Medicine Interventional Pain Medicine
DX: M51.36 Other intervertebral disc degeneration, lumbar region (principal); M51.37 Other intervertebral disc degeneration, lumbosacral region; M47.816 Spondylosis without myelopathy or radiculopathy, lumbar region; M47.817 Spondylosis without myelopathy or radiculopathy, lumbosacral region; M50.122 Cervical disc disorder at C5-C6 level with radiculopathy; M50.31 Other cervical disc degeneration, high cervical region; M50.321 Other cervical disc degeneration at C4-C5 level; M50.323 Other cervical disc degeneration at C6-C7 level

== ENCOUNTER 2019-02-02 15:32 | Outpatient (CLI) | END 2019-02-02 15:33 | disposition home or self-care (01) | LOC: CAR 15:32 | PROVIDERS: ATTEND Psychiatry & Neurology Sleep Medicine | DX: G47.33 Obstructive sleep apnea (adult) (pediatric) (principal) | CPT/HCPCS: 95810 ==